=== PATIENT | female | born 1985 | race Caucasian/White ===

== ENCOUNTER → 2017-05-23 | Outpatient (CLI) | payer SELFPAY ==
[~2017-05-23] MED LIST: PREN1TAB39 PO
--- NOTE | 2017-05-23 09:52 | Diagnostic Imaging Report ---
INDICATION: Right upper quadrant pain. TECHNIQUE: Multiple real-time borjsa scale sonographic images of the abdomen. CORRELATION STUDY: None FINDINGS: LIVER: Normal echotexture within the visualized portions of the liver. Liver length at 19.6 cm, borderline enlarged. GALLBLADDER: No shadowing gallstones or pericholecystic fluid. COMMON BILE DUCT: Upper limits of normal at 5-6 mm. PANCREAS: Largely obscured by overlying bowel gas. SPLEEN: Unremarkable at 9.4 x 4.4 x 4.1 cm. ABDOMINAL AORTA: Obscured. INFERIOR VENA CAVA: Obscured. RIGHT KIDNEY: 10.9 cm. Unremarkable. LEFT KIDNEY: 11.2 cm. Unremarkable. OTHER: None. IMPRESSION: 1. Overall somewhat limited abdominal ultrasound evaluation. Visualized anatomical structures appearing unremarkable. There is noted borderline hepatomegaly as well as the common bile duct being upper limits of normal in size. Dictated by: Dictated on workstation # [id number]
== END ==
LOC: RAD 07:46
PROVIDERS: ATTEND Nurse Practitioner Family
DX: R10.13 Epigastric pain (principal)
CPT/HCPCS: 76700

== ENCOUNTER → 2017-05-30 | Outpatient (CLI) | payer SELFPAY ==
--- NOTE | 2017-05-30 13:57 | Diagnostic Imaging Report ---
INDICATION: Polycystic ovarian syndrome. TECHNIQUE: Multiple Realtime grayscale images of the pelvis were performed both transabdominally and endovaginally. FINDINGS: The uterus measures 7.5 x 5.3 x 4.8 cm. The endometrium is 9 mm in thickness. No uterine mass is identified. The right ovary measures 2.6 x 2.0 x 3.5 cm and the left ovary measures 1.8 x 2.5 x 2.2 cm. Both ovaries do contain multiple small follicles. There is blood flow to both ovaries. No adnexal mass or free fluid is seen. IMPRESSION: There are multiple ovarian follicles bilaterally, perhaps on the basis of polycystic ovarian syndrome. No other significant abnormality is seen. Dictated by: Dictated on workstation # [id number]
== END ==
LOC: RAD 12:57
PROVIDERS: ATTEND Family Medicine
DX: E28.2 Polycystic ovarian syndrome (principal)
CPT/HCPCS: 76830; 76856

== ENCOUNTER → 2017-11-23 | Outpatient (CLI) | payer OTHER ==
[~2017-11-23] MED LIST changes: +CATHETER FLUSH 10 ML SYR IV PRN
--- NOTE | 2017-11-23 14:18 | Diagnostic Imaging Report ---
CLINICAL INDICATION: Patient with right upper quadrant abdominal pain. COMPARISON: Ultrasound of the abdomen dated 05/23/2017. PROCEDURE: The patient was administered 5.02 millicuries of technetium-99m Choletec. After 60 minutes of the images, one can of Ensure was drunk followed by another 60 minutes of imaging. A nuclear medicine hepatobiliary scan with ejection fraction was performed. FINDINGS: There is prompt uptake and excretion of radiotracer by the liver. Activity is visible in the gallbladder by 10 minutes and the small bowel by 65 minutes. Ejection fraction of the gallbladder is calculated at 3% (normal >35%). The gallbladder does not visibly empty on subsequent imaging. IMPRESSION: Abnormal hepatobiliary scan with low gallbladder ejection fraction of 3%. This may be related to gallbladder dysmotility or chronic cholecystitis. Dictated by: Dictated on workstation # [id number]
== END ==
LOC: CARD 11:37
PROVIDERS: ATTEND Nurse Practitioner Primary Care
DX: R10.11 Right upper quadrant pain (principal); K82.8 Other specified diseases of gallbladder
CPT/HCPCS: 78227

== ENCOUNTER 2018-01-22 11:28 | Outpatient (CLI) | payer OTHER ==
[~2018-01-22] VITALS: Ht 152.4 cm; Wt 92.1 kg
[~2018-01-22 11:28] MED LIST changes: -CATHETER FLUSH 10 ML SYR IV PRN
[2018-01-22] MEDS ORDERED: OMEP20CA12 PO (11:40)
[2018-01-22] MEDS ORDERED: NAPR-1071 PO (11:40)
[2018-01-22] MEDS ORDERED: METF-397 PO (11:40)
[2018-01-22 12:18] LABS: BASOPHILS % (AUTO) 0 % (0-10); EOSINOPHILS # (AUTO) 0.4 10^3/uL (0.0-0.3); EOSINOPHILS % (AUTO) 4 % (0-10); HEMATOCRIT 38 % (35-52); HEMOGLOBIN 13.4 G/DL (11.5-16.0); LYMPHOCYTES % (AUTO) 30 % (12-44); MEAN CORPUSCULAR HEMOGLOBIN 31 PG (25-34); MEAN CORPUSCULAR HGB CONC 36 G/DL (32-36); MEAN CORPUSCULAR VOLUME 86 FL (80-99); MEAN PLATELET VOLUME 10.8 FL (7.4-10.4); MONOCYTES # (AUTO) 0.8 X 10^3 (0.0-1.0); MONOCYTES % (AUTO) 8 % (0-12); NEUTROPHILS # (AUTO) 5.9 X 10^3 (1.8-7.8); NEUTROPHILS % (AUTO) 58 % (42-75); PLATELET COUNT 313 10^3/uL (130-400); RED BLOOD COUNT 4.38 10^6/uL (4.35-5.85); RED CELL DISTRIBUTION WIDTH 13.4 % (10.0-14.5); WHITE BLOOD COUNT 10.2 10^3/uL (4.3-11.0)
[2018-01-22 12:52] LABS: BAND NEUTROPHILS 1 %; BASOPHILS % (MANUAL) 1 %; EOSINOPHILS % (MANUAL) 3 %; LYMPHOCYTES % (MANUAL) 29 %; MONOCYTES % (MANUAL) 8 %; NEUTROPHILS % (MANUAL) 58 %; RBC MORPH NORMAL
== END 2018-01-22 13:58 ==
LOC: PREOP 11:28
PROVIDERS: ATTEND Surgery
DX: Z01.812 Encounter for preprocedural laboratory examination (principal); Z11.2 Encounter for screening for other bacterial diseases; R10.11 Right upper quadrant pain; K82.8 Other specified diseases of gallbladder
CPT/HCPCS: 36415; 85007; 85027; 87081

== ENCOUNTER 2018-01-25 07:51 | Day surgery (SDC) | payer OTHER ==
[~2018-01-25] VITALS: Ht 152.4 cm; Wt 92.1 kg
[~2018-01-25 07:51] MED LIST changes: +METF-397 PO; +NAPR-1071 PO; +OMEP20CA12 PO
[2018-01-25] MEDS ORDERED: LIDOCAINE 1% INJ 20 ML 20 ML VIAL ONE (07:58)
[2018-01-25] MEDS ORDERED: BUPIVACAINE 0.5% 30 ML (SENSORCAINE) VIAL ONE (07:58)
[2018-01-25 08:00] VITALS: BP 123/80
--- OUTSIDE RECORDS SUMMARY | 2018-01-25 08:28 | XMS REPORT ---
Author Author ELISE NGUYEN [facility] Address [address] [place] [address] Care Team Providers Care Personal Care Aid Name Role Phone ELISE NGUYEN Unavailable PROBLEMS Type Condition ICD9-CM Code KVG95-GD Code Onset Dates Condition Status SNOMED Code Problem Other chronic pain G89.29 Active 92595149 Problem Irregular menstrual cycle N92.6 Active 06947116 Problem Atypical glandular cells of undetermined significance (TIMBO) on cervical Pap smear R87.619 Active 121566029 Problem Abnormal gall bladder diagnostic imaging R93.2 Active 040851490 Problem Polycystic ovarian syndrome E28.2 Active 24620517 Problem GERD without esophagitis K21.9 Active 967839617 ALLERGIES No Information ENCOUNTERS Encounter Location Date Diagnosis [place] [id number] [place] [address] 51702- 9649 Nov, Abnormal gall bladder diagnostic imaging R93.2 [place] [id number] [place] [address] 69365- 8650 Oct, [facility] [id number] [place] [address] 28189- 5193 Oct, GERD without esophagitis K21.9 ; Irregular menstrual cycle N92.6 ; Polycystic ovarian syndrome E28.2 ; Pain in thoracic spine M54.6 ; Other chronic pain G89.29 ; Right upper quadrant abdominal pain R10.11 and BMI 40.0-44.9, adult Z68.41 [facility] [id number] [place] [address] [id number] 16 Jun, 2017 Dental examination Z01.20 [facility] [id number] [place] [address] 83819- 5115 05 Jun, 2017 Dental examination Z01.20 [facility] [id number] [place] [address] 74068- 4748 May, Polycystic ovarian syndrome E28.2 [place] [address] 80735- 0829 May, Right upper quadrant pain R10.11 [place] [address] 48380- 5165 May, [place] [address] 89564- 9097 May, Irregular menstrual cycle N92.6 ; Dyspepsia R10.13 and Right upper quadrant pain R10.11 [place] [address] 32718- 7826 Nov, [place] [address] 45990- 8340 Nov, Muscle spasm of back M62.830 and GERD without esophagitis K21.9 [place] [address] 86761- 8312 Mar, Atypical glandular cells of undetermined significance (TIMBO ) on cervical Pap smear R87.619 [place] [address] 45547- 0467 Jan, Chronic idiopathic constipation K59.04 ; Cervical high risk HPV (human papillomavirus) test positive R87.810 ; Irregular periods N92.6 ; Nausea R11.0 ; Well woman exam Z01.419 ; Excessive thirst R63.1 and Hematochezia K92.1 [place] [id number] [place] [address] 83649- 2464 30 Sep, 2015 Routine follow-up Z39.2 ; Encounter for Depo- Provera contraception Z30.42 ; Cervical high risk HPV (human papillomavirus) test positive R87.810 and control counseling Z30.9 [place] [id number] [place] [address] 83438- 8973 20 Jul, 2015 Encounter for supervision of other normal , third trimester Z34.83 [place] [address] [address] 9345 Jul, Encounter for supervision of other normal , third trimester Z34.83 [facility] [address] [address] 2454 Jul, Encounter for supervision of other normal , third trimester Z34.83 [place] [id number] [place] [address] 84895- 6993 Jul, [place] [id number] [place] [address] 51323- 7615 Jun, Encounter for supervision of other normal , second trimester Z34.82 [place] [id number] [place] [address] 59082- 4027 Jun, 34 weeks gestation of Z3A.34 [place] [id number] [place] [address] 03796- 3228 Jun, Encounter for supervision of other normal , third trimester Z34.83 [place] [address] [place] [address] 65172- 4282 Jun, Z33.1 ; Urinary tract infection N39.0 and Encounter for immunization Z23 [place] [address] [address]- 4694 Jun, Encounter for supervision of other normal , second trimester Z34.82 [place] [address] [address]- 3584 May, Encounter for supervision of other normal , second trimester Z34.82 [place] [id number] [place] [address] 59549- 8644 Mar, 21 weeks gestation of Z3A.21 [place] [address], [place] [address]- 0006 Mar, [place] [id number] [place] [address] 32944- 5157 Mar, [place] [id number] [place] [address] 47386- 2400 Mar, Encounter for supervision of other normal , second trimester Z34.82 ; Hematemesis K92.0 ; Nausea and vomiting during O21.9 and 20 weeks gestation of Z3A.20 [place] [address] 86305- 1289 Mar, Encounter for supervision of other normal , second trimester Z34.82 and Encounter for supervision of normal intrauterine in multigravida, antepartum Z34.[address] 24934- 7203 Jan, Encounter for supervision of other normal , second trimester Z34.[address] 35604- 8695 Dec, History of insulin resistance V12.29 and Supervision of other normal V22.1 [place] [address] 59490- 5696 Dec, test performed, confirmed V72.42 [place] [address] 06027- 0065 Nov, Urinary frequency 788.41 ; Vaginal discharge 623.5 ; Pelvic pain in female 625.9 ; Cervical motion tenderness 625.8 and Cervicitis 616.0 [place] [id number] [place] [address] 33831- 9953 Jul, [place] [address] 71507- 1072 Jul, [place] [address] 94794- 7554 Jun, [place] [id number] [place] [address] 33392- 5459 Jun, [place] [address] [facility] [id number] [place] [address]- 0288 Jun, 2014 [facility] [place] [facility] [address] [id number] [place] [address]- 4890 Jun, 2014 [facility] [place] [facility] [address] [id number] [place] [address]- 9024 Jun, 2014 [facility] [place] [facility] [address] [id number] [place] [address]- 2623 Jun, 2014 [facility] [place] [facility] [address] [id number] [place] [address]- 4725 Jun, 2014 [facility] [place] [facility] [address] [id number] [place] [address]- 4811 Jun, 2014 [facility] [place] [facility] [address] [id number] [place] [address]- 8887 Jun, 2014 [facility] [place] [facility] [address] [id number] [place] [address]- 1465 Jun, 2014 [facility] [place] [facility] [address] [id number] [place] [address]- 2966 Jun, 2014 [facility] [place] [facility] [address] [facility] [id number] [place] [address]- 2392 Jun, 2014 [facility] [place] [facility] [address] [id number] [place] [address]- 9300 August, [facility] [place] [facility] [address] [id number] [place] [address]- 5331 August, [facility] [place] [facility] [address] [id number] [place] [address]- 3265 August, [facility] [place] [facility] [address] [id number] [place] [address]- 0831 August, [facility] [place] [facility] [address] [id number] [place] [address]- 2620 August, [facility] [place] [facility] [address] [id number] [address]- 1701 Nov, [facility] [address] [id number] [place] [address]- 7107 Nov, [facility] [place] [facility] [address] [id number] [place] [address]- 7894 Oct, [facility] [place] [facility] [address] [id number] [place] [address]- 0686 Oct, [facility] [place] [facility] [address] [id number] [place] [address]- 0226 Oct, [facility] [address] [id number] [place] [address]- 4597 Oct, [facility] [place] [facility] [address] [id number] [place] [address]- 9861 Oct, [facility] [address] [id number] [place] [address]- 2227 Sep, [facility] [place] [facility] [address] [id number] [place] [address]- 6067 Sep, [facility] [address] [id number] [place] [address]- 4447 August, [facility] [address] [id number] [place] [address]- 6283 Jul, [facility] [place] [facility] [address] [id number] [place] [address]- 1772 Jul, [facility] [place] [facility] [address] [id number] [place] [address]- 2345 Jul, [facility] [place] [facility] [address] [id number] [place] [address]- 0101 Jun, [facility] [place] [facility] [address] [id number] [place] [address]- 4957 Jun, [facility] [place] [facility] [address] [id number] [place] [address]- 0048 Jun, [facility] [place] [facility] [address] [facility] [id number] [address]80 May, [facility] [id number]- 9171 May, [facility] [address] [facility] [id number] 3106 May, [facility] [address] [facility] [id number] [address] 4555 Mar, [facility] [address] [facility] [id number] [address]- 1294 Mar, IMMUNIZATIONS No Known Immunizations SOCIAL HISTORY Never Assessed REASON FOR VISIT Requests return call PLAN OF CARE VITAL SIGNS MEDICATIONS Unknown Medications RESULTS No Results PROCEDURES No Known procedures INSTRUCTIONS MEDICATIONS ADMINISTERED No Known Medications MEDICAL (GENERAL) HISTORY Type Description Date Medical History Cervical high risk HPV (human papillomavirus) test positive Hospitalization History child
--- OUTSIDE RECORDS SUMMARY | 2018-01-25 08:28 | XMS REPORT ---
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 Role Phone ELISE NGUYEN Unavailable PROBLEMS Type Condition ICD9-CM Code SLT31-XT Code Onset Dates Condition Status SNOMED Code Problem Other chronic pain G89.29 Active 40774837 Problem Irregular menstrual cycle N92.6 Active 53145201 Problem Atypical glandular cells of undetermined significance (TIMBO) on cervical Pap smear R87.619 Active 575600165 Problem Abnormal gall bladder diagnostic imaging R93.2 Active 609400478 Problem Polycystic ovarian syndrome E28.2 Active 41619914 Problem GERD without esophagitis K21.9 Active 113730140 ALLERGIES No Known Allergies ENCOUNTERS Encounter Location Date Diagnosis [place] [id number] [place] [address] 64291- 9728 Nov, Abnormal gall bladder diagnostic imaging R93.2 [place] [id number] [place] [address] 86832- 6703 Oct, [facility] [id number] [place] [address] 87553- 6315 Oct, GERD without esophagitis K21.9 ; Irregular menstrual cycle N92.6 ; Polycystic ovarian syndrome E28.2 ; Pain in thoracic spine M54.6 ; Other chronic pain G89.29 ; Right upper quadrant abdominal pain R10.11 and BMI 40.0-44.9, adult Z68.41 [facility] [address] [place] [address] [id number] 16 Jun, 2017 Dental examination Z01.20 [facility] [id number] [place] [address] 78804- 8395 05 Jun, 2017 Dental examination Z01.20 [facility] [id number] [place] [address] 06115- 5087 May, Polycystic ovarian syndrome E28.2 [place] [address] 38212- 0453 May, Right upper quadrant pain R10.11 [place] [address] 96745- 2624 May, [place] [address] 93815- 2165 May, Irregular menstrual cycle N92.6 ; Dyspepsia R10.13 and Right upper quadrant pain R10.11 [place] [address] 98870- 7927 Nov, [place] [address] 42286- 4943 Nov, Muscle spasm of back M62.830 and GERD without esophagitis K21.9 [place] [address] 05601- 5243 Mar, Atypical glandular cells of undetermined significance (TIMBO ) on cervical Pap smear R87.619 [place] [address] 24590- 0252 Jan, Chronic idiopathic constipation K59.04 ; Cervical high risk HPV (human papillomavirus) test positive R87.810 ; Irregular periods N92.6 ; Nausea R11.0 ; Well woman exam Z01.419 ; Excessive thirst R63.1 and Hematochezia K92.1 [place] [id number] [place] [address] 04846- 9166 30 Sep, 2015 Routine follow-up Z39.2 ; Encounter for Depo- Provera contraception Z30.42 ; Cervical high risk HPV (human papillomavirus) test positive R87.810 and control counseling Z30.9 [place] [id number] [place] [address] 77699- 6556 Jul, Encounter for supervision of other normal , third trimester Z34.83 [place] [address], [place] [address]- 5132 Jul, Encounter for supervision of other normal , third trimester Z34.83 [facility] [address], [place] [address]- 6723 Jul, Encounter for supervision of other normal , third trimester Z34.83 [place] [id number] [place] [address] 60560- 9393 Jul, [place] [id number] [place] [address] 85784- 0541 Jun, Encounter for supervision of other normal , second trimester Z34.82 [place] [id number] [address]- 5013 Jun, 34 weeks gestation of Z3A.34 [place] [id number] [place] [address] 06941- 0932 Jun, Encounter for supervision of other normal , third trimester Z34.83 [place] [address] [place] [address] 01758- 0263 Jun, Z33.1 ; Urinary tract infection N39.0 and Encounter for immunization Z23 [place] [address], [place] [address]- 5994 Jun, Encounter for supervision of other normal , second trimester Z34.82 [place] [address], [place] [address]- 9083 May, Encounter for supervision of other normal , second trimester Z34.82 [place] [id number] [place] [address] 66851- 1742 Mar, 21 weeks gestation of Z3A.21 [place] [address], [place] [address]- 1314 Mar, [place] [id number] [place] [address] 31664- 8293 Mar, [place] [id number] [place] [address] 08492- 9931 Mar, Encounter for supervision of other normal , second trimester Z34.82 ; Hematemesis K92.0 ; Nausea and vomiting during O21.9 and 20 weeks gestation of Z3A.20 [place] [address] 71300- 6377 Mar, Encounter for supervision of other normal , second trimester Z34.82 and Encounter for supervision of normal intrauterine in multigravida, antepartum Z34.90 [place] [address] 04001- 7460 Jan, Encounter for supervision of other normal , second trimester Z34.82 [place] [address] 90130- 2626 Dec, History of insulin resistance V12.29 and Supervision of other normal V22.1 [place] [address] 13730- 9576 Dec, test performed, confirmed V72.42 [place] [address] 75578- 4659 Nov, Urinary frequency 788.41 ; Vaginal discharge 623.5 ; Pelvic pain in female 625.9 ; Cervical motion tenderness 625.8 and Cervicitis 616.0 [place] [id number] [place] [address] 99621- 2293 Jul, [place] [address] 09716- 4243 Jul, [place] [address] 32790- 0553 Jun, [place] [address] 59494- 6369 Jun, [place] [address] [id number] [place] [address]- 8623 Jun, 2014 [facility] [place] [facility] [address] [id number] [place] [address]- 9231 Jun, 2014 [facility] [place] [facility] [address] [id number] [place] [address]- 7750 Jun, 2014 [facility] [place] [facility] [address] [id number] [place] [address]- 1313 Jun, 2014 [facility] [place] [facility] [address] [id number] [place] [address]- 1190 Jun, 2014 [facility] [place] [facility] [address] [id number] [place] [address]- 9139 Jun, 2014 [facility] [place] [facility] [address] [id number] [place] [address]- 9145 Jun, 2014 [facility] [place] [facility] [address] [id number] [place] [address]- 6277 Jun, 2014 [facility] [place] [facility] [address] [id number] [place] [address]- 3451 Jun, 2014 [facility] [place] [facility] [address] [facility] [id number] [place] [address]- 8515 Jun, 2014 [facility] [place] [facility] [address] [id number] [place] [address]- 6983 August, [facility] [place] [facility] [address] [id number] [place] [address]- 8944 August, [facility] [place] [facility] [address] [id number] [place] [address]- 8631 August, [facility] [place] [facility] [address] [id number] [place] [address]- 7903 August, [facility] [place] [facility] [address] [id number] [place] [address]- 1176 August, [facility] [place] [facility] [address] [id number] [place] [address]- 4352 Nov, [facility] [address] [id number] [place] [address]- 5595 Nov, [facility] [place] [facility] [address] [id number] [place] [address]- 1939 Oct, [facility] [place] [facility] [address] [id number] [place] [address]- 5716 Oct, [facility] [place] [facility] [address] [id number] [place] [address]- 3849 Oct, [facility] [place] [facility] [address] [id number] [place] [address]- 2631 Oct, [facility] [place] [facility] [address] [id number] [place] [address]- 9728 Oct, [facility] [address] [id number] [place] [address]- 6760 Sep, [facility] [place] [facility] [address] [id number] [place] [address]- 7556 Sep, [facility] [place] [facility] [address] [id number] [place] [address]- 9238 August, [facility] [place] [facility] [address] [id number] [place] [address]- 3594 Jul, [facility] [place] [facility] [address] [id number] [place] [address]- 1695 Jul, [facility] [place] [facility] [address] [id number] [place] [address]- 1749 Jul, [facility] [place] [facility] [address] [id number] [place] [address]- 2877 Jun, [facility] [place] [facility] [address] [id number] [place] [address]- 5499 Jun, [facility] [place] [facility] [address] [id number] [place] [address]- 7376 Jun, [facility] [address] [facility] [id number], [place] [address]- 2566 May, [facility] [address] [facility] [id number], [place] [address]- 8778 May, [facility] [address] [facility] [id number], [place] [address]- 7156 May, [facility] [address] [facility] [id number], [place] [address]- 3732 Mar, [facility] [address] [facility] [id number], [place] [address]- 9635 Mar, IMMUNIZATIONS No Known Immunizations SOCIAL HISTORY Never Assessed REASON FOR VISIT Transition of Care / patient state she is having back pain and irregular periods last one was in august-- kyler [facility], patient is requesting urine test PLAN OF CARE Activity Details Follow Up 2 Weeks Reason:Well woman exam/ PAP VITAL SIGNS Height 59 in 2017-11-14 Weight 200.0 lbs 2017-11-14 Temperature 98.7 degrees Fahrenheit 2017-11-14 Heart Rate 78 bpm 2017-11-14 Respiratory Rate 18 2017-11-14 BMI 40.39 kg/m2 2017-11-14 Blood pressure systolic 126 mmHg 2017-11-14 Blood pressure diastolic 86 mmHg 2017-11-14 MEDICATIONS Medication Instructions Dosage Frequency Start Date End Date Duration Status Metformin HCl 500 mg Orally Twice a day 1 tablet with meals 12h May, 90 day(s) Active Esomeprazole Magnesium 20 mg Orally Once a day on an empty stomach 1 capsule Oct, 90 days Active Naproxen 500 mg Orally every 12 hrs prn back pain 1/2 tablet with food or milk as needed Oct, Jan, 90 days Active Tylenol Active RESULTS Name Result Date Reference Range TEST, URINE (IN HOUSE) 2017-11-14 RESULTS negative Lot # [id number] Control + Exp date 03/2019 HIDA Scan 2017-11-23 PROCEDURES Procedure Date Ordered Result Body Site URINE TEST November 14, 2017 INSTRUCTIONS MEDICATIONS ADMINISTERED No Known Medications MEDICAL (GENERAL) HISTORY Type Description Date Medical History Cervical high risk HPV (human papillomavirus) test positive Hospitalization History child
--- OUTSIDE RECORDS SUMMARY | 2018-01-25 08:28 | XMS REPORT ---
Author Author ELISE NGUYEN [facility] Address [address] [place] [address] Care Team Providers Care Precision Honing Machine Operator Name Role Phone ELISE NGUYEN Unavailable PROBLEMS Type Condition ICD9-CM Code AKL25-LX Code Onset Dates Condition Status SNOMED Code Problem Other chronic pain G89.29 Active 15219919 Problem Irregular menstrual cycle N92.6 Active 90232877 Problem Atypical glandular cells of undetermined significance (TIMBO) on cervical Pap smear R87.619 Active 097298200 Problem Abnormal gall bladder diagnostic imaging R93.2 Active 835410199 Problem Polycystic ovarian syndrome E28.2 Active 92005552 Problem GERD without esophagitis K21.9 Active 298741520 ALLERGIES No Information ENCOUNTERS Encounter Location Date Diagnosis [place] [id number] [place] [address] 13920- 0889 Nov, Abnormal gall bladder diagnostic imaging R93.2 [place] [id number] [place] [address] 37857- 7033 Oct, [facility] [id number] [place] [address] 94652- 3082 Oct, GERD without esophagitis K21.9 ; Irregular menstrual cycle N92.6 ; Polycystic ovarian syndrome E28.2 ; Pain in thoracic spine M54.6 ; Other chronic pain G89.29 ; Right upper quadrant abdominal pain R10.11 and BMI 40.0-44.9, adult Z68.41 [facility] [id number] [place] [address] [id number] 16 Jun, 2017 Dental examination Z01.20 [facility] [id number] [place] [address] 65417- 0378 05 Jun, 2017 Dental examination Z01.20 [facility] [id number] [place] [address] 27194- 6141 May, Polycystic ovarian syndrome E28.2 [place] [address] 11813- 4357 May, Right upper quadrant pain R10.11 [place] [address] 66396- 7451 May, Irregular menstrual cycle N92.6 ; Dyspepsia R10.13 and Right upper quadrant pain R10.11 [place] [id number] [place] [address] 91935- 8427 May, [place] [address] 97803- 8709 Nov, [place] [address] 62009- 9723 Nov, Muscle spasm of back M62.830 and GERD without esophagitis K21.9 [place] [id number] [place] [address] 19205- 2788 Mar, Atypical glandular cells of undetermined significance (TIMBO ) on cervical Pap smear R87.619 [place] [id number] [place] [address] 73334- 2390 Jan, Chronic idiopathic constipation K59.04 ; Cervical high risk HPV (human papillomavirus) test positive R87.810 ; Irregular periods N92.6 ; Nausea R11.0 ; Well woman exam Z01.419 ; Excessive thirst R63.1 and Hematochezia K92.1 [place] [id number] [place] [address] 97319- 3362 30 Sep, 2015 Routine follow-up Z39.2 ; Encounter for Depo- Provera contraception Z30.42 ; Cervical high risk HPV (human papillomavirus) test positive R87.810 and control counseling Z30.9 [place] [id number] [place] [address] 47987- 7161 20 Jul, 2015 Encounter for supervision of other normal , third trimester Z34.83 [place] [address], [place] [address]- 1771 Jul, Encounter for supervision of other normal , third trimester Z34.83 [facility] [address], [place] [address] 4619 Jul, Encounter for supervision of other normal , third trimester Z34.83 [place] [id number] [place] [address] 87831- 9605 Jul, [place] [id number] [place] [address] 51713- 9403 Jun, Encounter for supervision of other normal , second trimester Z34.82 [place] [id number] [place] [address] 31821- 9287 Jun, 34 weeks gestation of Z3A.34 [place] [id number] [place] [address] 07278- 1035 Jun, Encounter for supervision of other normal , third trimester Z34.83 [place] [address] [place] [address] 57960- 2438 Jun, Z33.1 ; Urinary tract infection N39.0 and Encounter for immunization Z23 [place] [address], [place] [address]- 9585 Jun, Encounter for supervision of other normal , second trimester Z34.82 [place] [address], [place] [address]- 2810 May, Encounter for supervision of other normal , second trimester Z34.82 [place] [id number] [place] [address] 20966- 6642 Mar, 21 weeks gestation of Z3A.21 [place] [address], [place] [address]- 4356 Mar, [place] [id number] [place] [address] 12350- 4683 Mar, [place] [id number] [place] [address] 07235- 9789 Mar, Encounter for supervision of other normal , second trimester Z34.82 ; Hematemesis K92.0 ; Nausea and vomiting during O21.9 and 20 weeks gestation of Z3A.20 [place] [address] 13960- 1192 Mar, Encounter for supervision of other normal , second trimester Z34.82 and Encounter for supervision of normal intrauterine in multigravida, antepartum Z34.[address] 21274- 4044 Jan, Encounter for supervision of other normal , second trimester Z34.[address] 99604- 5886 Dec, History of insulin resistance V12.29 and Supervision of other normal V22.1 [place] [address] 28545- 3221 Dec, test performed, confirmed V72.42 [place] [address] 53775- 6520 Nov, Urinary frequency 788.41 ; Vaginal discharge 623.5 ; Pelvic pain in female 625.9 ; Cervical motion tenderness 625.8 and Cervicitis 616.0 [place] [id number] [place] [address] 10531- 3945 Jul, [place] [address] 13088- 7297 Jul, [place] [address] 39777- 3885 Jun, [place] [id number] [place] [address] 30618- 2024 Jun, [place] [address] [facility] [id number] [place] [address]- 4261 Jun, 2014 [facility] [place] [facility] [address] [id number] [place] [address]- 7729 Jun, 2014 [facility] [place] [facility] [address] [id number] [place] [address]- 1305 Jun, 2014 [facility] [place] [facility] [address] [id number] [place] [address]- 2699 Jun, 2014 [facility] [place] [facility] [address] [id number] [place] [address]- 5328 Jun, 2014 [facility] [place] [facility] [address] [id number] [place] [address]- 9227 Jun, 2014 [facility] [place] [facility] [address] [id number] [place] [address]- 5340 Jun, 2014 [facility] [place] [facility] [address] [id number] [place] [address]- 3513 Jun, 2014 [facility] [place] [facility] [address] [id number] [place] [address]- 4338 Jun, 2014 [facility] [place] [facility] [address] [facility] [id number] [place] [address]- 6146 Jun, 2014 [facility] [place] [facility] [address] [id number] [place] [address]- 6372 August, [facility] [place] [facility] [address] [id number] [place] [address]- 2464 August, [facility] [place] [facility] [address] [id number] [place] [address]- 9107 August, [facility] [place] [facility] [address] [id number] [place] [address]- 3485 August, [facility] [place] [facility] [address] [id number] [place] [address]- 7388 August, [facility] [place] [facility] [address] [id number], [place] [address]- 1535 Nov, [facility] [address] [id number] [place] [address]- 9453 Nov, [facility] [place] [facility] [address] [id number] [place] [address]- 8255 Oct, [facility] [place] [facility] [address] [id number] [place] [address]- 0506 Oct, [facility] [place] [facility] [address] [id number] [place] [address]- 5194 Oct, [facility] [address] [id number] [place] [address]- 5833 Oct, [facility] [place] [facility] [address] [id number] [place] [address]- 2853 Oct, [facility] [id number] [place] [address]- 6276 Sep, [facility] [place] [facility] [address] [id number] [place] [address]- 7811 Sep, [facility] [id number] [place] [address]- 2268 August, [facility] [id number] [place] [address]- 7889 Jul, [facility] [place] [facility] [address] [id number] [place] [address]- 2184 Jul, [facility] [place] [facility] [address] [id number] [place] [address]- 6156 Jul, [facility] [place] [facility] [address] [id number] [place] [address]- 6578 Jun, [facility] [place] [facility] [address] [id number] [place] [address]- 6803 Jun, [facility] [place] [facility] [id number] [place] [address]- 8847 Jun, [facility] [place] [facility] [address] [facility] [id number], [place] [address]- 5916 May, [facility] [id number], [place] [address]- 3703 May, [facility] [id number], [place] [address]- 6918 May, [facility] [address] [facility] [id number], [place] [address]- 6062 Mar, [facility] [address] [facility] [id number] [address] 6266 Mar, IMMUNIZATIONS No Known Immunizations SOCIAL HISTORY Never Assessed REASON FOR VISIT PLAN OF CARE VITAL SIGNS MEDICATIONS Unknown Medications RESULTS No Results PROCEDURES No Known procedures INSTRUCTIONS MEDICATIONS ADMINISTERED No Known Medications MEDICAL (GENERAL) HISTORY Type Description Date Medical History Cervical high risk HPV (human papillomavirus) test positive Hospitalization History child
--- OUTSIDE RECORDS SUMMARY | 2018-01-25 08:28 | XMS REPORT ---
Author Author VADIM FONG [facility] Address [address] [place] [address] Care Team Providers Care Commercial Singer Name Role Phone VADIM FONG Unavailable PROBLEMS Type Condition ICD9-CM Code UAV94-UN Code Onset Dates Condition Status SNOMED Code Problem Irregular menstrual cycle N92.6 Active 31078390 Problem Polycystic ovarian syndrome E28.2 Active 08561986 Problem GERD without esophagitis K21.9 Active 851945777 Problem Atypical glandular cells of undetermined significance (TIMBO) on cervical Pap smear R87.619 Active 637602671 ALLERGIES No Known Allergies ENCOUNTERS Encounter Location Date Diagnosis [place] [address] 98321- 8567 Sep, [facility] [address] [id number] Jun, Dental examination Z01.20 [place] [address] 61418- 9752 05 Jun, 2017 Dental examination Z01.20 [place] [address] [place] [address] [id number] [place] [address] 74779- 3013 May, Polycystic ovarian syndrome E28.2 [facility] [place] [address] 62439- 5464 May, Right upper quadrant pain R10.11 [place] [address] 06360- 3271 May, [facility] [place] [address] 82961- 2230 May, Irregular menstrual cycle N92.6 ; Dyspepsia R10.13 and Right upper quadrant pain R10.11 [place] [id number] [place] [address] 26567- 6830 Nov, [place] [address] 53742- 8654 Nov, Muscle spasm of back M62.830 and GERD without esophagitis K21.9 [place] [address] 86326- 4461 Mar, Atypical glandular cells of undetermined significance (TIMBO ) on cervical Pap smear R87.619 [place] [address] 57159- 9987 Jan, Chronic idiopathic constipation K59.04 ; Cervical high risk HPV (human papillomavirus) test positive R87.810 ; Irregular periods N92.6 ; Nausea R11.0 ; Well woman exam Z01.419 ; Excessive thirst R63.1 and Hematochezia K92.1 [place] [address] 08154- 4597 Sep, Routine follow-up Z39.2 ; Encounter for Depo- Provera contraception Z30.42 ; Cervical high risk HPV (human papillomavirus) test positive R87.810 and control counseling Z30.9 [place] [id number] [place] [address] 71250- 6516 20 Jul, 2015 Encounter for supervision of other normal , third trimester Z34.83 [place] [id number] [place] [address] 26832- 7694 Jul, Encounter for supervision of other normal , third trimester Z34.83 [place] [id number] [place] [address] 15346- 5734 Jul, Encounter for supervision of other normal , third trimester Z34.83 [place] [id number] [place] [address] 36531- 8292 Jul, [place] [address] 13060- 8835 Jun, Encounter for supervision of other normal , second trimester Z34.82 [place] [address], [place] [address]- 4379 Jun, 34 weeks gestation of Z3A.34 [place] [address], [place] [address]- 3438 Jun, Encounter for supervision of other normal , third trimester Z34.83 [place] [id number] [place] [address] 27886- 3849 24 Jun, 2015 Z33.1 ; Urinary tract infection N39.0 and Encounter for immunization Z23 [place] [id number] [place] [address] 91906- 1573 10 Jun, 2015 Encounter for supervision of other normal , second trimester Z34.82 [place] [address] [place] [address] 63705- 9305 May, Encounter for supervision of other normal , second trimester Z34.82 [place] [id number] [place] [address] 55750- 9326 Mar, 21 weeks gestation of Z3A.21 [place] [address] [place] [address] 78482- 7569 Mar, [place] [address] [place] [address] 09192- 9194 Mar, [place] [address] [place] [address] 24158- 9257 Mar, Encounter for supervision of other normal , second trimester Z34.82 ; Hematemesis K92.0 ; Nausea and vomiting during O21.9 and 20 weeks gestation of Z3A.20 [place] [address], [place] [address]- 9285 Mar, Encounter for supervision of other normal , second trimester Z34.82 and Encounter for supervision of normal intrauterine in multigravida, antepartum Z34.90 [place] [id number] [place] [address] 22146- 6441 28 Jan, 2015 Encounter for supervision of other normal , second trimester Z34.82 [facility] [place] [id number] [place] [address] 82773- 0317 28 Dec, 2014 History of insulin resistance V12.29 and Supervision of other normal V22.1 [facility] [place] [id number] [place] [address] 37416- 0515 21 Dec, 2014 test performed, confirmed V72.42 [facility] [place] [id number] [place] [address] 99472- 6627 15 Nov, 2014 Urinary frequency 788.41 ; Vaginal discharge 623.5 ; Pelvic pain in female 625.9 ; Cervical motion tenderness 625.8 and Cervicitis 616.0 [facility] [place] [id number] [place] [address] 16349- 7390 14 Jul, 2014 [facility] [place] [address] 55050- 0885 Jul, [facility] [place] [id number] [place] [address] 67289- 5371 Jun, [facility] [place] [id number] [place] [address] 25905- 9019 Jun, [facility] [place] [id number] [place] [address] 50983- 4732 Jun, [facility] [place] [id number] [place] [address] 74729- 8937 Jun, [facility] [place] [id number] [place] [address] 24921- 7563 Jun, [facility] [place] [id number] [place] [address] 61127- 1096 Jun, [facility] [place] [id number] [place] [address] 50307- 2169 Jun, [facility] [place] [facility] [address] [id number] [place] [address]- 6278 11 Jun, 2014 [facility] [place] [facility] [address] [id number] [place] [address]- 1135 Jun, 2014 [facility] [place] [facility] [address] [id number] [place] [address]- 9216 10 Jun, 2014 [facility] [place] [facility] [address] [id number] [place] [address]- 2746 Jun, 2014 [facility] [place] [facility] [address] [id number] [place] [address]- 8441 Jun, 2014 [facility] [place] [facility] [address] [id number] [place] [address]- 9904 August, [facility] [place] [facility] [address] [id number] [place] [address]- 7159 August, [facility] [place] [facility] [address] [id number] [place] [address]- 1770 August, [facility] [place] [facility] [address] [id number] [place] [address]- 4415 August, [facility] [place] [facility] [address] [id number] [place] [address]- 0165 August, [facility] [place] [facility] [address] [id number] [place] [address]- 5037 Nov, [facility] [place] [facility] [address] [id number] [place] [address]- 6845 Nov, [facility] [place] [facility] [address] [id number] [place] [address]- 6580 Oct, [facility] [place] [facility] [address] [id number] [place] [address]- 4079 Oct, [facility] [place] [facility] [address] [id number] [place] [address]- 8546 Oct, [facility] [place] [facility] [address] [id number] [place] [address]- 7988 Oct, [facility] [place] [address] [facility] [id number] [place] [address]- 9785 Oct, [facility] [place] [address] [facility] [id number] [address]- 7046 Sep, [facility] [place] [address] [id number] [place] [address] 2546 Sep, [facility] [place] [address] [facility] [id number], [place] [address]- 0997 August, [facility] [place] [address] [facility] [id number] [place] [address]- 4890 Jul, [facility] [place] [address] [id number] [place] [address]- 6776 Jul, [facility] [place] [address] [place] [address]- 9256 Jul, [facility] [place] [address] [id number] [address]- 2566 Jun, [facility] [place] [address] [id number] [address]- 2133 Jun, [facility] [place] [address] [id number] [address]- 1176 Jun, [facility] [place] [address] [id number] [address]- 6966 May, [facility] [place] [address] [address]- 2746 May, [facility] [place] [address] [facility] [id number], [place] [address]- 6616 May, [facility] [place] [address] [id number] [address]- 6026 Mar, [facility] [place] [address] [id number] [address]- 3056 Mar, IMMUNIZATIONS No Known Immunizations SOCIAL HISTORY Never Assessed REASON FOR VISIT irregular periods , patient states her last period was december , she did a test 2 months ago and was negative -- kyler montes de [facility]ca, having pain on rt upper side of abdomen specially after eating x few months PLAN OF CARE Activity Details Follow Up as scheduled with Dr. Gomez Reason:menses/lab review VITAL SIGNS Height 59 in 2017-05-15 Weight 197.0 lbs 2017-05-15 Temperature 98.6 degrees Fahrenheit 2017-05-15 Heart Rate 78 bpm 2017-05-15 Respiratory Rate 20 2017-05-15 BMI 39.78 kg/m2 2017-05-15 Blood pressure systolic 124 mmHg 2017-05-15 Blood pressure diastolic 78 mmHg 2017-05-15 MEDICATIONS Unknown Medications RESULTS No Results PROCEDURES Procedure Date Ordered Result Body Site VENIPUNCT, ROUTINE* May 15, 2017 URINE TEST May 15, 2017 ASSAY THYROID STIM HORMONE May 15, 2017 COMPLETE CBC W/AUTO DIFF WBC May 15, 2017 GLYCATED HEMOGLOBIN TEST May 15, 2017 IMMUNOASSAY,INFECTIOUS AGENT May 15, 2017 ASSAY OF TOTAL TESTOSTERONE May 15, 2017 ASSAY OF PROLACTIN May 15, 2017 ASSAY OF ESTRADIOL May 15, 2017 GONADOTROPIN (FSH) May 15, 2017 INSTRUCTIONS MEDICATIONS ADMINISTERED No Known Medications MEDICAL (GENERAL) HISTORY Type Description Date Medical History Cervical high risk HPV (human papillomavirus) test positive Hospitalization History child
--- OUTSIDE RECORDS SUMMARY | 2018-01-25 08:29 | XMS REPORT ---
Author VADIM Lynch [facility] eClinicalWorks Address Unknown Phone Unavailable Care Team Providers Care Billet Heater Name Role Phone VADIM FONG CP Unavailable Allergies, Adverse Reactions, Alerts Substance Reaction Event Type N.K.D.A. Info Not Available Non Drug Allergy Problems Problem Type Condition ICD-9 Code Onset Dates Condition Status Assessment Urinary frequency 788.41 Active Problem Leukorrhea, not specified as infective 623.5 Active Problem General counseling for prescription of oral contraceptives V25.01 Active Problem Unspecified symptom associated with female genital organs 625.9 Active Problem Screening examination for venereal disease V74.5 Active Problem Uterine size date discrepancy, unspecified as to episode of care or not applicable 649.60 Active Problem Abdominal pain, unspecified site 789.00 Active Problem Lumbago 724.2 Active Problem Excessive or frequent menstruation 626.2 Active Problem Screening for malignant neoplasm of the cervix V76.2 Active Assessment Cervicitis 616.0 Active Assessment Cervical motion tenderness 625.8 Active Assessment Pelvic pain in female 625.9 Active Assessment Vaginal discharge 623.5 Active Medications Medication Code System Code Instructions Start Date End Date Status Dosage Flagyl [facility] [address]-68 500 MG Orally 2 times a day Dec 13, 2014 Dec 20, 2014 1 tablet Procedures Procedure Coding System Code Date CULTURE, BACTERIA, OTHER CPT-4 51085 Dec 13, 2014 TRICHOMONAS VAGIN, DIR PROBE CPT-4 88407 Dec 13, 2014 URINALYSIS, AUTO, W/O SCOPE CPT-4 79526 Dec 13, 2014 Office Visit, Est Pt., Level 4 CPT-4 15554 Dec 13, 2014 SPECIMEN HANDLING CPT-4 36085 Dec 13, 2014 URINE TEST CPT-4 45136 Dec 13, 2014 No Charge CPT-4 75347 Dec 13, 2014 THER/PROPH/DIAG INJ, SC/IM CPT-4 65076 Dec 13, 2014 ROCEPHIN 1 GM (IM) CPT-4 J0696 Dec 13, 2014 Vital Signs Date/Time: Dec 13, 2014 Temperature 98.0 F Weight 185.2 lbs Height 59 in BMI 37.40 Index Blood Pressure Diastolic 78 mmHg Blood Pressure Systolic 126 mmHg Cardiac Monitoring Heart Rate 78 bpm Results Name Result Date Reference Range Unit Abnormality Flag TEST, URINE (IN HOUSE) Summary Purpose eClinicalWorks Submission
--- OUTSIDE RECORDS SUMMARY | 2018-01-25 08:29 | XMS REPORT ---
Author Author LEONARD NEGRETE [facility] eClinicalWorks Address Unknown Phone Unavailable Care Team Providers Care Logistics Research Engineer Name Role Phone LEONARD NEGRETE CP Unavailable Allergies, Adverse Reactions, Alerts Substance Reaction Event Type N.K.D.A. Info Not Available Non Drug Allergy Problems Problem Type Condition Code Onset Dates Condition Status Assessment Hematochezia K92.1 Active Assessment Well woman exam Z01.419 Active Assessment Excessive thirst R63.1 Active Problem Excessive thirst R63.1 Active Problem Cervical high risk HPV (human papillomavirus) test positive R87.810 Active Problem Irregular periods N92.6 Active Assessment Irregular periods N92.6 Active Assessment Nausea R11.0 Active Assessment Chronic idiopathic constipation K59.04 Active Assessment Cervical high risk HPV (human papillomavirus) test positive R87.810 Active Medications No Known Medications Procedures Procedure Coding System Code Date Preventive Care Est Pt. Age 18-39 CPT-4 05794 Feb 09, 2016 TRICHOMONAS ASSAY W/OPTIC CPT-4 93906 Feb 09, 2016 SPECIMEN HANDLING CPT-4 03988 Feb 09, 2016 THOMSON VAG, DNA, DIR PROBE CPT-4 61523 Feb 09, 2016 No Charge CPT-4 75032 Feb 09, 2016 CULTURE, BACTERIA, OTHER CPT-4 87190 Feb 09, 2016 Vital Signs Date/Time: Feb 09, 2016 Cardiac Monitoring Heart Rate 78 bpm Weight 190.0 lbs Height 59 in BMI 38.37 Index Blood Pressure Diastolic 78 mmHg Blood Pressure Systolic 122 mmHg Results No Known Results Summary Purpose eClinicalWorks Submission
--- OUTSIDE RECORDS SUMMARY | 2018-01-25 08:29 | XMS REPORT ---
Author LUPE Francis [facility] eClinicalWorks Address Unknown Phone Unavailable Care Team Providers Care Pediatric Surgeon Name Role Phone LUPE MALHOTRA CP Unavailable Allergies No Known Allergies Problems Problem Type Condition ICD-9 Code Onset Dates Condition Status Assessment test performed, confirmed V72.42 Active Problem Leukorrhea, not specified as infective [...] malignant neoplasm of the cervix V76.2 Active Medications No Known Medications Procedures Procedure Coding System Code Date URINE TEST CPT-4 92783 Jan 19, 2015 Results No Known Results Summary Purpose eClinicalWorks Submission
--- OUTSIDE RECORDS SUMMARY | 2018-01-25 08:29 | XMS REPORT ---
Author Author CADEN LEONARD [facility] Address [address] [place] [address] Care Team Providers Care Internal Controls Analyst Name Role Phone TRACIE NEGRETEHANY Unavailable PROBLEMS Type Condition ICD9-CM Code [id number] Code Onset Dates Condition Status SNOMED Code Problem Irregular menstrual cycle N92.6 Active 08711464 Problem Polycystic ovarian syndrome E28.2 Active 15170870 Problem GERD without esophagitis K21.9 Active 195643072 Problem Atypical glandular cells of undetermined significance (TIMBO) on cervical Pap smear R87.619 Active 361179787 ALLERGIES No Information ENCOUNTERS Encounter Location Date Diagnosis [place] [id number] [place] [address]001- 1265 Sep, [facility] [id number] [place] [address] [id number] 16 Jun, 2017 Dental examination Z01.20 [place] [id number] [place] [address] 83727- 2131 05 Jun, 2017 Dental examination Z01.20 [place] [id number] [place] [address] 84484- 2516 May, Polycystic ovarian syndrome E28.2 [facility] [facility] [id number] [place] [address] 21796- 3884 May, Right upper quadrant pain R10.11 [place] [id number] [place] [address] 15463- 8739 May, [facility] [place] [facility] [id number] [place] [address] 04706- 9313 May, Irregular menstrual cycle N92.6 ; Dyspepsia R10.13 and Right upper quadrant pain R10.11 [place] [id number] [place] [address] 94538- 1905 Nov, [place] [address] [address]- 388[address] Nov, Muscle spasm of back M62.830 and GERD without esophagitis K21.9 [place] [address] 91684- 2595 Mar, Atypical glandular cells of undetermined significance (TIMBO ) on cervical Pap smear R87.619 [place] [address] 52483- 8793 Jan, Chronic idiopathic constipation K59.04 ; Cervical high risk HPV (human papillomavirus) test positive R87.810 ; Irregular periods N92.6 ; Nausea R11.0 ; Well woman exam Z01.419 ; Excessive thirst R63.1 and Hematochezia K92.1 [place] [address] 35863- 5758 Sep, Routine follow-up Z39.2 ; Encounter for Depo- Provera contraception Z30.42 ; Cervical high risk HPV (human papillomavirus) test positive R87.810 and control counseling Z30.9 [place] [id number] [place] [address] 63683- 2344 20 Jul, 2015 Encounter for supervision of other normal , third trimester Z34.83 [place] [id number] [place] [address] 44117- 6711 Jul, Encounter for supervision of other normal , third trimester Z34.83 [place] [id number] [place] [address] 39735- 1433 Jul, Encounter for supervision of other normal , third trimester Z34.83 [place] [id number] [place] [address] 99276- 9944 Jul, [place] [id number] [place] [address] 53291- 9892 Jun, Encounter for supervision of other normal , second trimester Z34.82 [place] [address] [address] Jun, 34 weeks gestation of Z3A.34 [place] [address] [address] Jun, Encounter for supervision of other normal , third trimester Z34.83 [place] [id number] [place] [address] 09893- 1425 24 Jun, 2015 Z33.1 ; Urinary tract infection N39.0 and Encounter for immunization Z23 [place] [id number] [place] [address] 12811- 7573 10 Jun, 2015 Encounter for supervision of other normal , second trimester Z34.82 [place] [id number] [place] [address] 25031- 4680 May, Encounter for supervision of other normal , second trimester Z34.82 [place] [address] [place] [address] 26173- 6782 Mar, 21 weeks gestation of Z3A.21 [place] [id number] [place] [address] 59996- 1759 Mar, [place] [id number] [place] [address] 91391- 3684 Mar, [place] [id number] [place] [address] 51945- 2722 Mar, Encounter for supervision of other normal , second trimester Z34.82 ; Hematemesis K92.0 ; Nausea and vomiting during O21.9 and 20 weeks gestation of Z3A.20 [place] [address] [place] [address] 86166- 0964 Mar, Encounter for supervision of other normal , second trimester Z34.82 and Encounter for supervision of normal intrauterine in multigravida, antepartum Z34.90 [place] [id number] [place] [address] 60059- 6017 28 Jan, 2015 Encounter for supervision of other normal , second trimester Z34.82 [facility] [facility] [address] 76189- 3755 28 Dec, 2014 History of insulin resistance V12.29 and Supervision of other normal V22.1 [facility] [facility] [id number] [place] [address] 77016- 6720 21 Dec, 2014 test performed, confirmed V72.42 [facility] [facility] [address] 29856- 9021 15 Nov, 2014 Urinary frequency 788.41 ; Vaginal discharge 623.5 ; Pelvic pain in female 625.9 ; Cervical motion tenderness 625.8 and Cervicitis 616.0 [facility] [facility] [id number] [place] [address] 15032- 6112 14 Jul, 2014 [facility] [facility] [address] 60437- 3009 Jul, [facility] [facility] [id number] [place] [address] 36445- 1709 Jun, [facility] [facility] [id number] [place] [address] 50265- 6842 Jun, [facility] [facility] [id number] [place] [address] 57693- 9164 Jun, [facility] [facility] [id number] [place] [address] 45337- 7687 Jun, [facility] [facility] [id number] [place] [address] 73798- 7722 Jun, [facility] [facility] [address] 72168- 9673 Jun, [facility] [facility] [id number] [place] [address] 16973- 3165 Jun, [facility] [facility] [address] [facility] [place] [address] 9297 11 Jun, 2014 [facility] [place] [facility] [address] [id number] [place] [address]- 2829 Jun, 2014 [facility] [place] [facility] [address] [id number] [place] [address]- 9407 10 Jun, 2014 [facility] [place] [facility] [address] [id number] [place] [address]- 6216 Jun, 2014 [facility] [place] [facility] [address] [id number] [place] [address]- 0449 Jun, 2014 [facility] [place] [facility] [address] [id number] [place] [address]- 8364 August, [facility] [place] [facility] [address] [id number] [place] [address]- 3556 August, [facility] [place] [facility] [address] [id number] [place] [address]- 2983 August, [facility] [address] [id number] [place] [address]- 4065 August, [facility] [place] [facility] [address] [id number] [place] [address]- 3730 August, [facility] [place] [facility] [address] [id number] [place] [address]- 8956 Nov, [facility] [place] [facility] [address] [id number] [place] [address]- 9716 Nov, [facility] [place] [facility] [address] [id number] [place] [address]- 1948 Oct, [facility] [place] [facility] [address] [id number] [place] [address]- 7906 Oct, [facility] [place] [facility] [address] [id number] [place] [address]- 2546 Oct, [facility] [place] [facility] [address] [id number] [place] [address]- 1752 Oct, [facility] [facility] [address] [facility] [id number] [address]- 0561 Oct, [facility] [facility] [address] [facility] [id number], [place] [address]- 1546 Sep, [facility] [place] [facility] [address] [facility] [id number] [place] [address]- 8916 Sep, [facility] [place] [facility] [address] [facility] [id number], [place] [address]- 6953 August, [facility] [place] [facility] [address] [facility] [id number] [place] [address]- 8386 Jul, [facility] [place] [facility] [address] [facility] [id number] 6665 Jul, [facility] [place] [facility] [address] [facility] [id number] [place] [address]- 7436 Jul, [facility] [place] [facility] [address] [facility] [id number], [place] [address]- 1148 Jun, [facility] [place] [facility] [address] [facility] [id number], [place] [address]- 3956 Jun, [facility] [facility] [address] [facility] [id number], [place] [address]- 5076 Jun, [facility] [place] [facility] [address] [id number] [address]- 0426 May, [facility] [place] [facility] [address] [facility] [id number], [place] [address]- 3689 May, [facility] [facility] [address] [facility] [id number], [place] [address]- 8943 May, [facility] [facility] [address] [facility] [id number], [place] [address]- 9556 Mar, [facility] [facility] [address] [facility] [id number], [place] [address]- 5624 Mar, IMMUNIZATIONS No Known Immunizations SOCIAL HISTORY Never Assessed REASON FOR VISIT PLAN OF CARE VITAL SIGNS MEDICATIONS Unknown Medications RESULTS No Results PROCEDURES No Known procedures INSTRUCTIONS MEDICATIONS ADMINISTERED No Known Medications MEDICAL (GENERAL) HISTORY Type Description Date Medical History Cervical high risk HPV (human papillomavirus) test positive Hospitalization History child
--- OUTSIDE RECORDS SUMMARY | 2018-01-25 08:29 | XMS REPORT ---
Author Author BLAKE NDIAYE [facility] Address [address] [place] [address] Care Team Providers Care Bartender Server Name Role Phone BLAKE NDIAYE Unavailable PROBLEMS Type Condition ICD9-CM Code THH14-GW Code Onset Dates Condition Status SNOMED Code Problem Irregular menstrual cycle N92.6 Active 13003054 Problem Polycystic ovarian syndrome E28.2 Active 94566769 Problem GERD without esophagitis K21.9 Active 510555937 Problem Atypical glandular cells of undetermined significance (TIMBO) on cervical Pap smear R87.619 Active 736302300 ALLERGIES No Known Allergies ENCOUNTERS Encounter Location Date Diagnosis [place] [address] [address] Nov, [facility] [address] [place] [id number] [place] [id number] Jun, 2017 Dental examination Z01.20 [place] [address] [address] Jun, Dental examination Z01.20 [place] [address] [place] [id number] [place] [address] May, Polycystic ovarian syndrome E28.2 [facility] [address] [place] [id number] [place] [address]- [address]272 May, Right upper quadrant pain R10.11 [place] [address] [place] [id number] [place] [address]- [address] May, [place] [address] [address] May, Irregular menstrual cycle N92.6 ; Dyspepsia R10.13 and Right upper quadrant pain R10.11 [place] [address] [place] [address] Nov, [place] [address] [address] Nov, Muscle spasm of back M62.830 and GERD without esophagitis K21.9 [place] [address] [address] Mar, Atypical glandular cells of undetermined significance (TIMBO ) on cervical Pap smear R87.619 [place] [address] [address] Jan, Chronic idiopathic constipation K59.04 ; Cervical high risk HPV (human papillomavirus) test positive R87.810 ; Irregular periods N92.6 ; Nausea R11.0 ; Well woman exam Z01.419 ; Excessive thirst R63.1 and Hematochezia K92.1 [place] [address] [address] Sep, Encounter for Depo-Provera contraception Z30.42 ; Routine follow-up Z39.2 ; Cervical high risk HPV (human papillomavirus) test positive R87.810 and control counseling Z30.9 [place] [address] [address] 20 Jul, 2015 Encounter for supervision of other normal , third trimester Z34.83 [place] [address] [address]- [address] Jul, Encounter for supervision of other normal , third trimester Z34.83 [place] [address] [place] [id number] [place] [address] 90[address]- [address] Jul, Encounter for supervision of other normal , third trimester Z34.83 [place] [address] [address] Jul, [place] [address] [address]- [address] Jun, Encounter for supervision of other normal , second trimester Z34.82 [place] [address] [place] [address]32- 4[address] Jun, 34 weeks gestation of Z3A.34 [place] [address] [place] [id number] [place] [address] 65[address]- 1419 Jun, Encounter for supervision of other normal , third trimester Z34.83 [place] [address] [place] [id number] [place] [address] 5[address]- 5[address] 24 Jun, 2015 Z33.1 ; Urinary tract infection N39.0 and Encounter for immunization Z23 [place] [address] [place] [id number] [place] [address]31- 9438 10 Jun, 2015 Encounter for supervision of other normal , second trimester Z34.82 [place] [address] [place] [id number] [place] [address] 77999- 6851 May, Encounter for supervision of other normal , second trimester Z34.82 [place] [address] [place] [id number] [place] [address] 58986- 1022 Mar, 21 weeks gestation of Z3A.21 [place] [address] [place] [id number] [place] [address]- 1558 Mar, [place] [address] [place] [id number] [place] [address] 86915- 4119 Mar, [place] [address] [place] [id number] [place] [address] 98986- 5780 Mar, Encounter for supervision of other normal , second trimester Z34.82 ; Hematemesis K92.0 ; Nausea and vomiting during O21.9 and 20 weeks gestation of Z3A.20 [place] [address] [place] [id number] [place] [address] 8[address]95- 9[address] Mar, Encounter for supervision of other normal , second trimester Z34.82 and Encounter for supervision of normal intrauterine in multigravida, antepartum Z34.90 [place] [address] [place] [id number] [place] [address] 26936- 7[address] 28 Jan, 2015 Encounter for supervision of other normal , second trimester Z34.82 [facility] [address] [address]- [address] 28 Dec, 2014 History of insulin resistance V12.29 and Supervision of other normal V22.1 [facility] [address] [address]- [address] 21 Dec, 2014 test performed, confirmed V72.42 [facility] [address] [address]- [address] 15 Nov, 2014 Urinary frequency 788.41 ; Vaginal discharge 623.5 ; Pelvic pain in female 625.9 ; Cervical motion tenderness 625.8 and Cervicitis 616.0 [facility] [address] [address]- [address] 14 Jul, 2014 [facility] [address] [address]- [address] Jul, [facility] [address] [address]- [address] Jun, [facility] [address] [address]- 39[address] Jun, [facility] [address] [place] [id number] [place] [address] 83808- [address] Jun, [facility] [address] [address]- [address] Jun, [facility] [address] [place] [id number] [place] [address] 74478- 9645 Jun, [facility] [address] [address]- [address]6 Jun, [facility] [address] [place] [id number] [place] [address] 11042- 4155 Jun, [facility] [address] [place] [address]- [address] 11 Jun, 2014 [facility] [address] [id number] [place] [address] Jun, 2014 [facility] [place] [facility] [address] [id number] [place] [address] 49[address] 10 Jun, 2014 [facility] [place] [facility] [address] [id number] [place] [address]- 7136 Jun, 2014 [facility] [place] [facility] [address] [id number] [place] [address]- 2499 Jun, 2014 [facility] [place] [facility] [address] [id number] [place] [address]- [address] August, [facility] [address] [id number] [place] [address]- 7180 August, [facility] [address] [id number] [place] [address]- 0313 August, [facility] [address] [id number] [place] [address]- 5795 August, [facility] [place] [facility] [address] [id number] [place] [address]- 2997 August, [facility] [address] [id number] [place] [address]- 5[address] Nov, [facility] [place] [facility] [address] [id number] [place] [address]- 4043 Nov, [facility] [place] [facility] [address] [id number] [place] [address]- 4477 Oct, [facility] [place] [facility] [address] [id number] [place] [address]- 8143 Oct, [facility] [place] [facility] [address] [id number] [place] [address]- 6736 Oct, [facility] [place] [facility] [address] [id number] [place] [address]- 3755 Oct, [facility] [address] [facility] [id number], [place] [address]- [address] Oct, [facility] [address] [facility] [id number][place] [address]- [address] Sep, [facility] [address] [facility] [id number], [place] [address]- 8096 Sep, [facility] [address] [facility] [id number], [place] [address]- [address] August, [facility] [address] [id number] [place] [address]- 2866 Jul, [facility] [address] [id number], [place] [address]- [address] Jul, [facility] [address] [facility] [id number], [place] [address]- 0746 Jul, [facility] [address] [facility] [id number], [place] [address]- 1836 Jun, [facility] [address] [facility] [id number], [place] [address]- 9766 Jun, [facility] [address] [facility] [id number], [place] [address]- 9796 Jun, [facility] [address] [facility] [id number], [place] [address]- [address]16 May, [facility] [address] [facility] [id number], [place] [address]- 5516 May, [facility] [address] [facility] [id number], [place] [address]- 8286 May, [facility] [address] [facility] [id number], [place] [address]- 8806 Mar, [facility] [address] [facility] [id number], [place] [address]- [address] Mar, IMMUNIZATIONS No Known Immunizations SOCIAL HISTORY Never Assessed REASON FOR VISIT Dental Establish Care PLAN OF CARE Activity Details Follow Up UBALDO Reason:SRP/ROLA VITAL SIGNS Heart Rate 62 bpm 2017-06-16 Blood pressure systolic 119 mmHg 2017-06-16 Blood pressure diastolic 60 mmHg 2017-06-16 MEDICATIONS Medication Instructions Dosage Frequency Start Date End Date Duration Status Metformin HCl 500 mg Orally Twice a day 1 tablet with meals 12h 25 May, 2017 30 day(s) Active Tylenol Active RESULTS No Results PROCEDURES Procedure Date Ordered Result Body Site LTD ORAL EVALUATION - PROBLEM FOCUS Jun 16, 2017 INTRAORL-PERIAPICAL 1 FILM [id number] Jun 16, 2017 Periodontal scaling and root Jun 16, 2017 Periodontal scaling and root Jun 16, 2017 BITEWINGS - THREE FILMS Jun 16, 2017 INTRAORL-PERIAPICAL EA ADD FILM Jun 16, 2017 INTRAORL-PERIAPICAL EA ADD FILM Jun 16, 2017 PANORAMIC FILM SEE ALSO CODE [id number] Jun 16, 2017 INTRAORL-PERIAPICAL EA ADD FILM Jun 16, 2017 INSTRUCTIONS MEDICATIONS ADMINISTERED No Known Medications MEDICAL (GENERAL) HISTORY Type Description Date Medical History Cervical high risk HPV (human papillomavirus) test positive Hospitalization History child
--- OUTSIDE RECORDS SUMMARY | 2018-01-25 08:29 | XMS REPORT ---
Author MCKENNA [facility] eClinicalWorks Address Unknown Phone Unavailable Care Team Providers Care Dredge Runner Name Role Phone MCKENNA MENARD CP Unavailable Allergies No Known Allergies Problems Problem Type Condition Code Onset Dates Condition Status Problem Supervision of other normal V22.1 Active Assessment Encounter for supervision of other normal , second trimester Z34.82 Active Problem History of insulin resistance V12.29 Active Assessment Encounter for supervision of normal intrauterine in multigravida, antepartum Z34.90 Active Medications Medication Code System Code Instructions Start Date End Date Status Dosage Promethazine HCl [facility] [address]-17 25 MG Orally 3 times a day Mar 25, 2015 Apr 14, 2015 1 tablet as needed Procedures Procedure Coding System Code Date Office Visit, Est Pt., Level 3 CPT-4 37911 Mar 25, 2015 URINE-NO MICRO CPT-4 90969 Mar 25, 2015 Vital Signs Date/Time: Mar 25, 2015 Temperature 97.0 F Weight 184.0 lbs Height 59 in BMI 37.163 Index Blood Pressure Diastolic 70 mmHg Blood Pressure Systolic 118 mmHg Results No Known Results Summary Purpose eClinicalWorks Submission
--- OUTSIDE RECORDS SUMMARY | 2018-01-25 08:29 | XMS REPORT ---
Author Author LEONARD NEGRETE Organization eClinicalWorks Address Unknown Phone Unavailable Care Team Providers Care Cement Finisher Name Role Phone LEONARD NEGRETE CP Unavailable Allergies, Adverse Reactions, Alerts Substance Reaction Event Type N.K.D.A. Info Not Available Non Drug Allergy Problems Problem Type Condition Code Onset Dates Condition Status Problem Irregular periods N92.6 Active Problem Excessive thirst R63.1 Active Problem Atypical glandular cells of undetermined significance (TIMBO) on cervical Pap smear R87.619 Active Problem Cervical high risk HPV (human papillomavirus) test positive R87.810 Active Assessment Atypical glandular cells of undetermined significance (TIMBO) on cervical Pap smear R87.619 Active Medications No Known Medications Procedures Procedure Coding System Code Date ENDOCERV CURETTAGE W/SCOPE CPT-4 95845 Mar 03, 2016 BIOPSY OF UTERUS LINING CPT-4 60916 Mar 03, 2016 URINE TEST CPT-4 84933 Mar 03, 2016 Vital Signs Date/Time: Mar 03, 2016 Cardiac Monitoring Heart Rate 80 bpm Weight 188.0 lbs Height 59 in BMI 37.97 Index Blood Pressure Diastolic 70 mmHg Blood Pressure Systolic 118 mmHg Results Name Result Date Reference Range Unit Abnormality Flag ENDOMETRIAL BIOPSY PDF Report ----PDF Report1 [facility] [id number] TEST, URINE (IN HOUSE) ----RESULTS Negative [id number] ----Lot # [id number] ----Control + [id number] ----Exp date [id number] COLP W/ ECC Summary Purpose eClinicalWorks Submission
[2018-01-25] MEDS: LACTATED RINGERS 1,000 ML IV PRN ×2 (08:30→10:14)
--- OUTSIDE RECORDS SUMMARY | 2018-01-25 08:30 | XMS REPORT ---
Author Author LEONARD NEGRETE [facility] eClinicalWorks Address Unknown Phone Unavailable Care Team Providers Care Window Draper Name Role Phone LEONARD NEGRETE CP Unavailable Allergies, Adverse Reactions, Alerts Substance Reaction Event Type N.K.D.A. Info Not Available Non Drug Allergy Problems Problem Type Condition Code Onset Dates Condition Status Assessment Hematemesis K92.0 Active Assessment Nausea and vomiting during O21.9 Active Assessment Encounter for supervision of other normal , second trimester Z34.82 Active Assessment 20 weeks gestation of Z3A.20 Active Medications Medication Code System Code Instructions Start Date End Date Status Dosage Diclegis [facility] [address]-18 10-10 MG Orally Once a day Apr 14, 2015 2 tablets at bedtime on an empty stomach Procedures Procedure Coding System Code Date URINALYSIS, AUTO, W/O SCOPE CPT-4 31536 Apr 14, 2015 Office Visit, Est Pt., Level 3 CPT-4 41864 Apr 14, 2015 URINE-NO MICRO CPT-4 56235 Apr 14, 2015 Vital Signs Date/Time: Apr 14, 2015 Temperature 98.0 F Weight 185.8 lbs Height 59 in BMI 37.52 Index Blood Pressure Diastolic 68 mmHg Blood Pressure Systolic 100 mmHg Cardiac Monitoring Heart Rate 80 bpm Results Name Result Date Reference Range Unit Abnormality Flag UA OB DIP (IN HOUSE) ----Glucose negative [id number] ----Protein 1+ [id number] Summary Purpose eClinicalWorks Submission
--- OUTSIDE RECORDS SUMMARY | 2018-01-25 08:30 | XMS REPORT ---
Author Author CADEN LEONARD [facility] Address [address] [place] [address] Care Team Providers Care Compliance Vice President Name Role Phone TRACIE NEGRETEHANY Unavailable PROBLEMS Type Condition ICD9-CM Code DGQ92-KS Code Onset Dates Condition Status SNOMED Code Problem Irregular menstrual cycle N92.6 Active 57683735 Problem Polycystic ovarian syndrome E28.2 Active 66978572 Problem GERD without esophagitis K21.9 Active 033352377 Problem Atypical glandular cells of undetermined significance (TIMBO) on cervical Pap smear R87.619 Active 127849673 ALLERGIES No Known Allergies ENCOUNTERS Encounter Location Date Diagnosis [place] [id number] [place] [address] 93648- 2501 Sep, [facility] [id number] [place] [address] [id number] Jun, Dental examination Z01.20 [place] [id number] [place] [address] 77716- 4107 Jun, Dental examination Z01.20 [place] [id number] [place] [address] 73217- 8384 May, Polycystic ovarian syndrome E28.2 [facility] [id number] [place] [address] 28262- 9844 May, Right upper quadrant pain R10.11 [place] [id number] [place] [address] 59711- 4813 May, [facility] [id number] [place] [address] 97418- 0815 May, Irregular menstrual cycle N92.6 ; Dyspepsia R10.13 and Right upper quadrant pain R10.11 [place] [id number] [place] [address] 73406- 1066 Nov, [place] [address] 27395- 7977 Nov, Muscle spasm of back M62.830 and GERD without esophagitis K21.9 [place] [id number] [place] [address] 02809- 4779 Mar, Atypical glandular cells of undetermined significance (TIMBO ) on cervical Pap smear R87.619 [place] [address] 25361- 2106 Jan, Chronic idiopathic constipation K59.04 ; Cervical high risk HPV (human papillomavirus) test positive R87.810 ; Irregular periods N92.6 ; Nausea R11.0 ; Well woman exam Z01.419 ; Excessive thirst R63.1 and Hematochezia K92.1 [place] [address] 10391- 2875 Sep, Routine follow-up Z39.2 ; Encounter for Depo- Provera contraception Z30.42 ; Cervical high risk HPV (human papillomavirus) test positive R87.810 and control counseling Z30.9 [place] [id number] [place] [address] 41605- 6049 20 Jul, 2015 Encounter for supervision of other normal , third trimester Z34.83 [place] [id number] [place] [address] 89284- 7624 Jul, Encounter for supervision of other normal , third trimester Z34.83 [place] [id number] [place] [address] 19817- 6001 Jul, Encounter for supervision of other normal , third trimester Z34.83 [place] [id number] [place] [address] 19695- 0469 Jul, [place] [id number] [place] [address] 45304- 9413 Jun, Encounter for supervision of other normal , second trimester Z34.82 [place] [address] [address] 6681 Jun, 34 weeks gestation of Z3A.34 [place] [address] [address]- 4543 Jun, Encounter for supervision of other normal , third trimester Z34.83 [place] [id number] [place] [address] 14667- 6150 24 Jun, 2015 Z33.1 ; Urinary tract infection N39.0 and Encounter for immunization Z23 [place] [id number] [place] [address] 12036- 0979 10 Jun, 2015 Encounter for supervision of other normal , second trimester Z34.82 [place] [id number] [place] [address] 62587- 7744 May, Encounter for supervision of other normal , second trimester Z34.82 [place] [address] [place] [address] 86671- 9112 Mar, 21 weeks gestation of Z3A.21 [place] [id number] [place] [address] 60527- 4732 Mar, [place] [id number] [place] [address] 12100- 2618 Mar, [place] [address] [place] [address] 50529- 1336 Mar, Encounter for supervision of other normal , second trimester Z34.82 ; Hematemesis K92.0 ; Nausea and vomiting during O21.9 and 20 weeks gestation of Z3A.20 [place] [address] [place] [address] 40283- 5621 Mar, Encounter for supervision of other normal , second trimester Z34.82 and Encounter for supervision of normal intrauterine in multigravida, antepartum Z34.90 [place] [id number] [place] [address] 80537- 4933 28 Jan, 2015 Encounter for supervision of other normal , second trimester Z34.82 [facility] [id number] [place] [address] 14840- 7167 28 Dec, 2014 History of insulin resistance V12.29 and Supervision of other normal V22.1 [facility] [id number] [place] [address] 13395- 0791 21 Dec, 2014 test performed, confirmed V72.42 [facility] [id number] [place] [address] 03714- 9403 15 Nov, 2014 Urinary frequency 788.41 ; Vaginal discharge 623.5 ; Pelvic pain in female 625.9 ; Cervical motion tenderness 625.8 and Cervicitis 616.0 [facility] [id number] [place] [address] 57840- 6438 14 Jul, 2014 [facility] [address] 13972- 8965 Jul, [facility] [id number] [place] [address] 21179- 0112 Jun, [facility] [id number] [place] [address] 67130- 2099 Jun, [facility] [id number] [place] [address] 97253- 3223 Jun, [facility] [id number] [place] [address] 61329- 4977 Jun, [facility] [id number] [place] [address] 63295- 5705 Jun, [facility] [id number] [place] [address] 67879- 7743 Jun, [facility] [id number] [place] [address] 99003- 5209 Jun, [facility] [place] [facility] [address] [id number] [place] [address]- 3605 11 Jun, 2014 [facility] [address] [id number] [place] [address]- 7819 Jun, 2014 [facility] [place] [facility] [address] [id number] [place] [address]- 7146 10 Jun, 2014 [facility] [place] [facility] [address] [id number] [place] [address]- 1306 Jun, 2014 [facility] [place] [facility] [address] [id number] [place] [address]- 9702 Jun, 2014 [facility] [place] [facility] [address] [id number] [place] [address]- 4870 August, [facility] [place] [facility] [address] [id number] [place] [address]- 6424 August, [facility] [place] [facility] [address] [id number] [place] [address]- 1732 August, [facility] [place] [facility] [address] [id number] [place] [address]- 7731 August, [facility] [place] [facility] [address] [id number] [place] [address]- 0689 August, [facility] [place] [facility] [address] [id number] [place] [address]- 9211 Nov, [facility] [place] [facility] [address] [id number] [place] [address]- 0378 Nov, [facility] [place] [facility] [address] [id number] [place] [address]- 4574 Oct, [facility] [place] [facility] [address] [id number] [place] [address]- 6296 Oct, [facility] [place] [facility] [address] [id number] [place] [address]- 2546 Oct, [facility] [place] [facility] [address] [id number] [place] [address]- 9697 Oct, [facility] [address] [facility] [id number] [place] [address]- 7240 Oct, [facility] [address] [facility] [id number] [place] [address]- 8876 Sep, [facility] [address] [facility] [id number] [place] [address]- 1886 Sep, [facility] [address] [facility] [id number] [place] [address]- 3596 August, [facility] [address] [facility] [id number] [place] [address]- 1222 Jul, [facility] [address] [facility] [id number] [place] [address]- 4695 Jul, [facility] [address] [place] [address]- 0610 Jul, [facility] [address] [address]- 5131 Jun, [facility] [id number] [place] [address]- 9299 Jun, [facility] [address] [address]- 5746 Jun, [facility] [id number] [address]- 1066 May, [facility] [address] [facility] [id number] [address]- 8445 May, [facility] [address] [facility] [id number] [address]- 7121 May, [facility] [id number] [address]- 4026 Mar, [facility] [id number] [address]- 6332 Mar, IMMUNIZATIONS No Known Immunizations SOCIAL HISTORY Never Assessed REASON FOR VISIT irregular periods, -- kyler montes de oca, patient states she is here to follow up on her labs done in 05/05 2017 and to be check about her irregular periods PLAN OF CARE Activity Details Follow Up 3 Months Reason:PCOS VITAL SIGNS Height 59 in 2017-05-25 Weight 197.0 lbs 2017-05-25 Temperature 98.7 degrees Fahrenheit 2017-05-25 Heart Rate 80 bpm 2017-05-25 Respiratory Rate 20 2017-05-25 BMI 39.78 kg/m2 2017-05-25 Blood pressure systolic 130 mmHg 2017-05-25 Blood pressure diastolic 78 mmHg 2017-05-25 MEDICATIONS Medication Instructions Dosage Frequency Start Date End Date Duration Status Metformin HCl 500 mg Orally Twice a day 1 tablet with meals 12h May, 30 day(s) Active RESULTS Name Result Date Reference Range Ultrasound : Pelvic, COMPLETE (REFLEX CPT-20615) 2017-05-30 PROCEDURES No Known procedures INSTRUCTIONS MEDICATIONS ADMINISTERED No Known Medications MEDICAL (GENERAL) HISTORY Type Description Date Medical History Cervical high risk HPV (human papillomavirus) test positive Hospitalization History child
--- OUTSIDE RECORDS SUMMARY | 2018-01-25 08:30 | XMS REPORT ---
Author Author ALLYSON KIDD Organization [facility] Address [address] [place] [address] Care Team Providers Care [employer] Professional Name Role Phone ALLYSON KIDD Unavailable PROBLEMS Type Condition ICD9-CM Code XRH82-NH Code Onset Dates Condition Status SNOMED Code Problem Irregular menstrual cycle N92.6 Active 39512312 Problem Polycystic ovarian syndrome E28.2 Active 51728426 Problem GERD without esophagitis K21.9 Active 859182623 Problem Atypical glandular cells of undetermined significance (TIMBO) on cervical Pap smear R87.619 Active 678327611 ALLERGIES No Information ENCOUNTERS Encounter Location Date Diagnosis [facility] [address] [place] [address] [id number] 16 Jun, 2017 Dental examination Z01.20 [facility] [id number] [place] [address] 00701- 2578 Jun, Dental examination Z01.20 [facility] [id number] [place] [address] 16159- 4511 May, Polycystic ovarian syndrome E28.2 [facility] [address] [place] [address] 26309- 1426 May, Right upper quadrant pain R10.11 [facility] [id number] [place] [address] 17850- 6060 May, [facility] [id number] [place] [address] 58175- 5759 May, Irregular menstrual cycle N92.6 ; Dyspepsia R10.13 and Right upper quadrant pain R10.11 [facility] [id number] [place] [address] 16643- 4614 Nov, [facility] [address] [place] [address]- 4691 Nov, Muscle spasm of back M62.830 and GERD without esophagitis K21.9 [place] [address] 82063- 9539 Mar, Atypical glandular cells of undetermined significance (TIMBO ) on cervical Pap smear R87.619 [place] [address] 35341- 8126 Jan, Chronic idiopathic constipation K59.04 ; Cervical high risk HPV (human papillomavirus) test positive R87.810 ; Irregular periods N92.6 ; Nausea R11.0 ; Well woman exam Z01.419 ; Excessive thirst R63.1 and Hematochezia K92.1 [place] [address] 15523- 4364 Sep, Routine follow-up Z39.2 ; Encounter for Depo- Provera contraception Z30.42 ; Cervical high risk HPV (human papillomavirus) test positive R87.810 and control counseling Z30.9 [place] [address] 75671- 7333 20 Jul, 2015 Encounter for supervision of other normal , third trimester Z34.83 [place] [id number] [place] [address] 19440- 5703 Jul, Encounter for supervision of other normal , third trimester Z34.83 [place] [id number] [place] [address] 63130- 2876 Jul, Encounter for supervision of other normal , third trimester Z34.83 [place] [address] 12969- 8578 Jul, [place] [address] 47446- 2845 Jun, Encounter for supervision of other normal , second trimester Z34.82 [place] [address] 28058- 7876 Jun, 34 weeks gestation of Z3A.34 [place] [address] [place] [address] 27864- 0410 Jun, Encounter for supervision of other normal , third trimester Z34.83 [place] [id number] [place] [address] 04936- 0807 24 Jun, 2015 Z33.1 ; Urinary tract infection N39.0 and Encounter for immunization Z23 [place] [id number] [place] [address] 74027- 3025 10 Jun, 2015 Encounter for supervision of other normal , second trimester Z34.82 [place] [id number] [place] [address] 42877- 8328 May, Encounter for supervision of other normal , second trimester Z34.82 [place] [id number] [place] [address] 90080- 0963 Mar, 21 weeks gestation of Z3A.21 [place] [id number] [place] [address] 91655- 3206 Mar, [place] [id number] [place] [address] 60985- 2185 Mar, [place] [id number] [place] [address] 77532- 4141 Mar, Encounter for supervision of other normal , second trimester Z34.82 ; Hematemesis K92.0 ; Nausea and vomiting during O21.9 and 20 weeks gestation of Z3A.20 [place] [address] [place] [address] 78285- 3788 Mar, Encounter for supervision of other normal , second trimester Z34.82 and Encounter for supervision of normal intrauterine in multigravida, antepartum Z34.90 [place] [address] [place] [address] 81616- 1846 Jan, Encounter for supervision of other normal , second trimester Z34.82 [facility] [id number] [place] [address] 30644- 9396 28 Dec, 2014 History of insulin resistance V12.29 and Supervision of other normal V22.1 [facility] [id number] [place] [address] 86410- 9899 21 Dec, 2014 test performed, confirmed V72.42 [facility] [id number] [place] [address] 61089- 3057 15 Nov, 2014 Urinary frequency 788.41 ; Vaginal discharge 623.5 ; Pelvic pain in female 625.9 ; Cervical motion tenderness 625.8 and Cervicitis 616.0 [facility] [address] 93620- 0392 14 Jul, 2014 [facility] [address] 03812- 2252 Jul, [facility] [id number] [place] [address] 01899- 1241 Jun, [facility] [id number] [place] [address] 87214- 9205 Jun, [facility] [id number] [place] [address] 37146- 6940 Jun, [facility] [id number] [place] [address] 08340- 5446 Jun, [facility] [id number] [place] [address] 99261- 8381 Jun, [facility] [id number] [place] [address] 22044- 2964 Jun, [facility] [id number] [place] [address] 68094- 4951 Jun, [facility] [id number] [place] [address] 83183- 2771 Jun, [facility] [address] [place] [address]- 6097 10 Jun, 2014 [facility] [address] [id number] [place] [address]- 3385 Jun, 2014 [facility] [place] [facility] [address] [id number] [place] [address]- 6900 Jun, 2014 [facility] [place] [facility] [address] [id number] [place] [address]- 4479 Jun, 2014 [facility] [place] [facility] [address] [id number] [place] [address]- 2394 August, [facility] [address] [id number] [place] [address]- 4049 August, [facility] [address] [id number] [place] [address]- 4641 August, [facility] [address] [id number] [place] [address]- 2340 August, [facility] [address] [id number] [place] [address]- 3337 August, [facility] [place] [facility] [address] [id number] [place] [address]- 5877 Nov, [facility] [address] [id number] [place] [address]- 9300 Nov, [facility] [place] [facility] [address] [id number] [place] [address]- 4883 Oct, [facility] [place] [facility] [address] [id number] [place] [address]- 7191 Oct, [facility] [place] [facility] [address] [id number] [place] [address]- 4032 Oct, [facility] [place] [facility] [address] [id number] [place] [address]- 2546 Oct, [facility] [place] [facility] [address] [id number] [place] [address]- 2655 Oct, [facility] [id number] [address]- 5526 Sep, [facility] [address] [address]- 6936 Sep, [facility] [id number] [address]- 8276 August, [facility] [address] [address]- 4386 Jul, [facility] [address] [address]- 0536 Jul, [facility] [address] [address]- 8476 Jul, [facility] [address] [address]- 9796 Jun, [facility] [address] [address]- 5736 Jun, [facility] [address] [address]- 4616 Jun, [facility] [address] [address]- 8886 May, [facility] [address] [address]- 1186 May, [facility] [id number] [address]- 6456 May, [facility] [id number] [address]- 0796 Mar, [facility] [address] [address]- 9276 Mar, IMMUNIZATIONS No Known Immunizations SOCIAL HISTORY Never Assessed REASON FOR VISIT PLAN OF CARE VITAL SIGNS MEDICATIONS No Known Medications RESULTS No Results PROCEDURES No Known procedures INSTRUCTIONS MEDICATIONS ADMINISTERED No Known Medications MEDICAL (GENERAL) HISTORY Type Description Date Medical History Cervical high risk HPV (human papillomavirus) test positive Hospitalization History child
--- OUTSIDE RECORDS SUMMARY | 2018-01-25 08:30 | XMS REPORT ---
Author Author MCKENNA MENARD Organization [employer] Address Unknown Phone Unavailable Care Team Providers Care Loom Fixer Apprentice Name Role Phone MCKENNA MENARD CP Unavailable Allergies No Known Allergies Problems Problem Type Condition Code Onset Dates Condition Status Assessment Encounter for supervision of other normal , third trimester Z34.83 Active Medications No Known Medications Procedures Procedure Coding System Code Date Office Visit, Est Pt., Level 3 CPT-4 29426 August 19, 2015 URINE-NO MICRO CPT-4 61388 August 19, 2015 Vital Signs Date/Time: August 19, 2015 Temperature 98.0 F Weight 210.0 lbs Height 59 in BMI 42.415 Index Blood Pressure Diastolic 78 mmHg Blood Pressure Systolic 120 mmHg Cardiac Monitoring Heart Rate 72 bpm Results No Known Results Summary Purpose [employer] Submission
--- OUTSIDE RECORDS SUMMARY | 2018-01-25 08:30 | XMS REPORT ---
Author Author LEONARD NEGRETE [facility] [employer] Address Unknown Phone Unavailable Care Team Providers Care Business Support Professional Name Role Phone LEONARD NEGRETE CP Unavailable Allergies No Known Allergies Problems No Known Problems Medications No Known Medications Results No Known Results Summary Purpose [employer] Submission
--- OUTSIDE RECORDS SUMMARY | 2018-01-25 08:30 | XMS REPORT ---
Author Author ALLYSON KIDD [facility] Address [address] [place] [address] Care Team Providers Care Media Intern Name Role Phone ALLYSON KIDD Unavailable PROBLEMS Type Condition ICD9-CM Code [id number] Code Onset Dates Condition Status SNOMED Code Problem Irregular menstrual cycle N92.6 Active 80017625 Problem Polycystic ovarian syndrome E28.2 Active 92549940 Problem GERD without esophagitis K21.9 Active 845714800 Problem Atypical glandular cells of undetermined significance (TIMBO) on cervical Pap smear R87.619 Active 640975006 ALLERGIES No Known Allergies ENCOUNTERS Encounter Location Date Diagnosis [facility] [id number] [place] [address] [id number] 16 Jun, 2017 Dental examination Z01.20 [place] [id number] [place] [address] 43765- 1250 Jun, Dental examination Z01.20 [facility] [id number] [place] [address] 45256- 2620 May, Polycystic ovarian syndrome E28.2 [facility] [id number] [place] [address] 27896- 6672 May, Right upper quadrant pain R10.11 [facility] [id number] [place] [address] 26617- 5574 May, Irregular menstrual cycle N92.6 ; Dyspepsia R10.13 and Right upper quadrant pain R10.11 [facility] [id number] [place] [address] 64084- 5572 May, [place] [id number] [place] [address] 61998- 8062 Nov, [facility] [address] [address]- 5118 Nov, Muscle spasm of back M62.830 and GERD without esophagitis K21.9 [place] [address] 72697- 5059 Mar, Atypical glandular cells of undetermined significance (TIMBO ) on cervical Pap smear R87.619 [place] [address] 71058- 5928 Jan, Chronic idiopathic constipation K59.04 ; Cervical high risk HPV (human papillomavirus) test positive R87.810 ; Irregular periods N92.6 ; Nausea R11.0 ; Well woman exam Z01.419 ; Excessive thirst R63.1 and Hematochezia K92.1 [place] [address] 93921- 8846 30 Sep, 2015 Routine follow-up Z39.2 ; Encounter for Depo- Provera contraception Z30.42 ; Cervical high risk HPV (human papillomavirus) test positive R87.810 and control counseling Z30.9 [place] [address] 42871- 5577 20 Jul, 2015 Encounter for supervision of other normal , third trimester Z34.83 [place] [address] 57782- 6211 Jul, Encounter for supervision of other normal , third trimester Z34.83 [place] [address] 88252- 7867 Jul, Encounter for supervision of other normal , third trimester Z34.83 [place] [address] 03150- 0913 Jul, [place] [address] 39273- 5243 Jun, Encounter for supervision of other normal , second trimester Z34.82 [place] [address] 39371- 2394 Jun, 34 weeks gestation of Z3A.34 [place] [id number] [place] [address] 64578- 5506 Jun, Encounter for supervision of other normal , third trimester Z34.83 [place] [id number] [place] [address] 49345- 9792 24 Jun, 2015 Z33.1 ; Urinary tract infection N39.0 and Encounter for immunization Z23 [place] [id number] [place] [address] 16181- 8052 10 Jun, 2015 Encounter for supervision of other normal , second trimester Z34.82 [place] [address] 59064- 0012 May, Encounter for supervision of other normal , second trimester Z34.82 [place] [id number] [place] [address] 27350- 5090 Mar, 21 weeks gestation of Z3A.21 [place] [id number] [place] [address] 38449- 3648 Mar, [place] [id number] [place] [address] 44148- 2480 Mar, [place] [id number] [place] [address] 33130- 0799 Mar, Encounter for supervision of other normal , second trimester Z34.82 ; Hematemesis K92.0 ; Nausea and vomiting during O21.9 and 20 weeks gestation of Z3A.20 [place] [id number] [place] [address] 40857- 3040 Mar, Encounter for supervision of other normal , second trimester Z34.82 and Encounter for supervision of normal intrauterine in multigravida, antepartum Z34.90 [place] [id number] [place] [address] 92323- 8654 Jan, Encounter for supervision of other normal , second trimester Z34.82 [facility] [id number] [place] [address] 92649- 8483 28 Dec, 2014 History of insulin resistance V12.29 and Supervision of other normal V22.1 [facility] [id number] [place] [address] 19547- 0181 21 Dec, 2014 test performed, confirmed V72.42 [facility] [id number] [place] [address] 10320- 9375 15 Nov, 2014 Urinary frequency 788.41 ; Vaginal discharge 623.5 ; Pelvic pain in female 625.9 ; Cervical motion tenderness 625.8 and Cervicitis 616.0 [facility] [id number] [place] [address] 53792- 2382 14 Jul, 2014 [facility] [id number] [place] [address] 63669- 0377 Jul, [facility] [id number] [place] [address] 83169- 1827 Jun, [facility] [id number] [place] [address] 59983- 3120 Jun, [facility] [id number] [place] [address] 73887- 0366 Jun, [facility] [id number] [place] [address] 59685- 2262 Jun, [facility] [id number] [place] [address] 14825- 2912 Jun, [facility] [id number] [place] [address] 96636- 5174 Jun, [facility] [id number] [place] [address] 28819- 0970 Jun, [facility] [id number] [place] [address] 78299- 4206 Jun, [facility] [address] [place] [address]- 1316 10 Jun, 2014 [facility] [address] [id number] [place] [address]- 3753 Jun, 2014 [facility] [place] [facility] [address] [id number] [place] [address]- 3066 Jun, 2014 [facility] [address] [id number] [place] [address]- 6536 Jun, 2014 [facility] [place] [facility] [address] [id number] [place] [address]- 6950 August, [facility] [address] [id number] [place] [address]- 3415 August, [facility] [address] [id number] [place] [address]- 5112 August, [facility] [address] [id number] [place] [address]- 5258 August, [facility] [address] [id number] [place] [address]- 7396 August, [facility] [place] [facility] [address] [id number] [place] [address]- 5555 Nov, [facility] [address] [id number] [place] [address]- 4819 Nov, [facility] [place] [facility] [address] [id number] [place] [address]- 4877 Oct, [facility] [place] [facility] [address] [id number] [place] [address]- 7207 Oct, [facility] [place] [facility] [address] [id number] [place] [address]- 1689 Oct, [facility] [place] [facility] [address] [id number] [place] [address]- 2546 Oct, [facility] [place] [facility] [address] [id number] [place] [address]- 2786 Oct, [facility] [id number] [address]- 6622 Sep, [facility] [address] [address]- 1246 Sep, [facility] [address] [address]- 2106 August, [facility] [address] [address]- 6906 Jul, [facility] [address] [facility] [id number] 4545 Jul, [facility] [address], [place] [address]- 3216 Jul, [facility] [address], [place] [address]- 4196 Jun, [facility] [address], [place] [address]- 0892 Jun, [facility] [address], [place] [address]- 2266 Jun, [facility] [id number], [place] [address]- 6965 May, [facility] [address], [place] [address]- 0776 May, [facility] [id number], [place] [address]- 6246 May, [facility] [id number], [place] [address]- 6295 Mar, [facility] [address], [place] [address]- 2226 Mar, IMMUNIZATIONS No Known Immunizations SOCIAL HISTORY Never Assessed REASON FOR VISIT left arm pain with numbness , back pain , neck pain x 2 weeks -- kyler montes de oca PLAN OF CARE Activity Details Follow Up prn Reason: VITAL SIGNS Height 59 in 2016-12-29 Weight 190 lbs 2016-12-29 Temperature 98.0 degrees Fahrenheit 2016-12-29 Heart Rate 78 bpm 2016-12-29 Respiratory Rate 18 2016-12-29 BMI 38.37 kg/m2 2016-12-29 Blood pressure systolic 120 mmHg 2016-12-29 Blood pressure diastolic 78 mmHg 2016-12-29 MEDICATIONS Medication Instructions Dosage Frequency Start Date End Date Duration Status Cyclobenzaprine HCl 5 mg Orally at bedtime 1 tablet as needed Nov, Active Omeprazole 20 mg Orally Once a day 1 capsule 24h Nov, 30 day(s ) Active RESULTS No Results PROCEDURES No Known procedures INSTRUCTIONS MEDICATIONS ADMINISTERED No Known Medications MEDICAL (GENERAL) HISTORY Type Description Date Medical History Cervical high risk HPV (human papillomavirus) test positive Hospitalization History child
--- OUTSIDE RECORDS SUMMARY | 2018-01-25 08:30 | XMS REPORT ---
Author Author LEONARD NEGRETE [facility] eClinicalWorks Address Unknown Phone Unavailable Care Team Providers Care Aging Box Hand Name Role Phone LEONARD NEGRETE Unavailable Allergies No Known Allergies Problems No Known Problems Medications Medication Code System Code Instructions Start Date End Date Status Dosage Prevacid [facility] [address]-08 15 MG Orally Once a day Apr 15, 2015 1 capsule Results No Known Results Summary Purpose eClinicalWorks Submission
--- OUTSIDE RECORDS SUMMARY | 2018-01-25 08:30 | XMS REPORT ---
Author Author VADIM FONG [facility] Address [address] [place] [address] Care Team Providers Care Solderer Production Line Name Role Phone VADIM FONG Unavailable PROBLEMS Type Condition ICD9-CM Code [id number] Code Onset Dates Condition Status SNOMED Code Problem Irregular menstrual cycle N92.6 Active 88321353 Problem Polycystic ovarian syndrome E28.2 Active 52986030 Problem GERD without esophagitis K21.9 Active 130265369 Problem Atypical glandular cells of undetermined significance (TIMBO) on cervical Pap smear R87.619 Active 866194160 ALLERGIES No Information ENCOUNTERS Encounter Location Date Diagnosis [address] [id number] [place] [address] 45055- 8443 Sep, [facility] [id number] [place] [address] [id number] Jun, Dental examination Z01.20 [place] [id number] [place] [address] 79763- 1762 Jun, Dental examination Z01.20 [place] [id number] [place] [address] 45285- 2621 May, Polycystic ovarian syndrome E28.2 [place] [id number] [place] [address] 56843- 0260 May, Right upper quadrant pain R10.11 [place] [address] 43686- 3081 May, [place] [id number] [place] [address] 51332- 3937 May, Irregular menstrual cycle N92.6 ; Dyspepsia R10.13 and Right upper quadrant pain R10.11 [place] [id number] [place] [address] 87396- 8615 Nov, [place] [address] 99917- 2286 Nov, Muscle spasm of back M62.830 and GERD without esophagitis K21.9 [place] [address] 27889- 8829 Mar, Atypical glandular cells of undetermined significance (TIMBO ) on cervical Pap smear R87.619 [place] [address] 02872- 0238 Jan, Chronic idiopathic constipation K59.04 ; Cervical high risk HPV (human papillomavirus) test positive R87.810 ; Irregular periods N92.6 ; Nausea R11.0 ; Well woman exam Z01.419 ; Excessive thirst R63.1 and Hematochezia K92.1 [place] [address] 71496- 8898 Sep, Routine follow-up Z39.2 ; Encounter for Depo- Provera contraception Z30.42 ; Cervical high risk HPV (human papillomavirus) test positive R87.810 and control counseling Z30.9 [place] [id number] [place] [address] 04392- 3926 20 Jul, 2015 Encounter for supervision of other normal , third trimester Z34.83 [place] [id number] [place] [address] 19439- 5286 Jul, Encounter for supervision of other normal , third trimester Z34.83 [place] [id number] [place] [address] 60614- 7302 Jul, Encounter for supervision of other normal , third trimester Z34.83 [place] [id number] [place] [address] 30018- 4047 Jul, [place] [id number] [place] [address] 97762- 8589 Jun, Encounter for supervision of other normal , second trimester Z34.82 [place] [address] [address]- 5056 Jun, 34 weeks gestation of Z3A.34 [place] [address] [address]- 1840 02 Jun, 2015 Encounter for supervision of other normal , third trimester Z34.83 [place] [id number] [place] [address] 14352- 3650 24 Jun, 2015 Z33.1 ; Urinary tract infection N39.0 and Encounter for immunization Z23 [place] [id number] [place] [address] 13289- 4838 10 Jun, 2015 Encounter for supervision of other normal , second trimester Z34.82 [place] [id number] [address]- 1842 May, Encounter for supervision of other normal , second trimester Z34.82 [place] [address] [place] [address] 32649- 7700 Mar, 21 weeks gestation of Z3A.21 [place] [address] [place] [address] 35627- 9764 Mar, [place] [id number] [place] [address] 99473- 2488 Mar, [place] [address] [place] [address] 64383- 9138 Mar, Encounter for supervision of other normal , second trimester Z34.82 ; Hematemesis K92.0 ; Nausea and vomiting during O21.9 and 20 weeks gestation of Z3A.20 [address] [address] [place] [address] 06540- 9862 Mar, Encounter for supervision of other normal , second trimester Z34.82 and Encounter for supervision of normal intrauterine in multigravida, antepartum Z34.90 [place] [id number] [place] [address] 57893- 1834 28 Jan, 2015 Encounter for supervision of other normal , second trimester Z34.82 [facility] [id number] [place] [address] 13007- 6209 28 Dec, 2014 History of insulin resistance V12.29 and Supervision of other normal V22.1 [facility] [id number] [place] [address] 03988- 6767 21 Dec, 2014 test performed, confirmed V72.42 [facility] [id number] [place] [address] 37812- 6022 15 Nov, 2014 Urinary frequency 788.41 ; Vaginal discharge 623.5 ; Pelvic pain in female 625.9 ; Cervical motion tenderness 625.8 and Cervicitis 616.0 [facility] [id number] [place] [address] 02724- 4036 14 Jul, 2014 [facility] [id number] [place] [address] 69576- 3887 Jul, [facility] [id number] [place] [address] 37281- 2434 Jun, [facility] [id number] [place] [address] 11560- 2144 Jun, [facility] [address] [place] [address] 38428- 5626 Jun, [facility] [id number] [place] [address] 01517- 3061 Jun, [facility] [id number] [place] [address] 90388- 8131 Jun, [facility] [id number] [place] [address] 27019- 5290 Jun, [facility] [id number] [place] [address] 33561- 3768 Jun, [facility] [place] [facility] [address] [id number] [place] [address]- 4849 11 Jun, 2014 [facility] [place] [facility] [address] [id number] [place] [address]- 1427 Jun, 2014 [facility] [place] [facility] [address] [id number] [place] [address]- 7521 10 Jun, 2014 [facility] [place] [facility] [address] [id number] [place] [address]- 7613 Jun, 2014 [facility] [place] [facility] [address] [id number] [place] [address]- 0853 Jun, 2014 [facility] [place] [facility] [address] [id number] [place] [address]- 3840 August, [facility] [place] [facility] [address] [id number] [place] [address]- 5734 August, [facility] [place] [facility] [address] [id number] [place] [address]- 5251 August, [facility] [place] [facility] [address] [id number] [place] [address]- 5148 August, [facility] [place] [facility] [address] [id number] [place] [address]- 4563 August, [facility] [place] [facility] [address] [id number] [place] [address]- 4757 Nov, [facility] [place] [facility] [address] [id number] [place] [address]- 6321 Nov, [facility] [place] [facility] [address] [id number] [place] [address]- 3908 Oct, [facility] [place] [facility] [address] [id number] [place] [address]- 3416 Oct, [facility] [place] [facility] [address] [id number] [place] [address]- 2546 Oct, [facility] [place] [facility] [address] [id number] [place] [address]- 0037 Oct, [facility] [address] [facility] [id number] [place] [address]- 9664 Oct, [facility] [address] [facility] [id number] [address]- 9946 Sep, [facility] [address] [id number] [place] [address]- 3376 Sep, [facility] [address] [facility] [id number] [address]- 2269 August, [facility] [address] [facility] [id number] [place] [address]- 5071 Jul, [facility] [address] [id number] [place] [address]- 7610 Jul, [facility] [address] [place] [address]- 5232 Jul, [facility] [address] [id number] [address]- 5087 Jun, [facility] [address] [id number] [address]- 0438 Jun, [facility] [address] [id number] [address]- 3616 Jun, [facility] [address] [id number] [address]- 2637 May, [facility] [address] [id number] [address]- 7225 May, [facility] [address] [facility] [id number] [place] [address]- 7431 May, [facility] [address] [id number] [address]- 2767 Mar, [facility] [address] [id number] [address]- 9731 Mar, IMMUNIZATIONS No Known Immunizations SOCIAL HISTORY Never Assessed REASON FOR VISIT HIDA scan PLAN OF CARE VITAL SIGNS MEDICATIONS Unknown Medications RESULTS Name Result Date Reference Range HIDA Scan 2017-06-02 PROCEDURES No Known procedures INSTRUCTIONS MEDICATIONS ADMINISTERED No Known Medications MEDICAL (GENERAL) HISTORY Type Description Date Medical History Cervical high risk HPV (human papillomavirus) test positive Hospitalization History child
--- OUTSIDE RECORDS SUMMARY | 2018-01-25 08:31 | XMS REPORT ---
Author MCKENNA Archer [facility] eClinicalWorks Address Unknown Phone Unavailable Care Team Providers Care Biometric Screener Name Role Phone MCKENNA MENARD CP Unavailable Allergies No Known Allergies Problems Problem Type Condition Code Onset Dates Condition Status Assessment Encounter for supervision of other normal , third trimester Z34.83 Active Medications No Known Medications Procedures Procedure Coding System Code Date Office Visit, Est Pt., Level 3 CPT-4 18180 August 12, 2015 URINE-NO MICRO CPT-4 01544 August 12, 2015 Vital Signs Date/Time: August 12, 2015 Temperature 98.0 F Weight 207.4 lbs Height 59 in BMI 41.89 Index Blood Pressure Diastolic 80 mmHg Blood Pressure Systolic 138 mmHg Cardiac Monitoring Heart Rate 80 bpm Results Name Result Date Reference Range Unit Abnormality Flag UA OB DIP (IN HOUSE) ----Glucose neg [id number] ----Protein 1+ [id number] Summary Purpose eClinicalWorks Submission
--- OUTSIDE RECORDS SUMMARY | 2018-01-25 08:31 | XMS REPORT ---
Author MCKENNA Archer [facility] eClinicalWorks Address Unknown Phone Unavailable Care Team Providers Care Rope Laying Machine Operator Name Role Phone MCKENNA MENARD CP Unavailable Allergies, Adverse Reactions, Alerts Substance Reaction Event Type N.K.D.A. Info Not Available Non Drug Allergy Problems Problem Type Condition Code Onset Dates Condition Status Assessment Encounter for supervision of other normal , third trimester Z34.83 Active Medications No Known Medications Procedures Procedure Coding System Code Date Office Visit, Est Pt., Level 3 CPT-4 78596 August 05, 2015 URINE-NO MICRO CPT-4 15184 August 05, 2015 Vital Signs Date/Time: August 05, 2015 Temperature 98.6 F Weight 204.1 lbs Height 59 in BMI 41.223 Index Blood Pressure Diastolic 70 mmHg Blood Pressure Systolic 122 mmHg Cardiac Monitoring Heart Rate 84 bpm Results Name Result Date Reference Range Unit Abnormality Flag UA OB DIP (IN HOUSE) ----Glucose negative [id number] ----Protein 1+ [id number] Summary Purpose eClinicalWorks Submission
--- OUTSIDE RECORDS SUMMARY | 2018-01-25 08:31 | XMS REPORT ---
Author Author MCKENNA MENARD Organization [employer] Address Unknown Phone Unavailable Care Team Providers Care Drum Tender Name Role Phone MCKENNA MENARD CP Unavailable Allergies No Known Allergies Problems Problem Type Condition Code Onset Dates Condition Status Assessment 21 weeks gestation of Z3A.21 Active Medications No Known Medications Procedures Procedure Coding System Code Date Office Visit, Est Pt., Level 3 CPT-4 93920 Apr 22, 2015 URINE-NO MICRO CPT-4 03098 Apr 22, 2015 Vital Signs Date/Time: Apr 22, 2015 Temperature 97.0 F Weight 186.6 lbs Height 59 in BMI 37.689 Index Blood Pressure Diastolic 68 mmHg Blood Pressure Systolic 106 mmHg Cardiac Monitoring Heart Rate 82 bpm Results Name Result Date Reference Range Unit Abnormality Flag UA OB DIP (IN HOUSE) ----Glucose negative 20150422 ----Protein trace [id number] Summary Purpose [employer] Submission
--- OUTSIDE RECORDS SUMMARY | 2018-01-25 08:31 | XMS REPORT ---
Author MCKENNA Archer [facility] [place] [employer] Address Unknown Phone Unavailable Care Team Providers Care Window Glazier Name Role Phone MCKENNA MENARD CP Unavailable Allergies No Known Allergies Problems Problem Type Condition Code Onset Dates Condition Status Problem Supervision of other normal V22.1 Active Assessment Encounter for supervision of other normal , second trimester Z34.82 Active Problem History of insulin resistance V12.29 Active Medications Medication Code System Code Instructions Start Date End Date Status Dosage Clotrimazole [facility] [address]-28 1 % Externally Twice a day Feb 25, 2015 1 application to affected area Procedures Procedure Coding System Code Date Office Visit, Est Pt., Level 3 CPT-4 05544 Feb 25, 2015 URINE-NO MICRO CPT-4 77855 Feb 25, 2015 Vital Signs Date/Time: Feb 25, 2015 Temperature 98.0 F Weight 184.1 lbs Height 59 in BMI 37.184 Index Blood Pressure Diastolic 76 mmHg Blood Pressure Systolic 120 mmHg Cardiac Monitoring Heart Rate 78 bpm Results Name Result Date Reference Range Unit Abnormality Flag UA OB DIP (IN HOUSE) Summary Purpose [employer]Clinical[employer] Submission
--- OUTSIDE RECORDS SUMMARY | 2018-01-25 08:31 | XMS REPORT | Continuity of Care Document ---
Author Author [facility] Address Unknown Phone Unavailable Allergies Active Description Code Type Severity Reaction Onset Reported/Identified Relationship to Patient Clinical Status Yes No Known Drug Allergies [id number] Drug Allergy Unknown N/A 01/22/2018 Medications There is no data. Problems Date Dx Coded Attending Type Code Diagnosis Diagnosed By 04/25/2011 LOS VICTOR APRN V72.42 Test Positive Result 04/25/2011 LOS VICTOR APRN V72.42 Test Positive Result 04/27/2011 LOS VICTOR APRN 787.02 Nausea Alone 04/27/2011 LOS VICTOR APRN V22.1 , NORMAL OTHER 04/27/2011 LOS VICTOR APRN 787.02 Nausea Alone 04/27/2011 LOS VICTOR APRN V22.1 , NORMAL OTHER 05/18/2011 LOS VICTOR APRN V74.5 Std Screen 05/18/2011 LOS VICTOR APRN V76.2 Cervical Cancer Screening (pap Smear) 05/18/2011 LOS VICTOR APRN V74.5 Std Screen 05/18/2011 LOS VICTOR APRN V76.2 Cervical Cancer Screening (pap Smear) 10/03/2011 LOS VICTOR APRN 649.60 UTERINE SIZE DATE DISCREPANCY - LGA 10/03/2011 LOS VICTOR APRN 649.60 UTERINE SIZE DATE DISCREPANCY - LGA 12/06/2011 Ot 659.71 ABN DEL FET HT RT/RHYTHM,W OR W/O MENTIO 12/06/2011 Ot 660.41 SHOULDER DYSTOCIA-DELIV 12/06/2011 Ot V06.1 DIPHTHERIA- TETANUS-PERTUSSIS, COMBINED [ 12/06/2011 Ot V27.0 DELIVER- SINGLE LIVEBORN 09/07/2013 VALENTE DIRECTOR OF DIGITAL MARKETING, LOS A 623.5 LEUKORRHEA NOT SPECIFIED INFECTIVE 09/07/2013 LOS VICTOR APRN A 724.2 LUMBAGO/ LOW BACK PAIN 09/07/2013 LOS VICTOR APRN A 789.00 ABDOMINAL PAIN UNSPECIFIED SITE 09/07/2013 LOS VICTOR APRN 623.5 LEUKORRHEA NOT SPECIFIED INFECTIVE 09/07/2013 LOS VICTOR APRN A 724.2 LUMBAGO/ LOW BACK PAIN 09/07/2013 LOS VICTOR APRN A 789.00 ABDOMINAL PAIN UNSPECIFIED SITE 09/09/2013 LOS VICTOR APRN A V25.01 CONTRACEPTION - ORAL CONTRACEPTION 09/09/2013 LOS VICTOR APRN A V25.01 CONTRACEPTION - ORAL CONTRACEPTION 06/09/2014 LOS VICTOR APRN 625.9 PELVIC PAIN 06/09/2014 LOS VICTOR APRN 626.2 EXCESSIVE OR FREQUENT MENSTRUATION 06/09/2014 LOS VICTOR APRN V74.5 STD SCREEN 06/09/2014 LOS VICTOR APRN V76.2 CERVICAL CANCER SCREENING (PAP SMEAR) 01/28/2015 Ot V22.1 01/28/2015 Ot V22.1 01/28/2015 Ot V22.1 02/02/2015 Ot V22.1 02/02/2015 Ot V22.1 02/02/2015 Ot V22.1 04/15/2015 Ot V22.1 04/15/2015 Ot V22.1 04/15/2015 Ot V22.1 04/15/2015 LUPE MALHOTRA DO Ot Z34.91 04/15/2015 LUPE MALHOTRA DO Ot Z34.91 05/27/2015 MCKENNA MENARD MD Ot Z34.82 05/27/2015 MCKENNA MENARD MD Ot Z34.82 05/27/2015 LUPE MALHOTRA DO Ot Z34.91 06/17/2015 LUPE MALHOTRA DO Ot Z34.91 06/17/2015 MCKENNA MENARD MD Ot Z34.82 08/27/2015 Ot V22.1 SUPERVIS OTH NORMAL PREG 08/27/2015 Ot V22.1 SUPERVIS OTH NORMAL PREG 08/27/2015 Ot V22.1 SUPERVIS OTH NORMAL PREG 08/27/2015 MALHOTRA DOSANDEEPShamika De Santiago Ot Z34.91 ENCNTR FOR SUPRVSN OF NORMAL PREG, UNSP, 08/27/2015 MCKENNA MENARD MD, Ot Z34.82 ENCOUNTER FOR SUPRVSN OF NORMAL PREGNANC 08/27/2015 MCKENNA MENARD MD Ot O14.13 SEVERE PRE-ECLAMPSIA, THIRD TRIMESTER 08/27/2015 MCKENNA MENARD MD, Ot Z37.0 SINGLE LIVE 08/27/2015 MCKENNA MENARD MD, Ot Z3A.39 39 WEEKS GESTATION OF 05/23/2017 MALHOTRA DOLUPE Anyi Ot Z34.91 ENCNTR FOR SUPRVSN OF NORMAL PREG, UNSP, 05/23/2017 MCKENNA MENARD MD, Ot Z34.82 ENCOUNTER FOR SUPRVSN OF NORMAL PREGNANC 05/24/2017 VADIM FONG PLANT RELIABILITY ENGINEER Ot R10.13 EPIGASTRIC PAIN 05/24/2017 VADIM FONG PLANT RELIABILITY ENGINEER Ot R10.13 EPIGASTRIC PAIN 05/31/2017 CADEN DUFF, LEONARD Tavera Ot E28.2 POLYCYSTIC OVARIAN SYNDROME 11/27/2017 ELISE NGUYEN APRN Ot K82.8 OTHER SPECIFIED DISEASES OF GALLBLADDER 11/27/2017 ELISE NGUYEN APRN Ot R10.11 RIGHT UPPER QUADRANT PAIN 11/27/2017 ELISE NGUYEN APRN Ot K82.8 OTHER SPECIFIED DISEASES OF GALLBLADDER 11/27/2017 ELISE NGUYEN APRN Ot R10.11 RIGHT UPPER QUADRANT PAIN 11/28/2017 ELISE NGUYEN APRN Ot K82.8 OTHER SPECIFIED DISEASES OF GALLBLADDER 11/28/2017 ELISE NGUYEN APRN Ot R10.11 RIGHT UPPER QUADRANT PAIN Procedures Code Description Performed By Performed On 73.59 MANUAL ASSIST DELIV NEC 12/05/2011 07435 UA W/ CULTURE IF INDICATED 09/07/2013 42537 TEST, URINE (IN- HOUSE) 09/07/2013 51512 CULTURE URINE 09/10/2013 54356 TEST, URINE (IN- HOUSE) 06/09/2014 86721 TRICHOMONAS (IN-HOUSE) 06/09/2014 69566 ROUTINE VENIPUNCTURE 06/10/2014 81147 GC/CHLAM PROBE (STATE) 06/10/2014 88796 PAP SMEAR 06/10/2014 Q0091 PAP SMEAR OBTAIN SMEAR 06/10/2014 58224 CULTURE UROGENITAL 06/10/2014 9754478 GFR CALC (RESULT ONLY) 06/10/2014 29905 CMP 06/10/2014 75558 LIPID PANEL 06/10/2014 35810 CBC 06/10/2014 14275 TSH 06/10/2014 59215 INSULIN LEVEL 06/11/2014 55C5GBC DELIVERY OF PRODUCTS OF CONCEPTION, EXTE 08/26/2015 Results Test Result Range Pap Lb, rfx HPV ASCU - 02/09/16 17:44 DIAGNOSIS: Comment Specimen adequacy: Comment Clinician provided ICD10: Comment Performed by: Comment Electronically signed by: Comment . . Pathologist provided ICD10: Comment Note: Comment . Comment Genital Culture, Routine - 02/09/16 17:44 Genital Culture, Routine Note Pathology Report - 03/03/16 16:38 . Comment . Comment . Comment . Comment . Comment . Comment . Comment . Comment TESTOSTERONE, TOTAL (WOMEN, CHILDREN, HYPOGONADAL MALES) - 05/15/17 10:56 TESTOSTERONE, TOTAL, LC/MS/MS 53 ng/dL 2-45 FREE TESTOSTERONE 5.0 pg/mL 0.1-6.4 Blood CBC with ordered manual differential panel - 01/22/18 12:00 Blood leukocytes automated count (number/volume) 10.2 10*3/uL 4.3-11.0 Blood erythrocytes automated count (number/volume) 4.38 10*6/uL 4.35-5.85 Venous blood hemoglobin measurement (mass/volume) 13.4 g/dL 11.5-16.0 Blood hematocrit (volume fraction) 38 % 35-52 Automated erythrocyte mean corpuscular volume 86 [foz_us] 80-99 Automated erythrocyte mean corpuscular hemoglobin (mass per erythrocyte) 31 pg 25-34 Automated erythrocyte mean corpuscular hemoglobin concentration measurement ( mass/volume) 36 g/dL 32-36 Automated erythrocyte distribution width ratio 13.4 % 10.0-14.5 Automated blood platelet count (count/volume) 313 10*3/uL 130-400 Automated blood platelet mean volume measurement 10.8 [foz_us] 7.4-10.4 Automated blood neutrophils/100 leukocytes 58 % 42-75 Automated blood lymphocytes/100 leukocytes 30 % 12-44 Blood monocytes/100 leukocytes 8 % NRG Automated blood eosinophils/100 leukocytes 4 % 0-10 Automated blood basophils/100 leukocytes 0 % 0-10 Blood neutrophils automated count (number/volume) 5.9 10*3 1.8-7.8 Blood lymphocytes automated count (number/volume) 3.0 10*3 1.0-4.0 Blood monocytes automated count (number/volume) 0.8 10*3 0.0-1.0 Automated eosinophil count 0.4 10*3/uL 0.0-0.3 Automated blood basophil count (count/volume) 0.0 10*3/uL 0.0-0.1 Manual blood segmented neutrophils/100 leukocytes 58 % NRG Blood band neutrophils/100 leukocytes 1 % NRG Manual blood lymphocytes/100 leukocytes 29 % NRG Manual eosinophils/100 leukocytes in nose 3 % NRG Manual blood basophils/100 leukocytes 1 % NRG Blood erythrocyte morphology finding identification NORMAL NRG Methicillin resistant Staphylococcus aureus (MRSA) screening culture - 12:00 Methicillin resistant Staphylococcus aureus (MRSA) screening culture NEG NRG Encounters ACCT No. Visit Date/Time Discharge Status Pt. Type Provider Facility Loc./Unit Complaint [id number] 06/10/2014 09:39:00 06/10/2014 23:59:59 CLS Outpatient LOS VICTOR APRN [id number] 09/09/2013 15:31:00 09/09/2013 23:59:59 CLS Outpatient LOS VICTOR APRN [id number] 02/16/2016 05:06:00 Document Registration [id number] 02/12/2016 10:05:00 Document Registration [id number] 11/14/2017 10:40:00 11/14/2017 23:59:59 CLS Outpatient ELA GONZALEZ [facility] [id number] 05/15/2017 09:40:00 Document Registration [id number] 03/08/2016 18:05:00 Document Registration [id number] 01/22/2018 11:28:00 01/22/2018 13:58:00 DIS Outpatient ERIK GAYTAN DO [facility] PREOP BILIARY DYSKINESIA [id number] 11/23/2017 11:37:00 11/23/2017 23:59:59 CLS Outpatient ELISE NGUYEN DIRECTOR OF DIGITAL MARKETING [facility] CARD RUQ ABD PAIN [id number] 06/02/2017 12:00:00 06/02/2017 23:59:59 CLS Preadmit VADIM FONG PLANT RELIABILITY ENGINEER [facility] CARD R10.11 RIGHT UPPER QUADRANT PAIN [id number] 05/30/2017 12:57:00 05/30/2017 23:59:59 CLS Outpatient LEONARD NEGRETE MD [facility] RAD E28.2 POLYCYSTIC OVARIAN SYNDROME [id number] 05/23/2017 07:46:00 05/23/2017 23:59:59 CLS Outpatient VADIM FONG PLANT RELIABILITY ENGINEER [facility] RAD R10.13 DYSPEPSIA [id number] 08/26/2015 09:47:00 08/27/2015 17:20:00 DIS Inpatient MCKENNA MENARD MD [facility] LDRP LABOR [id number] 04/15/2015 10:30:00 04/15/2015 23:59:59 CLS Outpatient MCKENNA MENARD MD [facility] RAD SURVEY [id number] 02/02/2015 10:20:00 02/02/2015 23:59:59 CLS Outpatient LUPE MALHOTRA DO [facility] RAD DATING, VIABILITY [id number] 01/25/2018 08:00:00 PEN Preadmit ERIK GAYTAN DO [facility] SDC BILIARY DYSKINESIA [id number] 12/05/2011 06:12:00 Document Registration [id number] 10/11/2011 13:13:00 Document Registration [id number] 08/03/2011 10:45:00 Document Registration [id number] 05/09/2011 09:48:00 Document Registration
[2018-01-25] MEDS ORDERED: FAMOTIDINE 20MG/2ML IV (PEPCID) IV ONE (08:45)
[2018-01-25] MEDS ORDERED: ceFAZolin 2 GM IV Premixed 50 ML IV ONE (08:45)
[2018-01-25] MEDS ORDERED: LIDOCAINE PF 2% 2 ML (XYLOCAINE) VIAL ONE (08:47)
[2018-01-25] MEDS ORDERED: DEXAMETHASONE 10 MG/ML (DECADRON) 1 ML VIAL ONE (08:47)
[2018-01-25] MEDS ORDERED: MIDAZOLAM 2 MG/2 ML (VERSED) VIAL ONE (08:47)
[2018-01-25] MEDS ORDERED: proPOfol 200 MG/20 ML (DIPRIVAN) VIAL IV ONE (08:47)
[2018-01-25] MEDS ORDERED: ONDANSETRON 4 MG/2 ML (SDV) Z0FRAN ONE (08:47)
[2018-01-25] MEDS ORDERED: fentaNYL INJECTION 100 MCG/2 ML AMP ONE ×2 (08:48→09:42)
[2018-01-25] MEDS ORDERED: ROCURONIUM 10 MG/ML 5 ML SYRINGE IV ONE (08:54)
[2018-01-25] MEDS ORDERED: SEVOFLURANE (ULTANE) 15 ML INHAL SOLN ONE (08:55)
--- NOTE | 2018-01-25 09:10 | Progress Note-Pre Operative ---
Pre-Operative Progress Note H&P Reviewed The H&P was reviewed, patient examined and no changes noted. Date Seen by Provider: Jan 25, 2018 Time Seen by Provider: 09:00 Date H&P Reviewed: Jan 25, 2018 Time H&P Reviewed: 09:00 Pre-Operative Diagnosis: ruq abdominal pain, biliary dyskinesia ERIK GAYTAN DO Jan 25, 2018 09:10
[2018-01-25] MEDS ORDERED: DESFLURANE (SUPRANE) 15 ML INHAL SOLN ONE ×4 (09:30→10:46)
[2018-01-25] MEDS ORDERED: GLYCOPYRROLATE 0.2 MG/ML (ROBINUL) 2 ML VIAL ONE (10:29)
--- NOTE | 2018-01-25 10:29 | Progress Note-Post Operative ---
Post-Operative Progess Note Surgeon (s)/Optical Model Maker And Tester (s) Surgeon ERIK GAYTAN DO Optical Model Maker And Tester: Dr. Wynne Pre-Operative Diagnosis ruq abdominal pain, biliary dyskinesia Post-Operative Diagnosis same Procedure & Operative Findings Date of Procedure 01/25/18 Procedure Performed/Findings lap justice c ioc Anesthesia Type general Estimated Blood Loss Estimated blood loss (mL): min Specimens/Packing Specimens Removed gallbladder ERIK GAYTAN DO Jan 25, 2018 10:29
[2018-01-25] MEDS ORDERED: NEOSTIGMINE 1 MG/ML 5 ML SYRINGE ONE (10:30)
[2018-01-25] MEDS ORDERED: ACHD5005 PO (10:31)
--- NOTE | 2018-01-25 10:32 | Discharge Inst-Simple/Standard ---
Discharge Inst-Standard Discharge Medications New, Converted or Re-Newed RX: RX on Chart Patient Instructions/Follow Up Plan of Care/Instructions/FU: 2 weeks Haris Activity as Tolerated: No Discharge Diet: Regular Diet Other Inst to Patient Follow up Appt: Make appointment for 2 weeks. Instructions: No lifting greater than 10 pounds. No strenuous activity. May shower in 24 hours, no tub bath or soaking. Use incentive spirometer at home as directed. No Smoking Skin/Wound Care: You have special glue over incisions it will fall off on its own. Symptoms to Report: Appetite Changes, Extremity Discoloration, Numbness/Tingling, Swelling Increased , Bleeding Excessive, Eyesight Changes, Pain Increased, Urine Color Change, Constipation(Persistent), Fever over 101 degree F, Pain/Pressure in chest, Urinating Difficulty, Cough Up/Vomit Blood, Heart Beat Irreg/Pounding, Pain/ Pressure in jaw, Vaginal Bleeding Increase, Cramps in feet or legs, Lightheadedness, Pain/Pressure in shoulder, Diarrhea(Persistent), Memory Changes Suddenly, Questions/Concerns, Weight gain consecutive days, Dizziness/ Fainting, Nausea/Vomiting, Shortness of Breath, Weight gain over 2 pounds. If eyes or skin turn yellow notify physician. If questions or concerns contact your physician Or seek help at emergency department. ERIK GAYTAN DO Jan 25, 2018 10:32
[2018-01-25] MEDS ORDERED: HYDROcodone/APAP 5 MG/325 MG (LORTAB) TAB PO PRN (10:45)
[2018-01-25] MEDS ORDERED: ONDANSETRON 4 MG/2 ML (SDV) Z0FRAN IVP PRN (11:00)
[2018-01-25] MEDS ORDERED: HYDROmorphone 2 MG/ML VIAL (DILAUDID) IV ONE (11:00)
[2018-01-25] MEDS ORDERED: fentaNYL INJECTION 100 MCG/2 ML AMP IVP ONE (11:00)
[2018-01-25] MEDS ORDERED: MEPERIDINE (DEMEROL) INJ 50 MG/ML IVP ONE (11:00)
[2018-01-25 11:45] VITALS: BP 119/67
[2018-01-25 12:15] VITALS: BP 110/70
--- NOTE | 2018-01-25 12:31 | OPERATIVE REPORT ---
DATE OF SERVICE: 01/25/2018 PREOPERATIVE DIAGNOSIS: Right upper quadrant abdominal pain, biliary dyskinesia. POSTOPERATIVE DIAGNOSIS: Right upper quadrant abdominal pain, biliary dyskinesia. PROCEDURE: Laparoscopic cholecystectomy with intraoperative cholangiogram. SURGEON: Erik Carballo DO. CHIEF FUNDRAISING OFFICER: Dr. Wynne, assisted in retraction, dissection and closure. ANESTHESIA: General. ESTIMATED BLOOD LOSS: Minimal. COMPLICATIONS: None. INDICATIONS: The patient is a 32-year-old female who found to have biliary dyskinesia. She understands risks and benefits of procedure and wished to proceed with procedure. Consent was signed on the chart. DESCRIPTION OF PROCEDURE: The patient was taken into the operating suite. She was prepped and draped in sterile fashion. Surgical pause was performed. Kyle technique was used to enter the abdomen at the umbilicus. A balloon trocar was inserted and pneumoperitoneum was achieved. Under direct visualization of the laparoscope, a 5 mm trocar was placed in subxiphoid region and two 5 mm trocars were placed in the right upper quadrant. Gallbladder was grasped, elevated. The cystic duct and cystic artery were then dissected around. Clips were placed on the proximal and distal portion of the cystic artery and this was then transected to take it to the duct better. A clip was placed on the distal portion of the cystic duct, which was then partially transected. Arrow catheter was inserted. The duct and cholangiogram was performed. There were no filling defects. Contrast made its way into the duodenum without difficulty. The arrow catheter was removed. Clips were placed on the proximal portion of the cystic duct and this was then transected. Cautery dissection was used to begin to remove the gallbladder from the gallbladder fossa. A posterior branch of the cystic artery was partially transected causing some slight bleeding, which clips were placed to control. Cautery was used to continue to take the gallbladder, gallbladder fossa achieving hemostasis. Once gallbladder was removed, it was placed in an Endobag and removed through the 12 mm trocar site. A small amount of bleeding was still present, which cautery was used to achieve hemostasis. This was irrigated with copious amounts of irrigation . Again, the hemostasis was achieved. A piece of Surgicel was placed into the gallbladder fossa. The abdomen was then desufflated, the trocars were removed. The fascia was then closed using 0 Vicryl in a [id number] fashion. The skin was then closed with 4-0 Monocryl in a subcuticular fashion. The abdomen was then washed and dried and Skin Affix was placed over the incisions. The patient tolerated the procedure well without any complications. She was taken to the recovery room in stable condition. Job ID: [id number] DocumentID: [id number] Dictated Date: 01/25/2018 10:37:30 Custom Tailor Apprentice Date: 01/25/2018 12:31:14 Dictated By: ERIK CARBALLO DO
[2018-01-25 12:45] VITALS: BP 101/69
--- NOTE | 2018-01-25 13:05 | Diagnostic Imaging Report ---
Fluoroscopy at 9:55. Indication: Operative cholangiogram. Fluoroscopic assistance was provided for Dr. Carballo during his laparoscopic cholecystectomy procedure. 13 seconds of fluoroscopy time was utilized. 75 images were obtained. There is opacification of the common bile via a cystic duct catheter. The common bile duct does not seem to be significantly dilated and there is no defect within the visualized portion of the duct to suggest a retained calculus. Contrast is seen extending into the small bowel. Impression: Fluoroscopic assistance was provided for Dr. Carballo. Dictated by: Dictated on workstation # [id number]
--- NOTE | 2018-01-25 13:09 | Anesthesia-General Post-Op ---
General Patient Condition Mental Status/LOC: Same as Preop Cardiovascular: Satisfactory Nausea/Vomiting: Absent Respiratory: Satisfactory Pain: Controlled Complications: Absent Post Op Complications Complications None Follow Up Care/Instructions Patient Instructions None needed. Anesthesia/Patient Condition Patient Condition Patient is doing well, no complaints, stable vital signs, no apparent adverse anesthesia problems. No complications reported per nursing. STU ALVAREZ CRNA Jan 25, 2018 13:09
== END 2018-01-25 12:50 | disposition home or self-care (01) ==
LOC: SDC 07:51
PROVIDERS: ATTEND Surgery
DX: K81.1 Chronic cholecystitis (principal); K82.8 Other specified diseases of gallbladder; Z79.84 Long term (current) use of oral hypoglycemic drugs; K21.9 Gastro-esophageal reflux disease without esophagitis; E66.9 Obesity, unspecified; Z68.39 Body mass index [BMI] 39.0-39.9, adult
CPT/HCPCS: 84703; 94664

== ENCOUNTER 2018-02-24 10:31 | Inpatient (IN) | payer OTHER ==
[~2018-02-24] VITALS: Ht 160 cm; Wt 93.0 kg
[~2018-02-24 10:31] MED LIST changes: +ACHD5005 PO
[2018-02-24] MEDS ORDERED: ONDANSETRON 4 MG/2 ML (SDV) Z0FRAN ONE (10:43)
[2018-02-24] MEDS ORDERED: fentaNYL INJECTION 100 MCG/2 ML AMP ONE (10:43)
[2018-02-24] MEDS ORDERED: NS IV 1000 ML 1,000 ML ONE (10:44)
[2018-02-24 10:53] LABS: BASOPHILS % (AUTO) 0 % (0-10); EOSINOPHILS # (AUTO) 0.2 10^3/uL (0.0-0.3); EOSINOPHILS % (AUTO) 2 % (0-10); HEMATOCRIT 39 % (35-52); LYMPHOCYTES # (AUTO) 3.9 X 10^3 (1.0-4.0); LYMPHOCYTES % (AUTO) 34 % (12-44); MEAN CORPUSCULAR HEMOGLOBIN 29 PG (25-34); MEAN CORPUSCULAR HGB CONC 33 G/DL (32-36); MEAN CORPUSCULAR VOLUME 87 FL (80-99); MEAN PLATELET VOLUME 10.7 FL (7.4-10.4); MONOCYTES # (AUTO) 0.9 X 10^3 (0.0-1.0); MONOCYTES % (AUTO) 8 % (0-12); NEUTROPHILS # (AUTO) 6.4 X 10^3 (1.8-7.8); NEUTROPHILS % (AUTO) 56 % (42-75); PLATELET COUNT 342 10^3/uL (130-400); RED BLOOD COUNT 4.47 10^6/uL (4.35-5.85); WHITE BLOOD COUNT 11.5 10^3/uL (4.3-11.0)
[2018-02-24] MEDS ORDERED: ONDANSETRON 4 MG/2 ML (SDV) Z0FRAN IVP ONE (11:00)
[2018-02-24] MEDS ORDERED: fentaNYL INJECTION 100 MCG/2 ML AMP IVP ONE (11:00)
[2018-02-24] MEDS ORDERED: KETOROLAC 30 MG/ML VIAL IVP ONE (11:00)
[2018-02-24] MEDS ORDERED: NS IV 1000 ML 1,000 ML IV ONE (11:00)
--- NOTE | 2018-02-24 11:02 | ED Abdominal Pain ---
General Chief Complaint: Abdominal/GI Problems Stated Complaint: ABD PAIN, RECENT GALLBLADER SURGERY Nursing Triage Note: pt presents to er with complaint of severe abd pain that started roughly 20 minutes station captain. pt had gallbladder surgery a month ago. last bm was this morning. Sepsis Screen: No Definite Risk Source of Information: Patient, Family Exam Limitations: Language Barrier History of Present Illness Date Seen by Provider: Feb 24, 2018 Time Seen by Provider: 10:57 Initial Comments This 32-year-old female presents with a complaint of paroxysmal poorly localized sharp abdominal pain that began approximately 20 minutes prior to presentation to the emergency department. The patient denies similar pain in the past. Recent past medical history of significance includes cholecystectomy laparoscopically a month ago. The patient denies associated fever, chills, nausea, vomiting, diarrhea, dysuria , associated headache or stiff neck. Patient's a female. The patient is unclear concerning her status. The patient has had no untoward effects following her laparoscopic cholecystectomy. She had a normal bowel movement this morning. Allergies and Home Medications Allergies Coded Allergies: No Known Drug Allergies (Unverified , 01/22/18) Home Medications Hydrocodone Bit/Acetaminophen 1 Tab Tab, 1-2 TAB PO Q6H PRN for PAIN-MODERATE Prescribed by: ERIK GAYTAN on 01/25/18 1031 Metformin HCl 500 Mg Tablet, 500 MG PO BID, (Reported) Omeprazole 20 Mg Capsule.dr, 20 MG PO DAILY, (Reported) Patient Home Medication List Home Medication List Reviewed: Yes Review of Systems Review of Systems Constitutional: No chills, No fever EENTM: No Symptoms Reported; No Throat Swelling Respiratory: Denies Cough, Denies Shortness of Air Cardiovascular: Denies Chest Pain Gastrointestinal: See HPI, Abdomen Distended; Denies Diarrhea, Denies Nausea, Denies Vomiting Genitourinary: Denies Burning, Denies Frequency Musculoskeletal: No back pain Skin: No rash Psychiatric/Neurological: Denies Emotional Problems Endocrine: Denies Excessive Sweating Hematologic/Lymphatic: Denies Anemia Past Ztmxcdd-Lmhwwi-Ntqewl Hx Past Med/Social Hx: Reviewed Nursing Past Med/Soc Hx Patient Social History Alcohol Use: Denies Use Recreational Drug Use: No Smoking Status: Never a Smoker Recent Foreign Travel: No Contact w/Someone Who Travel: No Recent Infectious Disease Expo: No Recent Hopitalizations: No Immunizations Up To Date Tetanus Booster (TDap): Unknown PED Vaccines UTD: Yes Seasonal Allergies Seasonal Allergies: Yes Past Medical History Surgeries: Yes Gallbladder Respiratory: No Cardiac: No Neurological: No Reproductive Disorders: Yes (TAKES METFORMIN FOR OVARIES) Sexually Transmitted Disease: No HIV/AIDS: No Gastrointestinal: Yes Gastroesophageal Reflux, Gall Bladder Disease Musculoskeletal: No Endocrine: No Loss of Vision: Denies Hearing Impairment: Denies Cancer: No Psychosocial: No Integumentary: No Blood Disorders: No Adverse Reaction/Blood Tranf: No Family Medical History Patient reports no known family medical history. Physical Exam Vital Signs Vital Signs - First Documented 02/24/18 10:34 Temp 99.2 Pulse 78 Resp 20 B/P (MAP) 147/101 (116) Pulse Ox 98 O2 Delivery Room Air Capillary Refill : Less Than 3 Seconds Height/Weight/BMI Height: 5'0.00" Weight: 203lbs. 2.0oz. 92.423500sz; 39.7 BMI Method:Stated General Appearance: WD/WN, mild distress HEENT: normal ENT inspection Neck: full range of motion, normal inspection Respiratory: lungs clear Cardiovascular: regular rate, rhythm Gastrointestinal: abnormal bowel sounds (decreased bowel sounds were noted.), tenderness (there is diffuse tenderness greatest in the right upper quadrant.) Extremities: normal range of motion, normal inspection Back: normal inspection Neurologic/Psychiatric: no motor/sensory deficits, alert, normal mood/affect Skin: normal color, warm/dry; No rash Progress/Results/Core Measures Results/Orders Lab Results Laboratory Tests Test 02/24/18 10:38 02/24/18 11:34 Range/Units White Blood Count 11.5 H 4.3-11.0 10^3/uL Red Blood Count 4.47 4.35-5.85 10^6/uL Hemoglobin 13.0 11.5-16.0 G/DL Hematocrit 39 35-52 % Mean Corpuscular Volume 87 80-99 FL Mean Corpuscular Hemoglobin 29 25-34 PG Mean Corpuscular Hemoglobin Concent 33 32-36 G/DL Red Cell Distribution Width 13.0 10.0-14.5 % Platelet Count 342 130-400 10^3/uL Mean Platelet Volume 10.7 H 7.4-10.4 FL Neutrophils (%) (Auto) 56 42-75 % Lymphocytes (%) (Auto) 34 12-44 % Monocytes (%) (Auto) 8 0-12 % Eosinophils (%) (Auto) 2 0-10 % Basophils (%) (Auto) 0 0-10 % Neutrophils # (Auto) 6.4 1.8-7.8 X 10^3 Lymphocytes # (Auto) 3.9 1.0-4.0 X 10^3 Monocytes # (Auto) 0.9 0.0-1.0 X 10^3 Eosinophils # (Auto) 0.2 0.0-0.3 10^3/uL Basophils # (Auto) 0.0 0.0-0.1 10^3/uL Sodium Level 140 135-145 MMOL/L Potassium Level 3.5 L 3.6-5.0 MMOL/L Chloride Level 108 H 98-107 MMOL/L Carbon Dioxide Level 20 L 21-32 MMOL/L Anion Gap 12 5-14 MMOL/L Blood Urea Nitrogen 12 7-18 MG/DL Creatinine 0.62 0.60-1.30 MG/DL Estimat Glomerular Filtration Rate > 60 BUN/Creatinine Ratio 19 Glucose Level 122 H 70-105 MG/DL Calcium Level 9.4 8.5-10.1 MG/DL Corrected Calcium 9.2 8.5-10.1 MG/DL Total Bilirubin 0.7 0.1-1.0 MG/DL Aspartate Amino Transf (AST/SGOT) 80 H 5-34 U/L Alanine Aminotransferase (ALT/SGPT) 86 H 0-55 U/L Alkaline Phosphatase 97 40-136 U/L Total Protein 7.5 6.4-8.2 GM/DL Albumin 4.3 3.2-4.5 GM/DL Lipase 07143 H 8-78 U/L Serum Test, Qualitative NEGATIVE NEGATIVE Urine Color YELLOW Urine Clarity CLEAR Urine pH 6 5-9 Urine Specific [place] 1.010 L 1.016-1.022 Urine Protein NEGATIVE NEGATIVE Urine Glucose (UA) NEGATIVE NEGATIVE Urine Ketones NEGATIVE NEGATIVE Urine Nitrite NEGATIVE NEGATIVE Urine Bilirubin NEGATIVE NEGATIVE Urine Urobilinogen NORMAL NORMAL MG/DL Urine Leukocyte Esterase 1+ H NEGATIVE Urine RBC (Auto) 1+ H NEGATIVE Urine RBC NONE /HPF Urine WBC 0-2 /HPF Urine Squamous Epithelial Cells 2-5 /HPF Urine Crystals NONE /LPF Urine Bacteria TRACE /HPF Urine Casts NONE /LPF Urine Mucus NEGATIVE /LPF Urine Culture Indicated NO My Orders Orders - ANNIE DIAZ MD Fentanyl Injection (Sublimaze Injection (02/24/18 10:43) Ondansetron Injection (Zofran Injectio (02/24/18 10:43) Ns Iv 1000 Ml (Sodium Chloride 0.9%) (02/24/18 10:44) Ondansetron Injection (Zofran Injectio (02/24/18 11:00) Cbc With Automated Diff (02/24/18 10:54) Ct Abdomen/Pelvis Wo (02/24/18 10:54) Hydromorphone Injection (Dilaudid Inject (02/24/18 12:30) Medications Given in ED Current Medications Medications Dose Ordered Sig/Kareem Route Start Time Stop Time Status Last Admin Dose Admin Fentanyl Citrate 75 mcg ONCE ONCE IVP 02/24/18 11:00 02/24/18 11:01 DC 02/24/18 10:52 75 MCG Ondansetron HCl 4 mg ONCE ONCE IVP 02/24/18 11:00 02/24/18 11:01 DC 02/24/18 10:45 4 MG Sodium Chloride 1,000 ml @ 0 mls/hr Q0M ONCE IV 02/24/18 11:00 02/24/18 11:01 DC 02/24/18 10:52 1,000 MLS/HR Vital Signs/I&O 02/24/18 10:34 Temp 99.2 Pulse 78 Resp 20 B/P (MAP) 147/101 (116) Pulse Ox 98 O2 Delivery Room Air Blood Pressure Mean: 116 Progress Progress Note : Time: 12:18 Progress Note The patient's pain was poorly controlled with 50 g of fentanyl IV. I've ordered an additional 1 mg of Dilaudid IV. Patient's workup demonstrated evidence of acute pancreatitis on CT of the abdomen and pelvis with an associated lipase of 15,000. Patient's white count and urinalysis were essentially unremarkable. After telephone consultation with Yu and Marko the patient was admitted. Departure Communication (Admissions) Time/Spoke to Admitting Phy: 12:20 Dr. Sheikh Time/Spoke to Consulting Phy: 12:20 Dr. Zhu Impression Primary Impression: Pancreatitis Qualified Codes: K85.90 - Acute pancreatitis without necrosis or infection, unspecified Disposition: ADMITTED INPATIENT Condition: Improved Admissions Decision to Admit Reason: Admit from ER (General) Decision to Admit/Date: Feb 24, 2018 Time/Decision to Admit Time: 12:21 Departure-Patient Inst. Referrals: LUPE MALHOTRA DO (PCP) Primary Care Physician ELISE NGUYEN APRN (Family) Primary Care Physician ANNIE DIAZ MD Feb 24, 2018 11:02
[2018-02-24 11:12] LABS: ALANINE AMINOTRANSFERASE 86 U/L (0-55); ALBUMIN 4.3 GM/DL (3.2-4.5); ALKALINE PHOSPHATASE 97 U/L (40-136); BILIRUBIN,TOTAL 0.7 MG/DL (0.1-1.0); BUN/CREATININE RATIO 19; CALCIUM 9.4 MG/DL (8.5-10.1); CARBON DIOXIDE 20 MMOL/L (21-32); CHLORIDE 108 MMOL/L (98-107); CREATININE SERUM 0.62 MG/DL (0.60-1.30); GFR ESTIMATED > 60; GLUCOSE 122 MG/DL (70-105); POTASSIUM 3.5 MMOL/L (3.6-5.0); SODIUM 140 MMOL/L (135-145); TOTAL PROTEIN 7.5 GM/DL (6.4-8.2)
[2018-02-24 11:44] LABS: BILIRUBIN,URINE NEGATIVE (NEGATIVE); CLARITY,URINE CLEAR; COLOR,URINE YELLOW; GLUCOSE, URINE (UA) NEGATIVE (NEGATIVE); KETONES,URINE NEGATIVE (NEGATIVE); LEUKOCYTE ESTERASE ,URINE 1+ (NEGATIVE); NITRITE,URINE NEGATIVE (NEGATIVE); PH,URINE 6 (5-9); PROTEIN,URINE NEGATIVE (NEGATIVE); UROBILINOGEN,URINE NORMAL (NORMAL)
[2018-02-24 11:54] LABS: BACTERIA,URINE TRACE /HPF; WBC,URINE 0-2 /HPF
[2018-02-24 11:56] LABS: LIPASE 15104 U/L (8-78)
--- NOTE | 2018-02-24 12:03 | Diagnostic Imaging Report ---
PROCEDURE: CT abdomen and pelvis without contrast. TECHNIQUE: Multiple contiguous axial images were obtained through the abdomen and pelvis without the use of intravenous contrast. INDICATION: Severe abdominal pain. Patient reports history of cholecystectomy approximately one month ago. COMPARISON: Abdominal ultrasound performed on 05/23/2017. FINDINGS: Absence of intravenous contrast decreases sensitivity for detection of focal lesions and vascular pathology. LOWER THORAX: Mild basilar subsegmental atelectasis. Visualized heart is normal in size. DIAPHRAGM: Unremarkable. LIVER: Normal. GALLBLADDER: Surgically absent. BILE DUCTS: No biliary ductal dilatation. No calcified stone is demonstrated in the common bile duct. SPLEEN: Normal. PANCREAS: There is marked peripancreatic inflammatory change and stranding fluid. No focal peripancreatic collection is demonstrated. There is no pancreatic ductal dilatation. ADRENAL GLANDS: No nodules. KIDNEYS AND URETERS: No hydronephrosis. There is a punctate 2 mm calculus in the lower pole of the right kidney. The visualized ureters are normal. STOMACH AND BOWEL: Stomach is physiologically-distended. No bowel obstruction. No inflammatory changes. APPENDIX: Normal. PELVIC ORGANS/BLADDER: Bladder is normal. Uterus demonstrates a normal CT appearance. The left ovary is mildly enlarged relative to the right, measuring up to 5.3 x 3.0 cm, with suggestion of a cyst medially. PERITONEUM AND RETROPERITONEUM: As above, there is moderate peripancreatic stranding and fluid. No focal collection. No pneumoperitoneum. LYMPH NODES: No lymphadenopathy. VESSELS: Abdominal aorta is nonaneurysmal. ABDOMINAL WALL: Mild stranding in the subcutaneous fat at the level of the umbilicus, likely related to recent surgery. BONES: No acute abnormality. IMPRESSION: Acute pancreatitis, with associated moderate peripancreatic inflammatory change and stranding fluid. No focal peripancreatic collection is seen. No calcified gallstone in the biliary tree. The left ovary is asymmetrically enlarged relative to the right, with suggestion of a cystic lesion. Further evaluation can be obtained with dedicated pelvic ultrasound. Nonobstructing right lower pole renal calculus. Report was faxed/called to [facility] by garima at 12:02 am. Dictated by: Dictated on workstation # [id number]
[2018-02-24] MEDS ORDERED: HYDROmorphone 2 MG/ML VIAL (DILAUDID) IV ONE (12:30)
[2018-02-24] MEDS ORDERED: NS IV 1000 ML 1,000 ML IV SCH (12:30)
--- OUTSIDE RECORDS SUMMARY | 2018-02-24 12:36 | XMS REPORT | Continuity of Care Document ---
Author Author [facility] Address Unknown Phone Unavailable Allergies Active Description Code Type Severity Reaction Onset Reported/Identified Relationship to Patient Clinical Status Yes No Known Drug Allergies [id number] Drug Allergy Unknown N/A 01/22/2018 Medications There [...] Ot V27.0 DELIVER- SINGLE LIVEBORN 09/07/2013 VALENTE ACID CORRECTION HAND, LOS A 623.5 LEUKORRHEA NOT SPECIFIED INFECTIVE [...] V22.1 SUPERVIS OTH NORMAL PREG 08/27/2015 MALHOTRA LUPE WETZEL Anyi Ot Z34.91 ENCNTR FOR SUPRVSN OF NORMAL PREG, UNSP, 08/27/2015 MCKENNA MENARD MD, Ot Z34.82 ENCOUNTER FOR SUPRVSN OF NORMAL PREGNANC 08/27/2015 MCKENNA MENARD MD Ot O14.13 SEVERE PRE-ECLAMPSIA, THIRD TRIMESTER 08/27/2015 MCKENNA MENARD MD Ot Z37.0 SINGLE LIVE 08/27/2015 MCKENNA MENARD MD, Ot Z3A.39 39 WEEKS GESTATION OF 05/23/2017 MALHOTRA LUPE WETZEL Anyi Ot Z34.91 ENCNTR FOR SUPRVSN OF NORMAL PREG, UNSP, 05/23/2017 MCKENNA MENARD MD, Ot Z34.82 ENCOUNTER FOR SUPRVSN OF NORMAL PREGNANC 05/24/2017 KENDYLVADIM RESEARCH NEUROPSYCHOLOGIST Ot R10.13 EPIGASTRIC PAIN 05/24/2017 VADIM FONG RESEARCH NEUROPSYCHOLOGIST Ot R10.13 EPIGASTRIC PAIN 05/31/2017 CADEN DUFF, [...] APRN Ot R10.11 RIGHT UPPER QUADRANT PAIN 01/22/2018 ERIK GAYTAN DO Ot K82.8 OTHER SPECIFIED DISEASES OF GALLBLADDER 01/22/2018 ERIK GAYTAN DO Ot R10.11 RIGHT UPPER QUADRANT PAIN 01/22/2018 ERIK GAYTAN DO Ot Z01.812 ENCOUNTER FOR PREPROCEDURAL LABORATORY E 01/22/2018 ERIK GAYTAN DO Ot Z11.2 ENCOUNTER FOR SCREENING FOR OTHER BACTER 01/24/2018 ERIK GAYTAN DO Ot K82.8 OTHER SPECIFIED DISEASES OF GALLBLADDER 01/24/2018 ERIK GAYTAN DO Ot R10.11 RIGHT UPPER QUADRANT PAIN 01/24/2018 ERIK GAYTAN DO Ot Z01.812 ENCOUNTER FOR PREPROCEDURAL LABORATORY E 01/24/2018 ERIK GAYTAN DO Ot Z11.2 ENCOUNTER FOR SCREENING FOR OTHER BACTER 01/25/2018 ERIK GAYTAN DO Ot E66.9 OBESITY, UNSPECIFIED 01/25/2018 ERIK GAYTAN DO Ot K21.9 GASTRO-ESOPHAGEAL REFLUX DISEASE WITHOUT 01/25/2018 ERIK GAYTAN DO Ot K81.1 CHRONIC CHOLECYSTITIS 01/25/2018 ERIK GAYTAN DO Ot K82.8 OTHER SPECIFIED DISEASES OF GALLBLADDER 01/25/2018 ERIK GAYTAN DO Ot Z68.39 BODY MASS INDEX (BMI) 39.0-39.9, ADULT 01/25/2018 ERIK GAYTAN DO Ot Z79.84 LONG-TERM (CURRENT) USE OF ORAL HYPOGLYC 01/28/2018 ERIK GAYTAN DO Ot K82.8 OTHER SPECIFIED DISEASES OF GALLBLADDER 01/28/2018 ERIK GAYTAN DO Ot R10.11 RIGHT UPPER QUADRANT PAIN 01/28/2018 ERIK GAYTAN DO Ot Z01.812 ENCOUNTER FOR PREPROCEDURAL LABORATORY E 01/28/2018 ERIK GAYTAN DO Ot Z11.2 ENCOUNTER FOR SCREENING FOR OTHER BACTER 01/29/2018 ERIK GAYTAN DO Ot E66.9 OBESITY, UNSPECIFIED 01/29/2018 ERIK GAYTAN DO Ot K21.9 GASTRO-ESOPHAGEAL REFLUX DISEASE WITHOUT 01/29/2018 ERIK GAYTAN DO Ot K81.1 CHRONIC CHOLECYSTITIS 01/29/2018 ERIK GAYTAN DO Ot K82.8 OTHER SPECIFIED DISEASES OF GALLBLADDER 01/29/2018 ERIK GAYTAN DO Ot Z68.39 BODY MASS INDEX (BMI) 39.0-39.9, ADULT 01/29/2018 ERIK GAYTAN DO Ot Z79.84 LONG-TERM (CURRENT) USE OF ORAL HYPOGLYC 02/07/2018 LUPE MALHOTRA DO Ot Z34.91 ENCNTR FOR SUPRVSN OF NORMAL PREG, UNSP, 02/07/2018 DERIAN DUFF, MCKENNA Bartholomew Ot Z34.82 ENCOUNTER FOR SUPRVSN OF NORMAL PREGNANC 02/07/2018 VADIM FONG RESEARCH NEUROPSYCHOLOGIST Ot R10.13 EPIGASTRIC PAIN 02/07/2018 CADEN DUFF, LEONARD Tavera Ot E28.2 POLYCYSTIC OVARIAN SYNDROME 02/07/2018 ELISE NGUYEN APRN Ot K82.8 OTHER SPECIFIED DISEASES OF GALLBLADDER 02/07/2018 ELISE NGUYEN APRN Ot R10.11 RIGHT UPPER QUADRANT PAIN 02/07/2018 ELISE NGUYEN APRN Ot K82.8 OTHER SPECIFIED DISEASES OF GALLBLADDER 02/07/2018 ELISE NGUYEN APRN Ot R10.11 RIGHT UPPER QUADRANT PAIN 02/08/2018 ERIK GAYTAN DO Ot K82.8 OTHER SPECIFIED DISEASES OF GALLBLADDER 02/08/2018 ERIK GAYTAN DO Ot R10.11 RIGHT UPPER QUADRANT PAIN 02/08/2018 ERIK GAYTAN DO Ot Z01.812 ENCOUNTER FOR PREPROCEDURAL LABORATORY E 02/08/2018 ERIK GAYTAN DO Ot Z11.2 ENCOUNTER FOR SCREENING FOR OTHER BACTER Procedures Code Description Performed By Performed On 73.59 MANUAL ASSIST DELIV NEC 12/05/2011 13446 UA W/ CULTURE IF INDICATED 09/07/2013 05793 TEST, URINE (IN- HOUSE) 09/07/2013 34646 CULTURE URINE 09/10/2013 30596 TEST, URINE (IN- HOUSE) 06/09/2014 17687 TRICHOMONAS (IN-HOUSE) 06/09/2014 45205 ROUTINE VENIPUNCTURE 06/10/2014 27913 GC/CHLAM PROBE (STATE) 06/10/2014 42660 PAP SMEAR 06/10/2014 Q0091 PAP SMEAR OBTAIN SMEAR 06/10/2014 42347 CULTURE UROGENITAL 06/10/2014 8550118 GFR CALC (RESULT ONLY) 06/10/2014 71025 CMP 06/10/2014 03731 LIPID PANEL 06/10/2014 61326 CBC 06/10/2014 84475 TSH 06/10/2014 26668 INSULIN LEVEL 06/11/2014 [id number] DELIVERY OF PRODUCTS OF CONCEPTION, EXTE 08/26/2015 [...] Staphylococcus aureus (MRSA) screening culture NEG NRG Urine beta human chorionic gonadotropin (hCG) measurement - 01/25/18 08:10 Urine beta human chorionic gonadotropin (hCG) measurement NEGATIVE NEGATIVE Complete blood count (CBC) with automated white blood cell (WBC) differential - 02/24/18 10:38 Blood leukocytes automated count (number/volume) 11.5 10*3/uL 4.3-11.0 Blood erythrocytes automated count (number/volume) 4.47 10*6/uL 4.35-5.85 Venous blood hemoglobin measurement (mass/volume) 13.0 g/dL 11.5-16.0 Blood hematocrit (volume fraction) 39 % 35-52 Automated erythrocyte mean corpuscular volume 87 [foz_us] 80-99 Automated erythrocyte mean corpuscular hemoglobin (mass per erythrocyte) 29 pg 25-34 Automated erythrocyte mean corpuscular hemoglobin concentration measurement ( mass/volume) 33 g/dL 32-36 Automated erythrocyte distribution width ratio 13.0 % 10.0-14.5 Automated blood platelet count (count/volume) 342 10*3/uL 130-400 Automated blood platelet mean volume measurement 10.7 [foz_us] 7.4-10.4 Automated blood neutrophils/100 leukocytes 56 % 42-75 Automated blood lymphocytes/100 leukocytes 34 % 12-44 Blood monocytes/100 leukocytes 8 % 0-12 Automated blood eosinophils/100 leukocytes 2 % 0-10 Automated blood basophils/100 leukocytes 0 % 0-10 Blood neutrophils automated count (number/volume) 6.4 10*3 1.8-7.8 Blood lymphocytes automated count (number/volume) 3.9 10*3 1.0-4.0 Blood monocytes automated count (number/volume) 0.9 10*3 0.0-1.0 Automated eosinophil count 0.2 10*3/uL 0.0-0.3 Automated blood basophil count (count/volume) 0.0 10*3/uL 0.0-0.1 Serum or plasma choriogonadotropin ( test) detection - 02/24/18 10:38 Serum or plasma choriogonadotropin ( test) detection NEGATIVE NEGATIVE Comprehensive metabolic panel - 02/24/18 10:38 Serum or plasma sodium measurement (moles/volume) 140 mmol/L 135-145 Serum or plasma potassium measurement (moles/volume) 3.5 mmol/L 3.6-5.0 Serum or plasma chloride measurement (moles/volume) 108 mmol/L 98-107 Carbon dioxide 20 mmol/L 21-32 Serum or plasma anion gap determination (moles/volume) 12 mmol/L 5-14 Serum or plasma urea nitrogen measurement (mass/volume) 12 mg/dL 7-18 Serum or plasma creatinine measurement (mass/volume) 0.62 mg/dL 0.60-1.30 Serum or plasma urea nitrogen/creatinine mass ratio 19 NRG Serum or plasma creatinine measurement with calculation of estimated glomerular filtration rate > NRG Serum or plasma glucose measurement (mass/volume) 122 mg/dL 70-105 Serum or plasma calcium measurement (mass/volume) 9.4 mg/dL 8.5-10.1 Serum or plasma total bilirubin measurement (mass/volume) 0.7 mg/dL 0.1-1.0 Serum or plasma alkaline phosphatase measurement (enzymatic activity/volume) 97 U/L 40-136 Serum or plasma aspartate aminotransferase measurement (enzymatic activity/ volume) 80 U/L 5-34 Serum or plasma alanine aminotransferase measurement (enzymatic activity/volume ) 86 U/L 0-55 Serum or plasma protein measurement (mass/volume) 7.5 g/dL 6.4-8.2 Serum or plasma albumin measurement (mass/volume) 4.3 g/dL 3.2-4.5 CALCIUM CORRECTED 9.2 mg/dL 8.5-10.1 Lipase - 02/24/18 10:38 Lipase 54662 U/L 8-78 Complete urinalysis with reflex to culture - 02/24/18 11:34 Urine color determination YELLOW NRG Urine clarity determination CLEAR NRG Urine pH measurement by test strip 6 5-9 Specific gravity of urine by test strip 1.010 1.016- 1.022 Urine protein assay by test strip, semi-quantitative NEGATIVE NEGATIVE Urine glucose detection by automated test strip NEGATIVE NEGATIVE Erythrocytes detection in urine sediment by light microscopy 1+ NEGATIVE Urine ketones detection by automated test strip NEGATIVE NEGATIVE Urine nitrite detection by test strip NEGATIVE NEGATIVE Urine total bilirubin detection by test strip NEGATIVE NEGATIVE Urine urobilinogen measurement by automated test strip (mass/volume) NORMAL NORMAL Urine leukocyte esterase detection by dipstick 1+ NEGATIVE Automated urine sediment erythrocyte count by microscopy (number/high power field) NONE NRG Automated urine sediment leukocyte count by microscopy (number/high power field ) [HPF] NRG Bacteria detection in urine sediment by light microscopy TRACE NRG Squamous epithelial cells detection in urine sediment by light microscopy 2-5 NRG Crystals detection in urine sediment by light microscopy NONE NRG Casts detection in urine sediment by light microscopy NONE NRG Mucus detection in urine sediment by light microscopy NEGATIVE NRG Complete urinalysis with reflex to culture NO NRG Encounters ACCT No. Visit Date/Time Discharge Status Pt. Type Provider Facility Loc./Unit Complaint [id number] 06/10/2014 09:39:00 06/10/2014 23:59:59 CLS Outpatient LOS VICTOR APRN [id number] 09/09/2013 15:31:00 09/09/2013 23:59:59 CLS Outpatient LOS VICTOR APRN [id number] 02/16/2016 05:06:00 Document Registration [id number] 02/12/2016 10:05:00 Document Registration [id number] 11/14/2017 10:40:00 11/14/2017 23:59:59 CLS Outpatient ELA GONZALEZ [facility] [id number] 05/15/2017 09:40:00 Document Registration [id number] 03/08/2016 18:05:00 Document Registration [id number] 02/20/2018 07:39:00 02/20/2018 23:59:59 CLS Preadmit EMILEE CHOWDARY DO S [facility] RAD ABN UTERINE BLEEDING [id number] 01/25/2018 07:51:00 01/25/2018 12:50:00 DIS Outpatient ERIK GAYTAN DO [facility] SDC BILIARY DYSKINESIA [id number] 01/22/2018 11:28:00 01/22/2018 13:58:00 DIS Outpatient ERIK GAYTAN DO [facility] PREOP BILIARY DYSKINESIA [id number] 11/23/2017 11:37:00 11/23/2017 23:59:59 CLS Outpatient PATRICK ELISE Puma DAS [facility] CARD RUQ ABD PAIN [id number] 06/02/2017 12:00:00 06/02/2017 23:59:59 CLS Preadmit MADJUANCARLOS VillarrealA L RESEARCH NEUROPSYCHOLOGIST [facility] CARD R10.11 RIGHT UPPER QUADRANT PAIN [id number] 05/30/2017 12:57:00 05/30/2017 23:59:59 CLS Outpatient LEONARD NEGRETE MD [facility] RAD E28.2 POLYCYSTIC OVARIAN SYNDROME [id number] 05/23/2017 07:46:00 05/23/2017 23:59:59 CLS Outpatient JUANCARLOS FONGA L RESEARCH NEUROPSYCHOLOGIST [facility] RAD R10.13 DYSPEPSIA [id number] 08/26/2015 09:47:00 08/27/2015 17:20:00 DIS Inpatient MCKENNA MENARD MD [facility] LDRP LABOR [id number] 04/15/2015 10:30:00 04/15/2015 23:59:59 CLS Outpatient MCKENNA MENARD MD [facility] RAD SURVEY [id number] 02/02/2015 10:20:00 02/02/2015 23:59:59 CLS Outpatient LUPE MALHOTRA DO [facility] RAD DATING, VIABILITY [id number] 02/24/2018 10:53:00 Document Registration [id number] 12/05/2011 06:12:00 Document Registration [id number] 10/11/2011 13:13:00 Document Registration [id number] 08/03/2011 10:45:00 Document Registration [id number] 05/09/2011 09:48:00 Document Registration
[2018-02-24 13:20] VITALS: BP 121/62
[2018-02-24] MEDS ORDERED: FLU QUADRIvalent (5+ YOA) 2018-2019 (AFLURIA) 0.5 ML IM ONE (14:45)
[2018-02-24] MEDS: NS IV 1000 ML 1,000 ML IV SCH (14:57)
[2018-02-24 15:18] VITALS: BP 106/69
[2018-02-24] MEDS: ONDANSETRON 4 MG/2 ML (SDV) Z0FRAN IV PRN ×2 (16:48→20:30)
--- NOTE | 2018-02-24 18:01 | History & Physicial (CHS) ---
HPI History of Present Illness: 32-year-old female presents to [facility] emergency department in the morning of February 24, 2018 with sharp abdominal pain primarily in the epigastric region. Apparently the pain began 20 minutes prior to presentation to [facility] ED. She denies any fever, nausea, vomiting, diarrhea, constipation, or chills. Of interest she did have a laparoscopic cholecystectomy about 1 month ago. Apparently she had no complications following the procedure. Source: patient Exam Limitations: clinical condition Date seen by provider: Feb 24, 2018 Time Seen by Provider: 18:30 Attending Physician Eric Menard MD PCP Latrice Camara DO Consult Date of Admission Feb 24, 2018 at 12:15 Home Medications Home Medications Reviewed patient Home Medication Reconciliation performed by pharmacy medication reconciliations pharmacy technician per diem and/or nursing. Patients Allergies have been reviewed. Allergies Coded Allergies: No Known Drug Allergies (Unverified , 01/22/18) LTL-Zebmsa-Khcrpp Hx Patient Social History Alcohol Use: Denies Use Recreational Drug Use: No Smoking Status: Never a Smoker Recent Foreign Travel: No Contact w/other who traveled: No Recent Hopitalizations: No Recent Infectious Disease Expo: No Physical Abuse Screen: No Sexual Abuse: No Immunizations Up To Date Tetanus Booster (TDap): Unknown Past Medical History No chronic medical problems Family Medical History Family History: Patient reports no known family medical history. Review of Systems (CHC) Constitutional: see HPI Reviewed Test Results Reviewed Test Results Lab Laboratory Tests Test 02/24/18 10:38 02/24/18 11:34 Range/Units White Blood Count 11.5 H 4.3-11.0 10^3/uL Red Blood Count 4.47 4.35-5.85 10^6/uL Hemoglobin 13.0 11.5-16.0 G/DL Hematocrit 39 35-52 % Mean Corpuscular Volume 87 80-99 FL Mean Corpuscular Hemoglobin 29 25-34 PG Mean Corpuscular Hemoglobin Concent 33 32-36 G/DL Red Cell Distribution Width 13.0 10.0-14.5 % Platelet Count 342 130-400 10^3/uL Mean Platelet Volume 10.7 H 7.4-10.4 FL Neutrophils (%) (Auto) 56 42-75 % Lymphocytes (%) (Auto) 34 12-44 % Monocytes (%) (Auto) 8 0-12 % Eosinophils (%) (Auto) 2 0-10 % Basophils (%) (Auto) 0 0-10 % Neutrophils # (Auto) 6.4 1.8-7.8 X 10^3 Lymphocytes # (Auto) 3.9 1.0-4.0 X 10^3 Monocytes # (Auto) 0.9 0.0-1.0 X 10^3 Eosinophils # (Auto) 0.2 0.0-0.3 10^3/uL Basophils # (Auto) 0.0 0.0-0.1 10^3/uL Sodium Level 140 135-145 MMOL/L Potassium Level 3.5 L 3.6-5.0 MMOL/L Chloride Level 108 H 98-107 MMOL/L Carbon Dioxide Level 20 L 21-32 MMOL/L Anion Gap 12 5-14 MMOL/L Blood Urea Nitrogen 12 7-18 MG/DL Creatinine 0.62 0.60-1.30 MG/DL Estimat Glomerular Filtration Rate > 60 BUN/Creatinine Ratio 19 Glucose Level 122 H 70-105 MG/DL Calcium Level 9.4 8.5-10.1 MG/DL Corrected Calcium 9.2 8.5-10.1 MG/DL Total Bilirubin 0.7 0.1-1.0 MG/DL Aspartate Amino Transf (AST/SGOT) 80 H 5-34 U/L Alanine Aminotransferase (ALT/SGPT) 86 H 0-55 U/L Alkaline Phosphatase 97 40-136 U/L Total Protein 7.5 6.4-8.2 GM/DL Albumin 4.3 3.2-4.5 GM/DL Lipase 36650 H 8-78 U/L Serum Test, Qualitative NEGATIVE NEGATIVE Urine Color YELLOW Urine Clarity CLEAR Urine pH 6 5-9 Urine Specific [place] 1.010 L 1.016-1.022 Urine Protein NEGATIVE NEGATIVE Urine Glucose (UA) NEGATIVE NEGATIVE Urine Ketones NEGATIVE NEGATIVE Urine Nitrite NEGATIVE NEGATIVE Urine Bilirubin NEGATIVE NEGATIVE Urine Urobilinogen NORMAL NORMAL MG/DL Urine Leukocyte Esterase 1+ H NEGATIVE Urine RBC (Auto) 1+ H NEGATIVE Urine RBC NONE /HPF Urine WBC 0-2 /HPF Urine Squamous Epithelial Cells 2-5 /HPF Urine Crystals NONE /LPF Urine Bacteria TRACE /HPF Urine Casts NONE /LPF Urine Mucus NEGATIVE /LPF Urine Culture Indicated NO Radiology NAME: MEL LUNA [facility] REC#: [id number] PT STATUS: ADM IN : 1985 PHYSICIAN: ANNIE DIAZ MD ADMIT DATE: 02/24/18/ Signed Date of Exam: 02/24/18 CT ABDOMEN/PELVIS WO PROCEDURE: CT abdomen and pelvis without contrast. TECHNIQUE: Multiple contiguous axial images were obtained through the abdomen and pelvis without the use of intravenous contrast. INDICATION: Severe abdominal pain. Patient reports history of cholecystectomy approximately one month ago. COMPARISON: Abdominal ultrasound performed on 05/23/2017. FINDINGS: Absence of intravenous contrast decreases sensitivity for detection of focal lesions and vascular pathology. LOWER THORAX: Mild basilar subsegmental atelectasis. Visualized heart is normal in size. DIAPHRAGM: Unremarkable. LIVER: Normal. GALLBLADDER: Surgically absent. BILE DUCTS: No biliary ductal dilatation. No calcified stone is demonstrated in the common bile duct. SPLEEN: Normal. PANCREAS: There is marked peripancreatic inflammatory change and stranding fluid. No focal peripancreatic collection is demonstrated. There is no pancreatic ductal dilatation. ADRENAL GLANDS: No nodules. KIDNEYS AND URETERS: No hydronephrosis. There is a punctate 2 mm calculus in the lower pole of the right kidney. The visualized ureters are normal. STOMACH AND BOWEL: Stomach is physiologically-distended. No bowel obstruction. No inflammatory changes. APPENDIX: Normal. PELVIC ORGANS/BLADDER: Bladder is normal. Uterus demonstrates a normal CT appearance. The left ovary is mildly enlarged relative to the right, measuring up to 5.3 x 3.0 cm, with suggestion of a cyst medially. PERITONEUM AND RETROPERITONEUM: As above, there is moderate peripancreatic stranding and fluid. No focal collection. No pneumoperitoneum. LYMPH NODES: No lymphadenopathy. VESSELS: Abdominal aorta is nonaneurysmal. ABDOMINAL WALL: Mild stranding in the subcutaneous fat at the level of the umbilicus, likely related to recent surgery. BONES: No acute abnormality. IMPRESSION: Acute pancreatitis, with associated moderate peripancreatic inflammatory change and stranding fluid. No focal peripancreatic collection is seen. No calcified gallstone in the biliary tree. The left ovary is asymmetrically enlarged relative to the right, with suggestion of a cystic lesion. Further evaluation can be obtained with dedicated pelvic ultrasound. Nonobstructing right lower pole renal calculus. Report was faxed/called to [facility] ER by garima at 12:02 am. Dictated by: Dictated on workstation # [id number] Dict: 02/24/18 1131 Trans: 02/24/18 1544 Interpreted by: EMILEE KAPADIA DO Electronically signed by: EMILEE KAPADIA DO 02/24/18 1544 Physical Exam-(CHC) Physical Exam Vital Signs VS - Last 72 Hours, by Label 02/24/18 02/24/18 02/24/18 02/24/18 10:34 13:05 13:20 13:32 Temp 99.2 97.5 Pulse 78 61 63 Resp 20 18 20 B/P (MAP) 147/101 (116) 123/82 (96) 121/62 (81) Pulse Ox 98 99 98 99 O2 Delivery Room Air Room Air Room Air Room Air 02/24/18 02/24/18 02/24/18 02/25/18 15:18 19:29 20:30 00:00 Temp 96.7 97.7 99.2 Pulse 63 62 69 Resp 16 16 20 B/P (MAP) 106/69 (81) 103/61 (75) 119/59 (79) Pulse Ox 99 99 97 O2 Delivery Room Air Room Air Room Air Room Air 02/25/18 02/25/18 04:00 07:53 Temp 98.0 98.6 Pulse 71 68 Resp 20 12 B/P (MAP) 105/59 (74) 111/65 (80) Pulse Ox 96 98 O2 Delivery Room Air Room Air Capillary Refill : Less Than 3 Seconds General Appearance: mild distress Eyes: Bilateral Eye Normal Inspection HEENT: pharynx normal Neck: non-tender Respiratory: lungs clear Cardiovascular: regular rate, rhythm Gastrointestinal: tenderness (Epigastrium to the right upper quadrant) Rectal: deferred Back: normal inspection Skin: normal color Assessment/Plan Assessment/Plan Admission Dx 1. Acute pancreatitis Admission Status: Inpatient Order (span 2 midnights) Reason for Inpatient Admission: Intravenous fluid hydration. Monitoring of pancreatic status. Assessment & Plan 1. Acute pancreatitis -Patient to be admitted to [facility] and receive IV fluids. -Recheck pancreatic enzymes, CBC and chemistries in the morning. -Surgical consultation Clinical Quality Measures DVT/VTE Risk/Contraindication: Risk Factor Score Per Nursin RFS Level Per Nursing on Admit: 3=High ERIC MENARD MD Feb 24, 2018 18:01
[2018-02-24 19:29] VITALS: BP 103/61
[2018-02-24] MEDS: fentaNYL INJECTION 100 MCG/2 ML AMP IV PRN (20:30)
[2018-02-25] VITALS: BP 119/59
[2018-02-25] MEDS: NS IV 1000 ML 1,000 ML IV SCH (01:11)
[2018-02-25 04:00] VITALS: BP 105/59
[2018-02-25] MEDS: ONDANSETRON 4 MG/2 ML (SDV) Z0FRAN IV PRN ×2 (05:55→15:48)
[2018-02-25 06:49] LABS: BASOPHILS % (AUTO) 0 % (0-10); EOSINOPHILS # (AUTO) 0.1 10^3/uL (0.0-0.3); EOSINOPHILS % (AUTO) 1 % (0-10); HEMATOCRIT 34 % (35-52); LYMPHOCYTES % (AUTO) 20 % (12-44); MEAN CORPUSCULAR HEMOGLOBIN 29 PG (25-34); MEAN CORPUSCULAR HGB CONC 33 G/DL (32-36); MEAN CORPUSCULAR VOLUME 89 FL (80-99); MEAN PLATELET VOLUME 10.7 FL (7.4-10.4); MONOCYTES # (AUTO) 0.7 X 10^3 (0.0-1.0); MONOCYTES % (AUTO) 7 % (0-12); NEUTROPHILS # (AUTO) 6.9 X 10^3 (1.8-7.8); NEUTROPHILS % (AUTO) 71 % (42-75); PLATELET COUNT 273 10^3/uL (130-400); RED BLOOD COUNT 3.79 10^6/uL (4.35-5.85); WHITE BLOOD COUNT 9.6 10^3/uL (4.3-11.0)
[2018-02-25 07:12] LABS: ALANINE AMINOTRANSFERASE 113 U/L (0-55); ALBUMIN 3.5 GM/DL (3.2-4.5); ALKALINE PHOSPHATASE 97 U/L (40-136); BILIRUBIN,TOTAL 0.7 MG/DL (0.1-1.0); BUN/CREATININE RATIO 16; CALCIUM 8.4 MG/DL (8.5-10.1); CARBON DIOXIDE 21 MMOL/L (21-32); CHLORIDE 110 MMOL/L (98-107); CREATININE SERUM 0.51 MG/DL (0.60-1.30); GFR ESTIMATED > 60; GLUCOSE 100 MG/DL (70-105); LIPASE 723 U/L (8-78); POTASSIUM 3.2 MMOL/L (3.6-5.0); SODIUM 140 MMOL/L (135-145)
[2018-02-25 07:53] VITALS: BP 111/65
--- NOTE | 2018-02-25 08:08 | Progress Note (SOAP) ---
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 She still has some discomfort in the epigastric and right upper quadrant. 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 Review of Systems Date Seen by Provider: Feb 25, 2018 Time Seen by Provider: 07:10 Objective Exam Last Set of Vital Signs Vital Signs Date Time Temp Pulse Resp B/P (MAP) Pulse Ox O2 Delivery O2 Flow Rate FiO2 02/25/18 07:53 98.6 68 12 111/65 (80) 98 Room Air Capillary Refill : Less Than 3 Seconds I&O Intake and Output 02/25/18 00:00 Intake Total 1500 ml Balance 1500 ml Intake Oral 500 ml IV Total 1000 ml # Voids 5 # Emeses 4 Daily Weight Change No General: No Acute Distress Lungs: Clear to Auscultation Heart: Regular Rate Abdomen: Normal Bowel Sounds, Soft (With slight tenderness with deeper palpation to the epigastrium) Skin: No Rashes Psych/Mental Status: Mental Status NL Results/Procedures Lab Laboratory Tests 02/24/18 10:38: White Blood Count 11.5H, Red Blood Count 4.47, Hemoglobin 13.0, Hematocrit 39, Mean Corpuscular Volume 87, Mean Corpuscular Hemoglobin 29, Mean Corpuscular Hemoglobin Concent 33, Red Cell Distribution Width 13.0, Platelet Count 342, Mean Platelet Volume 10.7H, Neutrophils (%) (Auto) 56, Lymphocytes (%) (Auto) 34 , Monocytes (%) (Auto) 8, Eosinophils (%) (Auto) 2, Basophils (%) (Auto) 0, Neutrophils # (Auto) 6.4, Lymphocytes # (Auto) 3.9, Monocytes # (Auto) 0.9, Eosinophils # (Auto) 0.2, Basophils # (Auto) 0.0, Sodium Level 140, Potassium Level 3.5L, Chloride Level 108H, Carbon Dioxide Level 20L, Anion Gap 12, Blood Urea Nitrogen 12, Creatinine 0.62, Estimat Glomerular Filtration Rate > 60, BUN/ Creatinine Ratio 19, Glucose Level 122H, Calcium Level 9.4, Corrected Calcium 9.2, Total Bilirubin 0.7, Aspartate Amino Transf (AST/SGOT) 80H, Alanine Aminotransferase (ALT/SGPT) 86H, Alkaline Phosphatase 97, Total Protein 7.5, Albumin 4.3, Lipase 05389Z, Serum Test, Qualitative NEGATIVE 02/24/18 11:34: Urine Color YELLOW, Urine Clarity CLEAR, Urine pH 6, Urine Specific [place] 1.010L, Urine Protein NEGATIVE, Urine Glucose (UA) NEGATIVE, Urine Ketones NEGATIVE, Urine Nitrite NEGATIVE, Urine Bilirubin NEGATIVE, Urine Urobilinogen NORMAL, Urine Leukocyte Esterase 1+H, Urine RBC (Auto) 1+H, Urine RBC NONE, Urine WBC 0-2, Urine Squamous Epithelial Cells 2-5, Urine Crystals NONE, Urine Bacteria TRACE, Urine Casts NONE, Urine Mucus NEGATIVE, Urine Culture Indicated NO 02/25/18 05:42: White Blood Count 9.6, Red Blood Count 3.79L, Hemoglobin 11.0L, Hematocrit 34L, Mean Corpuscular Volume 89, Mean Corpuscular Hemoglobin 29, Mean Corpuscular Hemoglobin Concent 33, Red Cell Distribution Width 13.0, Platelet Count 273, Mean Platelet Volume 10.7H, Neutrophils (%) (Auto) 71, Lymphocytes (%) (Auto) 20 , Monocytes (%) (Auto) 7, Eosinophils (%) (Auto) 1, Basophils (%) (Auto) 0, Neutrophils # (Auto) 6.9, Lymphocytes # (Auto) 2.0, Monocytes # (Auto) 0.7, Eosinophils # (Auto) 0.1, Basophils # (Auto) 0.0, Sodium Level 140, Potassium Level 3.2L, Chloride Level 110H, Carbon Dioxide Level 21, Anion Gap 9, Blood Urea Nitrogen 8, Creatinine 0.51L, Estimat Glomerular Filtration Rate > 60, BUN/ Creatinine Ratio 16, Glucose Level 100, Calcium Level 8.4L, Corrected Calcium 8.8, Total Bilirubin 0.7, Aspartate Amino Transf (AST/SGOT) 62H, Alanine Aminotransferase (ALT/SGPT) 113H, Alkaline Phosphatase 97, Total Protein 6.0L, Albumin 3.5, Lipase 723H Radiology NAME: MEL LUNA [facility] REC#: [id number] PT STATUS: ADM IN : 1985 PHYSICIAN: ANNIE DIAZ MD ADMIT DATE: 02/24/18/ Signed Date of Exam: 02/24/18 CT ABDOMEN/PELVIS WO PROCEDURE: CT abdomen and pelvis without contrast. TECHNIQUE: Multiple contiguous axial images were obtained through the abdomen and pelvis without the use of intravenous contrast. INDICATION: Severe abdominal pain. Patient reports history of cholecystectomy approximately one month ago. COMPARISON: Abdominal ultrasound performed on 05/23/2017. FINDINGS: Absence of intravenous contrast decreases sensitivity for detection of focal lesions and vascular pathology. LOWER THORAX: Mild basilar subsegmental atelectasis. Visualized heart is normal in size. DIAPHRAGM: Unremarkable. LIVER: Normal. GALLBLADDER: Surgically absent. BILE DUCTS: No biliary ductal dilatation. No calcified stone is demonstrated in the common bile duct. SPLEEN: Normal. PANCREAS: There is marked peripancreatic inflammatory change and stranding fluid. No focal peripancreatic collection is demonstrated. There is no pancreatic ductal dilatation. ADRENAL GLANDS: No nodules. KIDNEYS AND URETERS: No hydronephrosis. There is a punctate 2 mm calculus in the lower pole of the right kidney. The visualized ureters are normal. STOMACH AND BOWEL: Stomach is physiologically-distended. No bowel obstruction. No inflammatory changes. APPENDIX: Normal. PELVIC ORGANS/BLADDER: Bladder is normal. Uterus demonstrates a normal CT appearance. The left ovary is mildly enlarged relative to the right, measuring up to 5.3 x 3.0 cm, with suggestion of a cyst medially. PERITONEUM AND RETROPERITONEUM: As above, there is moderate peripancreatic stranding and fluid. No focal collection. No pneumoperitoneum. LYMPH NODES: No lymphadenopathy. VESSELS: Abdominal aorta is nonaneurysmal. ABDOMINAL WALL: Mild stranding in the subcutaneous fat at the level of the umbilicus, likely related to recent surgery. BONES: No acute abnormality. IMPRESSION: Acute pancreatitis, with associated moderate peripancreatic inflammatory change and stranding fluid. No focal peripancreatic collection is seen. No calcified gallstone in the biliary tree. The left ovary is asymmetrically enlarged relative to the right, with suggestion of a cystic lesion. Further evaluation can be obtained with dedicated pelvic ultrasound. Nonobstructing right lower pole renal calculus. Report was faxed/called to [facility] ER by garima at 12:02 am. Dictated by: Dictated on workstation # [id number] Dict: 02/24/18 1131 Trans: 02/24/18 1544 Interpreted by: EMILEE KAPADIA DO Electronically signed by: EMILEE KAPADIA DO 02/24/18 1544 Assessment/Plan Assessment/Plan Assessment & Plan 1. Acute pancreatitis -Patient to be admitted to [facility] and receive IV fluids. -Recheck pancreatic enzymes, CBC and chemistries in the morning. -Surgical consultation 02/25 -The lipase level has decreased. -I encouraged her to try Jell-O today. -Plan on rechecking the CBC, CMP and lipase in the morning. Clinical Quality Measures DVT/VTE Risk/Contraindication: Risk Factor Score Per Nursin RFS Level Per Nursing on Admit: 3=High MCKENNA MENARD MD Feb 25, 2018 08:08
[2018-02-25] MEDS: NS W/KCL 20 MEQ/L 1,000 ML IV SCH ×2 (09:31→19:57)
[2018-02-25 12:00] VITALS: BP 120/62
--- NOTE | 2018-02-25 12:40 | CONSULTATION REPORT ---
DATE OF SERVICE: 02/25/2018 ATTENDING PRIMARY CARE PHYSICIAN: Latrice Camara DO. ADMITTING PHYSICIAN: Eric Sheikh MD. HISTORY OF PRESENT ILLNESS: The patient is a 32-year-old female who presented to the Emergency Department with pain in the epigastric region. She stated that the pain was sharp in nature and significant. She did not report any associated symptoms with nausea, no vomiting as well as no diarrhea, no constipation. She did have a laparoscopic cholecystectomy performed approximately one month ago for biliary dyskinesia. A cholangiogram was also performed during the procedure, which did not show any gallstones or common duct stones. Upon examination, she did have elevation of pancreatic enzymes as well as mild inflammatory changes of the pancreas on CT scan consistent with pancreatitis. No ductal dilatation was identified. Total bilirubin was normal. PAST MEDICAL HISTORY: None. PAST SURGICAL HISTORY: Laparoscopic cholecystectomy on 01/25/2018. ALLERGIES: No known drug allergies. MEDICATIONS: None. SOCIAL HISTORY: Negative smoke, negative alcohol. FAMILY HISTORY: Noncontributory. VITAL SIGNS: Temperature 98.6, blood pressure 111/65, pulse 60, respirations 12, pulse ox 98% on room air. REVIEW OF SYSTEMS: Well-nourished female currently in no acute distress. She is not experiencing any shortness of breath or difficulty breathing. No chest pain, palpitations, diaphoresis. After eating or drinking some things, she will have some mild episodic episodes of epigastric pain, which is sharp and crampy in nature. She states that today has been much less severe than yesterday. No diarrhea, constipation, no red blood per rectum, no dark tarry stools. No fever, chills, no recent inadvertent weight loss. All other review of systems negative. PHYSICAL EXAMINATION: CHEST: Clear. Good breath sounds bilaterally. HEART: Regular, no murmurs. EXTREMITIES: No lower extremity edema, negative Homans sign. HEENT: No scleral icterus. NECK: No cervical lymphadenopathy. ABDOMEN: Soft, nondistended. There is mild discomfort in the epigastric region on deep palpation. There are no peritoneal signs. SKIN: Warm, dry. LABORATORY DATA: WBC 9.6, hemoglobin 11.0, hematocrit 34, platelets 273. Total bilirubin 0.7, lipase 723 down [place] [address]. ASSESSMENT AND PLAN: A 32-year-old female with idiopathic pancreatitis. This may be due to a transient sphincter of Oddi spasm versus biliary sludge causing stasis and backup of pancreatic enzymes. This may be due to anesthesia or medication induced as well from her previous surgery. At this time, she is improving. We will continue with conservative management with IV fluids as well as bowel rest. She is tolerating a clear liquid diet without any difficulty and we will advance her to a low fat diet. When she is tolerating a diet, has adequate pain control, she may be discharged home. We will recommend continuing a low fat diet for the next 6 weeks. Job ID: [id number] DocumentID: [id number] Dictated Date: 02/25/2018 11:11:38 Media Operator Date: 02/25/2018 12:38:52 Dictated By: BETHANY LIZARRAGA MD MTDD
[2018-02-25] MEDS: fentaNYL INJECTION 100 MCG/2 ML AMP IV PRN ×2 (15:38→21:43)
[2018-02-25 15:56] VITALS: BP 123/74
[2018-02-25 19:50] VITALS: BP 123/69
[2018-02-26] VITALS: BP 111/63
[2018-02-26 04:00] VITALS: BP 118/62
[2018-02-26] MEDS: NS W/KCL 20 MEQ/L 1,000 ML IV SCH ×2 (05:53→15:28)
[2018-02-26 06:58] LABS: BASOPHILS % (AUTO) 0 % (0-10); EOSINOPHILS # (AUTO) 0.2 10^3/uL (0.0-0.3); EOSINOPHILS % (AUTO) 2 % (0-10); HEMATOCRIT 35 % (35-52); HEMOGLOBIN 11.3 G/DL (11.5-16.0); LYMPHOCYTES # (AUTO) 2.2 X 10^3 (1.0-4.0); LYMPHOCYTES % (AUTO) 24 % (12-44); MEAN CORPUSCULAR HEMOGLOBIN 29 PG (25-34); MEAN CORPUSCULAR HGB CONC 33 G/DL (32-36); MEAN CORPUSCULAR VOLUME 89 FL (80-99); MEAN PLATELET VOLUME 10.4 FL (7.4-10.4); MONOCYTES # (AUTO) 0.7 X 10^3 (0.0-1.0); MONOCYTES % (AUTO) 8 % (0-12); NEUTROPHILS # (AUTO) 5.9 X 10^3 (1.8-7.8); NEUTROPHILS % (AUTO) 65 % (42-75); PLATELET COUNT 268 10^3/uL (130-400); RED BLOOD COUNT 3.92 10^6/uL (4.35-5.85); WHITE BLOOD COUNT 9.1 10^3/uL (4.3-11.0)
[2018-02-26 07:28] LABS: ALANINE AMINOTRANSFERASE 126 U/L (0-55); ALBUMIN 3.8 GM/DL (3.2-4.5); ALKALINE PHOSPHATASE 161 U/L (40-136); BILIRUBIN,TOTAL 0.9 MG/DL (0.1-1.0); BUN/CREATININE RATIO 10; CALCIUM 8.9 MG/DL (8.5-10.1); CARBON DIOXIDE 22 MMOL/L (21-32); CHLORIDE 110 MMOL/L (98-107); CREATININE SERUM 0.58 MG/DL (0.60-1.30); GFR ESTIMATED > 60; GLUCOSE 93 MG/DL (70-105); LIPASE 136 U/L (8-78); POTASSIUM 3.8 MMOL/L (3.6-5.0); SODIUM 139 MMOL/L (135-145); TOTAL PROTEIN 6.6 GM/DL (6.4-8.2)
[2018-02-26 08:00] VITALS: BP 95/53
--- NOTE | 2018-02-26 09:51 | Progress Note-Hospitalist ---
PRAVIN OLSON 02/26/18 0951: Subjective HPI/CC On Admission Date Seen by Provider: Feb 26, 2018 Time Seen by Provider: 09:00 Subjective/Events-last exam Patient reports pain is much improved Lipase improved Dr Zhu consulted No nausea Tolerating CLD Review of Systems Gastrointestinal: Abdominal Pain Objective Exam Vital Signs Vital Signs Date Time Temp Pulse Resp B/P (MAP) Pulse Ox O2 Delivery O2 Flow Rate FiO2 02/26/18 18:15 75 20 110/57 97 Room Air 02/26/18 16:00 99.5 Capillary Refill : Less Than 3 Seconds General Appearance: No Apparent Distress, WD/WN Neck: Full Range of Motion, Normal Inspection, Non Tender, Supple, Carotid Bruit Respiratory: Chest Non Tender, Lungs Clear, Normal Breath Sounds, No Accessory Muscle Use, No Respiratory Distress Cardiovascular: Regular Rate, Rhythm, No Edema, No Gallop, No JVD, No Murmur, Normal Peripheral Pulses Gastrointestinal: Normal Bowel Sounds, No Organomegaly, No Pulsatile Mass, Soft , Tenderness Neurologic/Psychiatric: Alert, Oriented x3, No Motor/Sensory Deficits, Normal Mood/Affect Skin: Normal Color, Warm/Dry Results/Procedures Lab Laboratory Tests 02/26/18 06:40 Patient resulted labs reviewed. Assessment/Plan Assessment and Plan Assess & Plan/Chief Complaint Assessment: Acute pancreatitis Recent choly due to biliary dyskinesia uncomplicated by Dr Zhu Obesity GERD Plan: Await Dr Marko reyna Diagnosis/Problems Diagnosis/Problems (1) acute pancreatitis Status: Acute (2) BILIARY DYSKINESIA Status: Chronic Clinical Quality Measures DVT/VTE Risk/Contraindication: Risk Factor Score Per Nursin RFS Level Per Nursing on Admit: 3=High JACK BERRY MED STUDENT 02/26/18 1214: Subjective HPI/CC On Admission CC: Pancreatitis HPI: Pt. was admitted from the ED after presenting with acute sharp abdominal pain primarily in the epigastric region. She is currently feeling better with no pain. She claims that she slept well through the night and has a good appetite this morning. The pt. reports no nausea or diarrhea currently but did have episodes of vomiting yesterday. She has been up and walking around and reports that her bowels are moving. She states that she has had a bad headache since last night. PMH: no chronic medical problems PSH: gallbladder Allergies: NKDA Meds: no current medications SH: Pt. does not drink, does not use tobacco FH: Pt. reports no known chronic medical problems Focused Exam Respiratory: Chest Non Tender, Lungs Clear, Normal Breath Sounds, No Accessory Muscle Use, No Respiratory Distress Cardiovascular: Regular Rate, Rhythm, No Edema, No Gallop, No JVD, No Murmur, Normal Peripheral Pulses Skin: normal color, warm/dry Objective Exam General Appearance: No Apparent Distress, WD/WN HEENT: PERRL/EOMI, TMs Normal, Normal ENT Inspection, Pharynx Normal Neck: Full Range of Motion, Normal Inspection, Non Tender, Supple Respiratory: Chest Non Tender, Lungs Clear, Normal Breath Sounds, No Respiratory Distress Cardiovascular: Regular Rate, Rhythm, No Edema, No Gallop, No JVD, No Murmur, Normal Peripheral Pulses Gastrointestinal: Normal Bowel Sounds, No Organomegaly, No Pulsatile Mass, Soft Neurologic/Psychiatric: Alert, Oriented x3, No Motor/Sensory Deficits, Normal Mood/Affect Skin: Normal Color, Warm/Dry Lymphatic: No Adenopathy Assessment/Plan Assessment and Plan Assess & Plan/Chief Complaint Assessment: 1) Acute pancreatitis PRAVIN OLSON DO Feb 26, 2018 09:51 JACK BERRY MED STUDENT Feb 26, 2018 12:14
[2018-02-26 12:46] VITALS: BP 111/51
--- NOTE | 2018-02-26 13:14 | Diagnostic Imaging Report ---
PROCEDURE: US abdomen complete. TECHNIQUE: Multiple real-time grayscale images were obtained over the abdomen in various projections. INDICATION: Pancreatitis. FINDINGS: Liver is normal in size at 17 cm. There is some increased echogenicity throughout the liver, suggestive of hepatic steatosis. No discrete liver mass is identified. The gallbladder is surgically absent. No biliary duct dilatation is seen. The pancreas is moderately obscured by bowel gas. The visualized pancreatic head and proximal body are unremarkable. No peripancreatic fluid collection is seen. The spleen is unremarkable. Aorta is obscured by bowel gas. The IVC is unremarkable. The right and left kidneys are unremarkable. No calculi or hydronephrosis is identified. There is no ascites. IMPRESSION: 1. Hepatic steatosis. 2. Status post cholecystectomy. 3. Otherwise, unremarkable abdominal ultrasound. Dictated by: Dictated on workstation # [id number]
--- NOTE | 2018-02-26 14:02 | Diagnostic Imaging Report ---
INDICATION: Pancreatitis. PROCEDURE: US PELVIC (NON OB) TECHNIQUE: Multiple Real-time grayscale images were obtained over the pelvis in various projections transabdominally. INDICATION: Pain. FINDINGS: The uterus measures 8.9 x 6.1 x 4.4 cm. The endometrium is 9 mm in thickness. No myometrial mass is seen. The right ovary measures 4.1 x 2.8 x 2.1 cm and the left ovary measures 2.5 x 2.9 x 2.5 cm. There is blood flow to both ovaries. The ovaries contain small follicles. No adnexal mass is seen. Moderate free fluid is present. IMPRESSION: Unremarkable transvaginal pelvic ultrasound apart from moderate free fluid. Dictated by: Dictated on workstation # [id number]
[2018-02-26 16:00] VITALS: BP 110/57
--- NOTE | 2018-02-26 17:45 | Progress Note (SOAP) ---
Subjective Date Seen by a Provider: Feb 26, 2018 Time Seen by a Provider: 17:40 Subjective/Events-last exam doing well. tolerating diet. no abdominal pain, pancreatic enzymes normalizing. Objective Exam Vital Signs Date Time Temp Pulse Resp B/P (MAP) Pulse Ox O2 Delivery O2 Flow Rate FiO2 02/26/18 16:00 99.5 75 20 110/57 (74) 97 Room Air 02/26/18 12:46 98.3 84 16 111/51 (71) 96 Room Air 02/26/18 08:46 Room Air 02/26/18 08:00 98.8 73 16 95/53 (67) 98 Room Air 02/26/18 04:00 98.9 71 20 118/62 (80) 98 Room Air 02/26/18 00:00 99.8 80 20 111/63 (79) 96 Room Air 02/25/18 20:00 Room Air 02/25/18 19:50 98.6 81 16 123/69 (87) 97 Room Air I & O 02/26/18 07:00 Intake Total 4420 ml Balance 4420 ml Capillary Refill : Less Than 3 Seconds General Appearance: No Apparent Distress HEENT: PERRL/EOMI Neck: Full Range of Motion Respiratory: Chest Non Tender, Lungs Clear Cardiovascular: Regular Rate, Rhythm Gastrointestinal: normal bowel sounds, non tender, soft Extremity: Normal Capillary Refill Neurologic/Psychiatric: Alert, Oriented x3 Skin: Normal Color Lymphatic: No Adenopathy Results Lab Laboratory Tests 02/26/18 06:40: White Blood Count 9.1, Red Blood Count 3.92L, Hemoglobin 11.3L, Hematocrit 35, Mean Corpuscular Volume 89, Mean Corpuscular Hemoglobin 29, Mean Corpuscular Hemoglobin Concent 33, Red Cell Distribution Width 13.0, Platelet Count 268, Mean Platelet Volume 10.4, Neutrophils (%) (Auto) 65, Lymphocytes (%) (Auto) 24 , Monocytes (%) (Auto) 8, Eosinophils (%) (Auto) 2, Basophils (%) (Auto) 0, Neutrophils # (Auto) 5.9, Lymphocytes # (Auto) 2.2, Monocytes # (Auto) 0.7, Eosinophils # (Auto) 0.2, Basophils # (Auto) 0.0, Sodium Level 139, Potassium Level 3.8, Chloride Level 110H, Carbon Dioxide Level 22, Anion Gap 7, Blood Urea Nitrogen 6L, Creatinine 0.58L, Estimat Glomerular Filtration Rate > 60, BUN /Creatinine Ratio 10, Glucose Level 93, Calcium Level 8.9, Corrected Calcium 9.1 , Total Bilirubin 0.9, Aspartate Amino Transf (AST/SGOT) 93H, Alanine Aminotransferase (ALT/SGPT) 126H, Alkaline Phosphatase 161H, Total Protein 6.6, Albumin 3.8, Lipase 136H Assessment/Plan Assessment/Plan Assess & Plan/Chief Complaint idiopathic pancreatitis. resolving. no abdominal pain. tolerating low fat diet. home soon. continue low fat diet 6 weeks. Clinical Quality Measures DVT/VTE Risk/Contraindication: Risk Factor Score Per Nursin RFS Level Per Nursing on Admit: 3=High BETHANY LIZARRAGA MD Feb 26, 2018 5:45 pm
[2018-02-26 18:15] VITALS: BP 110/57
--- NOTE | 2018-02-26 20:45 | Discharge Summary-Hospitalist ---
Diagnosis/Chief Complaint Date of Admission Feb 24, 2018 at 12:15 Date of Discharge Feb 26, 2018 at 18:25 Discharge Date: Feb 26, 2018 Discharge Time: 1800 Discharge Diagnosis (1) acute pancreatitis Status: Resolved (2) BILIARY DYSKINESIA Status: Chronic Discharge Summary Discharge Physical Exam Allergies: Coded Allergies: No Known Drug Allergies (Unverified , 01/22/18) Vitals & I&Os Vital Signs Date Time Temp Pulse Resp B/P (MAP) Pulse Ox O2 Delivery O2 Flow Rate FiO2 02/26/18 18:15 75 20 110/57 97 Room Air 02/26/18 16:00 99.5 General Appearance: No Apparent Distress, WD/WN, Chronically ill, Obese Respiratory: Chest Non Tender, Lungs Clear, Normal Breath Sounds, No Accessory Muscle Use, No Respiratory Distress Cardiovascular: Regular Rate, Rhythm, No Edema, No Gallop, No JVD, No Murmur, Normal Peripheral Pulses Gastrointestinal: Normal Bowel Sounds, No Organomegaly, No Pulsatile Mass, Soft , Tenderness Neurologic/Psychiatric: Alert, Oriented x3, No Motor/Sensory Deficits, Normal Mood/Affect Hospital Course See progress note from today for hospital course. Labs (last 24 hrs) Laboratory Tests 02/26/18 06:40: White Blood Count 9.1, Red Blood Count 3.92L, Hemoglobin 11.3L, Hematocrit 35, Mean Corpuscular Volume 89, Mean Corpuscular Hemoglobin 29, Mean Corpuscular Hemoglobin Concent 33, Red Cell Distribution Width 13.0, Platelet Count 268, Mean Platelet Volume 10.4, Neutrophils (%) (Auto) 65, Lymphocytes (%) (Auto) 24 , Monocytes (%) (Auto) 8, Eosinophils (%) (Auto) 2, Basophils (%) (Auto) 0, Neutrophils # (Auto) 5.9, Lymphocytes # (Auto) 2.2, Monocytes # (Auto) 0.7, Eosinophils # (Auto) 0.2, Basophils # (Auto) 0.0, Sodium Level 139, Potassium Level 3.8, Chloride Level 110H, Carbon Dioxide Level 22, Anion Gap 7, Blood Urea Nitrogen 6L, Creatinine 0.58L, Estimat Glomerular Filtration Rate > 60, BUN /Creatinine Ratio 10, Glucose Level 93, Calcium Level 8.9, Corrected Calcium 9.1 , Total Bilirubin 0.9, Aspartate Amino Transf (AST/SGOT) 93H, Alanine Aminotransferase (ALT/SGPT) 126H, Alkaline Phosphatase 161H, Total Protein 6.6, Albumin 3.8, Lipase 136H Patient resulted labs reviewed. Discussion & Recommendations Discharge Planning: <30 minutes discharge planning Discharge Home Medications: Active Scripts Active No Active Prescriptions or Reported Medications Instructions to patient/family Please see electronic discharge instructions given to patient. Clinical Quality Measures DVT/VTE Risk/Contraindication: Risk Factor Score Per Nursin RFS Level Per Nursing on Admit: 3=High PRAVIN OLSON DO Feb 26, 2018 20:45
== END 2018-02-26 18:25 | disposition home or self-care (01) | DRG 440 ==
LOC: EDUNIT# 10:31 → ER 10:32 → 4TH 12:15
PROVIDERS: ADMIT Family Medicine; ATTEND Family Medicine
DX: K85.00 Idiopathic acute pancreatitis without necrosis or infection (principal); K21.9 Gastro-esophageal reflux disease without esophagitis; E66.9 Obesity, unspecified; Z68.36 Body mass index [BMI] 36.0-36.9, adult
CPT/HCPCS: 36415; 74176; 76700; 76830; 80053; 81000; 83690; 84703; 85025; 96361; 96374; 96375

== ENCOUNTER 2021-04-17 18:54 | Emergency (ER) | payer SELFPAY ==
[~2021-04-17] VITALS: Ht 155 cm; Wt 91.0 kg
[~2021-04-17 18:54] MED LIST changes: -OMEP20CA12 PO; +OMEP20CA18 PO
[2021-04-17 19:17] LABS: BILIRUBIN,URINE NEGATIVE (NEGATIVE); CLARITY,URINE CLEAR; COLOR,URINE YELLOW; GLUCOSE, URINE (UA) NEGATIVE (NEGATIVE); KETONES,URINE NEGATIVE (NEGATIVE); LEUKOCYTE ESTERASE ,URINE NEGATIVE (NEGATIVE); NITRITE,URINE NEGATIVE (NEGATIVE); PROTEIN,URINE NEGATIVE (NEGATIVE)
[2021-04-17 19:23] LABS: BACTERIA,URINE NEGATIVE /HPF; RBC,URINE 0-2 /HPF; SQUAMOUS EPITHELIAL CELL,UR 0-2 /HPF; WBC,URINE 0-2 /HPF
[2021-04-17 19:29] LABS: BASOPHILS # (AUTO) 0.1 10^3/uL (0.0-0.1); BASOPHILS % (AUTO) 0 % (0-10); EOSINOPHILS # (AUTO) 0.1 10^3/uL (0.0-0.3); EOSINOPHILS % (AUTO) 1 % (0-10); HEMATOCRIT 39 % (35-52); HEMOGLOBIN 13.4 g/dL (11.5-16.0); LYMPHOCYTES # (AUTO) 2.6 10^3/uL (1.0-4.0); LYMPHOCYTES % (AUTO) 13 % (12-44); MEAN CORPUSCULAR HEMOGLOBIN 30 pg (25-34); MEAN CORPUSCULAR HGB CONC 34 g/dL (32-36); MEAN CORPUSCULAR VOLUME 87 fL (80-99); MEAN PLATELET VOLUME 10.3 fL (9.0-12.2); MONOCYTES # (AUTO) 1.3 10^3/uL (0.0-1.0); MONOCYTES % (AUTO) 7 % (0-12); NEUTROPHILS # (AUTO) 15.2 10^3/uL (1.8-7.8); NEUTROPHILS % (AUTO) 79 % (42-75); PLATELET COUNT 307 10^3/uL (130-400); WHITE BLOOD COUNT 19.3 10^3/uL (4.3-11.0)
--- NOTE | 2021-04-17 19:36 | ED Abdominal Pain ---
General Chief Complaint: Abdominal/GI Problems Stated Complaint: ABD PAIN Source of Information: Patient History of Present Illness Date Seen by Provider: Apr 17, 2021 Time Seen by Provider: 19:06 Initial Comments PT ARRIVES VIA POV FROM HOME C/O MID LOWER ABDOMINAL PAIN X 2 DAYS, WORSE SINCE LAST NIGHT + NAUSEA, NO VOMITING NO BM X 2 DAYS NO FEVER NO URINARY SYMPTOMS LMP 02/03/21, NO CONTROL. HAS NOT TAKEN A HOME TEST NO VAGINAL DISCHARGE OR SPOTTING PT HAS PCOS--PERIODS ALWAYS IRREGULAR TOOK TYLENOL 2 HOURS AGO WITHOUT RELIEF Allergies and Home Medications Allergies Coded Allergies: No Known Drug Allergies (Unverified , 01/22/18) Patient Home Medication List Home Medication List Reviewed: Yes Ciprofloxacin HCl (Ciprofloxacin HCl) 500 Mg Tablet, 500 MG PO BID Prescribed by: ZAMZAM SORENSON on 04/17/212000 Ketorolac Tromethamine (Ketorolac Tromethamine) 10 Mg Tablet, 10 MG PO Q6H Prescribed by: ZAMZAM SORENSON on 04/17/212000 Metronidazole (Metronidazole) 500 Mg Tablet, 500 MG PO BID Prescribed by: ZAMZAM SORENSON on 04/17/212000 Ondansetron (Ondansetron Odt) 4 Mg Tab.rapdis, 4 MG PO Q4H Prescribed by: ZAMZAM SORENSON on 04/17/212000 Review of Systems Review of Systems Constitutional: no symptoms reported Respiratory: No Symptoms Reported Cardiovascular: No Symptoms Reported Gastrointestinal: See HPI, Abdominal Pain, Constipated, Nausea; Denies Vomiting Genitourinary: See HPI Musculoskeletal: no symptoms reported Skin: no symptoms reported Psychiatric/Neurological: No Symptoms Reported Endocrine: No Symptoms Reported Hematologic/Lymphatic: No Symptoms Reported Past Xcpmpoi-Mtyggo-Edekrc Hx Patient Social History Tobacco Use?: No Substance use?: No Alcohol Use?: No Immunizations Up To Date Tetanus Booster (TDap): Unknown PED Vaccines UTD: Yes Seasonal Allergies Seasonal Allergies: Yes Past Medical History Surgeries: Yes Gallbladder Respiratory: No Cardiac: No Neurological: No Reproductive Disorders: Yes (TAKES METFORMIN FOR OVARIES) Female Reproductive Disorders: Menstrual Problems, Polycystic Ovarian Dis Sexually Transmitted Disease: No HIV/AIDS: No Genitourinary: No Gastrointestinal: Yes Gastroesophageal Reflux, Gall Bladder Disease Musculoskeletal: No Endocrine: No HEENT: No Loss of Vision: Denies Hearing Impairment: Denies Cancer: No Psychosocial: No Integumentary: No Blood Disorders: No Adverse Reaction/Blood Tranf: No Family Medical History Patient reports no known family medical history. Physical Exam Vital Signs Vital Signs - First Documented 04/17/21 19:27 Temp 36.3 Pulse 110 Resp 16 B/P (MAP) 139/96 (110) Pulse Ox 97 O2 Delivery Room Air Capillary Refill : Height/Weight/BMI Height: 5'3.00" Weight: 205lbs. 1.0oz. 93.554554lv; 36.3 BMI Method:Stated General Appearance: WD/WN, no apparent distress, obese, other (WALKS UPRIGHT AND MOVES WITHOUT DIFFICULTY. 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, no motor/sensory deficits, alert, normal mood/affect, oriented x 3 Skin: normal color (PT IS ), warm/dry; No rash Focused Exam Sepsis Stage: Ruled Out Possible Source: GI Tract/Intra-Abdominal Lactate Level 04/17/21 20:20: Lactic Acid Level 0.90 Time of Focused Exam: 19:55 Respiratory: Normal Breath Sounds, No Accessory Muscle Use, No Respiratory Distress Cardiovascular: Regular Rate, Rhythm, No Murmur Capillary Refill: Less Than 3 Seconds Skin: normal color, warm/dry Lactic Acid Level Laboratory Tests Test 04/17/21 20:20 Lactic Acid Level 0.90 MMOL/L (0.50-2.00) Within 3hrs of presentation: Admin fluids, Admin ABX, Blood cultures prior to ABX's, Focus exam, Lactate level Progress/Results/Core Measures Results/Orders Lab Results Laboratory Tests Test 04/17/21 19:08 04/17/21 19:20 04/17/21 20:20 Range/Units Urine Color YELLOW Urine Clarity CLEAR Urine pH 7.0 5-9 Urine Specific Marshall 1.015 L 1.016-1.022 Urine Protein NEGATIVE NEGATIVE Urine Glucose (UA) NEGATIVE NEGATIVE Urine Ketones NEGATIVE NEGATIVE Urine Nitrite NEGATIVE NEGATIVE Urine Bilirubin NEGATIVE NEGATIVE Urine Urobilinogen 1.0 < = 1.0 MG/DL Urine Leukocyte Esterase NEGATIVE NEGATIVE Urine RBC (Auto) 2+ H NEGATIVE Urine RBC 0-2 /HPF Urine WBC 0-2 /HPF Urine Squamous Epithelial Cells 0-2 /HPF Urine Renal Epithelial Cells NONE /HPF Urine Crystals NONE /LPF Urine Bacteria NEGATIVE /HPF Urine Casts NONE /LPF Urine Mucus NEGATIVE /LPF Urine Culture Indicated NO White Blood Count 19.3 H 4.3-11.0 10^3/uL Red Blood Count 4.50 3.80-5.11 10^6/uL Hemoglobin 13.4 11.5-16.0 g/dL Hematocrit 39 35-52 % Mean Corpuscular Volume 87 80-99 fL Mean Corpuscular Hemoglobin 30 25-34 pg Mean Corpuscular Hemoglobin Concent 34 32-36 g/dL Red Cell Distribution Width 12.6 10.0-14.5 % Platelet Count 307 130-400 10^3/uL Mean Platelet Volume 10.3 9.0-12.2 fL Immature Granulocyte % (Auto) 0 % Neutrophils (%) (Auto) 79 H 42-75 % Lymphocytes (%) (Auto) 13 12-44 % Monocytes (%) (Auto) 7 0-12 % Eosinophils (%) (Auto) 1 0-10 % Basophils (%) (Auto) 0 0-10 % Neutrophils # (Auto) 15.2 H 1.8-7.8 10^3/uL Lymphocytes # (Auto) 2.6 1.0-4.0 10^3/uL Monocytes # (Auto) 1.3 H 0.0-1.0 10^3/uL Eosinophils # (Auto) 0.1 0.0-0.3 10^3/uL Basophils # (Auto) 0.1 0.0-0.1 10^3/uL Immature Granulocyte # (Auto) 0.1 0.0-0.1 10^3/uL Neutrophils % (Manual) 77 % Lymphocytes % (Manual) 11 % Monocytes % (Manual) 11 % Eosinophils % (Manual) 1 % Blood Morphology Comment NORMAL Sodium Level 138 135-145 MMOL/L Potassium Level 3.4 L 3.6-5.0 MMOL/L Chloride Level 103 98-107 MMOL/L Carbon Dioxide Level 22 21-32 MMOL/L Anion Gap 13 5-14 MMOL/L Blood Urea Nitrogen 12 7-18 MG/DL Creatinine 0.68 0.60-1.30 MG/DL Estimat Glomerular Filtration Rate 100 BUN/Creatinine Ratio 18 Glucose Level 141 H 70-105 MG/DL Calcium Level 9.2 8.5-10.1 MG/DL Corrected Calcium 9.1 8.5-10.1 MG/DL Total Bilirubin 0.7 0.1-1.0 MG/DL Aspartate Amino Transf (AST/SGOT) 19 5-34 U/L Alanine Aminotransferase (ALT/SGPT) 41 0-55 U/L Alkaline Phosphatase 82 40-136 U/L Total Protein 8.1 6.4-8.2 GM/DL Albumin 4.1 3.2-4.5 GM/DL Procalcitonin 0.05 <0.10 NG/ML Lactic Acid Level 0.90 0.50-2.00 MMOL/L My Orders Orders - ZAMZAM SORENSON DO Urine Bedside (04/17/21 19:05) Ua Culture If Indicated (04/17/21 19:05) Ed Iv/Invasive Line Start (04/17/21 19:22) Cbc With Automated Diff (04/17/21 19:22) Comprehensive Metabolic Panel (04/17/21 19:22) Ct Abd/Pelvis Wo(Kidney Stone) (04/17/21 19:26) Abdomen, Flat & Upright/Decub (04/17/21 19:26) Manual Differential (04/17/21 19:20) Blood Culture (04/17/21 19:50) Urine Culture (04/17/21 19:50) Vital Signs Adult Sepsis Patie Q15M (04/17/21 19:50) Remove Rings In Anticipation O (04/17/21 19:50) Lactic Acid Analyzer (04/17/21 19:50) Lactated Ringers (Lr 1000 Ml Iv Solution (04/17/21 20:00) Procalcitonin (Pct) (04/17/21 19:50) Ciprofloxacin Iv 400mg/200ml (Cipro Iv S (04/17/21 20:00) Metronidazole 500mg/100ml Ivpb (Flagyl 5 (04/17/21 20:00) Ketorolac Injection (Toradol Injection) (04/17/21 20:00) Ondansetron Injection (Zofran Injectio (04/17/21 20:00) Rx-Ondansetron Po (Rx-Zofran Po) (04/17/21 20:02) Rx-Tramadol Hcl (Rx-Ultram) (04/17/21 20:02) Medications Given in ED Current Medications Medications Dose Ordered Sig/Kareem Route Start Time Stop Time Status Last Admin Dose Admin Ciprofloxacin/ Dextrose 200 ml @ 200 mls/hr ONCE ONCE IV 04/17/21 20:00 04/17/21 20:59 DC 04/17/21 20:56 200 MLS/HR Ketorolac Tromethamine 30 mg ONCE ONCE IVP 04/17/21 20:00 04/17/21 20:01 DC 04/17/21 20:17 30 MG Lactated Ringer's 1,000 ml @ 0 mls/hr Q0M ONCE IV 04/17/21 20:00 04/17/21 20:01 DC 04/17/21 20:16 0 MLS/HR Metronidazole 100 ml @ 100 mls/hr ONCE ONCE IV 04/17/21 20:00 04/17/21 20:59 DC 04/17/21 20:59 100 MLS/HR Ondansetron HCl 4 mg ONCE ONCE IVP 04/17/21 20:00 04/17/21 20:01 DC 04/17/21 20:16 4 MG Vital Signs/I&O 04/17/21 04/17/21 19:27 22:00 Temp 36.3 Pulse 110 77 Resp 16 16 B/P (MAP) 139/96 (110) 112/71 Pulse Ox 97 99 O2 Delivery Room Air Room Air Progress Progress Note : Progress Note GIVEN IV FLUIDS GIVEN ZOFRAN AND TORADOL WITH RELIEF OF PAIN AND NAUSEA GIVEN CIPRO + FLAGYL IV UNEVENTFUL ER STAY Diagnostic Imaging Comments ABDOMEN XRAYS--PER RADIOLOGIST REPORT AT 195 FINDINGS: The lung bases are clear. Bowel gas pattern is nonspecific. There are surgical clips in the right upper quadrant. There are no abnormal abdominal calcifications. IMPRESSION: Nonspecific bowel gas pattern. CT ABDOMEN/PELVIS--PER RADIOLOGIST REPORT AT 195 FINDINGS: The heart size is normal. The lung bases are clear. The liver is normal in size without focal lesions. Gallbladder surgically absent. No biliary duct dilatation. Spleen is normal. The pancreas and adrenal glands are unremarkable. There is a 2 mm nonobstructing stone in the right kidney. Left kidney is normal. Aorta is nonaneurysmal. The bowel gas pattern is nonspecific. There is some focal inflammatory change about the sigmoid colon suspect for uncomplicated diverticulitis. The bladder is normal. The uterus is normal. There is no pelvic mass or adenopathy. IMPRESSION: Focal inflammatory change about the sigmoid colon suspect for uncomplicated diverticulitis. 2 mm nonobstructing right renal calculus. No other acute abnormality in the abdomen or pelvis. Reviewed: Reviewed by Me Departure Impression Primary Impression: ACUTE SIGMOID DIVERTICULITIS Disposition: HOME, SELF-CARE Condition: Stable Departure-Patient Inst. Decision time for Depature: 19:59 Referrals: LUPE MALHOTRA DO (PCP) Primary Care Physician ELISE NGUYEN APRN (Family) Primary Care Physician ERIK GAYTAN DO Patient Instructions: Diverticulitis (DC) Add. Discharge Instructions: CLEAR LIQUIDS--WATER, BROTH, JELLO, GATORADE NO FOOD UNTIL YOU ARE RECHECKED AND CLEARED BY DR. RAHMAN NEEDED FOR PAIN OR FEVER FOLLOW UP WITH DR. GAYTAN ON MONDAY, RETURN TO ER IF WORSE All discharge instructions reviewed with patient and/or family. Voiced understanding. Scripts Ondansetron (Ondansetron Odt) 4 Mg Tab.rapdis 4 MG PO Q4H for Nausea/Vomiting, #10 TAB Prov: ZAMZAM SORENSON DO 04/17/21 Metronidazole (Metronidazole) 500 Mg Tablet 500 MG PO BID, #14 TAB 0 Refills Prov: ZAMZAM SORENSON K DO 04/17/21 Ketorolac Tromethamine (Ketorolac Tromethamine) 10 Mg Tablet 10 MG PO Q6H for Pain, #15 TAB Prov: ZAMZAM SORENSON DO 04/17/21 Ciprofloxacin HCl (Ciprofloxacin HCl) 500 Mg Tablet 500 MG PO BID, #14 TAB Prov: ZAMZAM SORENSON K DO 04/17/21 ZAMZAM SORENSON DO Apr 17, 2021 19:36
[2021-04-17 19:44] LABS: EOSINOPHILS % (MANUAL) 1 %; LYMPHOCYTES % (MANUAL) 11 %; MONOCYTES % (MANUAL) 11 %; NEUTROPHILS % (MANUAL) 77 %; RBC MORPH NORMAL
[2021-04-17 19:50] LABS: ALBUMIN 4.1 GM/DL (3.2-4.5); BILIRUBIN,TOTAL 0.7 MG/DL (0.1-1.0); CALCIUM 9.2 MG/DL (8.5-10.1); CREATININE SERUM 0.68 MG/DL (0.60-1.30); POTASSIUM 3.4 MMOL/L (3.6-5.0); TOTAL PROTEIN 8.1 GM/DL (6.4-8.2)
--- NOTE | 2021-04-17 19:54 | Diagnostic Imaging Report ---
PROCEDURE: CT urinary tract, rule out kidney stone. TECHNIQUE: Multiple contiguous axial images were obtained through the abdomen and pelvis without the use of intravenous contrast. Auto Exposure Controls were utilized during the CT exam to meet ALARA standards for radiation dose reduction. INDICATION: Flank pain. FINDINGS: The heart size is normal. The lung bases are clear. The liver is normal in size without focal lesions. Gallbladder surgically absent. No biliary duct dilatation. Spleen is normal. The pancreas and adrenal glands are unremarkable. There is a 2 mm nonobstructing stone in the right kidney. Left kidney is normal. Aorta is nonaneurysmal. The bowel gas pattern is nonspecific. There is some focal inflammatory change about the sigmoid colon suspect for uncomplicated diverticulitis. The bladder is normal. The uterus is normal. There is no pelvic mass or adenopathy. IMPRESSION: Focal inflammatory change about the sigmoid colon suspect for uncomplicated diverticulitis. 2 mm nonobstructing right renal calculus. No other acute abnormality in the abdomen or pelvis. Dictated by: Dictated on workstation # [id number]
--- NOTE | 2021-04-17 19:55 | Diagnostic Imaging Report ---
INDICATION: Abdominal pain. FINDINGS: The lung bases are clear. Bowel gas pattern is nonspecific. There are surgical clips in the right upper quadrant. There are no abnormal abdominal calcifications. IMPRESSION: Nonspecific bowel gas pattern. Dictated by: Dictated on workstation # [id number]
[2021-04-17] MEDS ORDERED: LACTATED RINGERS 1,000 ML IV ONE (20:00)
[2021-04-17] MEDS ORDERED: KETOROLAC 30 MG/ML VIAL IVP ONE (20:00)
[2021-04-17] MEDS ORDERED: ONDANSETRON 4 MG/2 ML (SDV) Z0FRAN IVP ONE (20:00)
[2021-04-17] MEDS ORDERED: metroNIDAZOLE 500MG/100ML IVPB 100 ML IV ONE (20:00)
[2021-04-17] MEDS ORDERED: CIPROFLOXACIN IV 400MG/200ML 200 ML IV ONE (20:00)
[2021-04-17] MEDS ORDERED: CIPR500T5 PO (20:01)
[2021-04-17] MEDS ORDERED: KETO10TA PO (20:01)
[2021-04-17] MEDS ORDERED: METR-145 PO (20:01)
[2021-04-17] MEDS ORDERED: ONDA4TAB11 PO (20:01)
[2021-04-17] MEDS ORDERED: RX-ONDANSETRON 4 MG ODT (ZOFRAN) PPK #4 PO STA (20:02)
[2021-04-17 22:00] VITALS: BP 112/71
== END 2021-04-17 22:02 | disposition home or self-care (01) ==
LOC: EDUNIT# 18:54 → ER 18:57
DX: K57.32 Diverticulitis of large intestine without perforation or abscess without bleeding (principal); E66.9 Obesity, unspecified; Z68.36 Body mass index [BMI] 36.0-36.9, adult
CPT/HCPCS: 36415; 74019; 74176; 80053; 81000; 83605; 84145; 84703; 85007; 85027; 87040; 87088

== ENCOUNTER 2021-06-07 05:41 | Outpatient (CLI) | payer SELFPAY ==
[~2021-06-07] VITALS: Ht 150 cm; Wt 91.0 kg
[~2021-06-07 05:41] MED LIST changes: +CIPR500T5 PO; +KETO10TA PO; +METR-145 PO; +ONDA4TAB11 PO
== END 2021-06-07 14:06 ==
LOC: PREOP 05:41
PROVIDERS: ATTEND Surgery
DX: Z01.818 Encounter for other preprocedural examination (principal)

== ENCOUNTER 2021-06-15 07:00 | Day surgery (SDC) | payer OTHER ==
[~2021-06-15] VITALS: Ht 150 cm; Wt 91.0 kg
[2021-06-15] MEDS ORDERED: PROPOFOL INJECTION 50 ML IV ONE ×2 (07:11→08:23)
[2021-06-15] MEDS ORDERED: MIDAZOLAM 2 MG/2 ML (VERSED) VIAL ONE (07:11)
[2021-06-15] MEDS ORDERED: LACTATED RINGERS 1,000 ML IV STA (07:16)
[2021-06-15 07:48] VITALS: BP 130/83
--- NOTE | 2021-06-15 08:04 | Progress Note-Pre Operative ---
Pre-Operative Progress Note H&P Reviewed The H&P was reviewed, patient examined and no changes noted. Date Seen by Provider: Jun 15, 2021 Time Seen by Provider: 07:59 Date H&P Reviewed: Jun 15, 2021 Time H&P Reviewed: 07:59 Pre-Operative Diagnosis: history of diverticulitis ERIK GAYTAN DO Jun 15, 2021 08:04
[2021-06-15 08:45] VITALS: BP 134/75
--- NOTE | 2021-06-15 08:45 | Progress Note-Post Operative ---
Post-Operative Progess Note Surgeon (s)/Cash Applications Coordinator (s) Surgeon ERIK GAYTAN DO Cash Applications Coordinator: na Pre-Operative Diagnosis history of diverticulitis Post-Operative Diagnosis colon polyps, diverticulosis Procedure & Operative Findings Date of Procedure 06/15/21 Procedure Performed/Findings colonoscopy c hot bx polypectomy x 2 and cold bx polypectomy x 1 Anesthesia Type per heel breaster Estimated Blood Loss Estimated blood loss (mL): scant Specimens/Packing Specimens Removed colon polyps ERIK GAYTAN DO Jun 15, 2021 08:44
--- NOTE | 2021-06-15 08:48 | Discharge Inst-Simple/Standard ---
Discharge Inst-Standard Patient Instructions/Follow Up Plan of Care/Instructions/FU: 2 weeks nikki Activity as Tolerated: Yes Discharge Diet: Regular Diet (high fiber) ERIK GAYTAN DO Jun 15, 2021 08:48
[2021-06-15 08:50] VITALS: BP 135/77
[2021-06-15 08:54] VITALS: BP 116/69
[2021-06-15 08:55] VITALS: BP 116/69
[2021-06-15 09:29] VITALS: BP 116/69
--- NOTE | 2021-06-15 10:27 | OPERATIVE REPORT ---
DATE OF SERVICE: 06/15/2021 PREOPERATIVE DIAGNOSIS: History of diverticulitis. POSTOPERATIVE DIAGNOSES: Colon polyps and diverticulosis. PROCEDURES PERFORMED: Colonoscopy with hot biopsy polypectomy x2 and cold biopsy polypectomy x1 of the sigmoid colon. The hot biopsy polypectomies were ascending colon. SURGEON: Erik Carballo DO. ANESTHESIA: Per HEALTH ASSISTANT. ESTIMATED BLOOD LOSS: Scant. COMPLICATIONS: None. INDICATIONS FOR PROCEDURE: The patient is a 36-year-old female with history of diverticulitis. She understands the risks and benefits of the procedure and wishes to proceed. Consent was signed in the chart. DESCRIPTION OF PROCEDURE: The patient was taken to the endoscopy suite and placed in a left lateral recumbent position. Timeout was performed. Digital rectal exam was performed. No palpable polyps, masses or ulcerations. Scope was inserted in the rectum and advanced all the way to the cecum with minimal difficulty. Prep was adequate with irrigation and suction. Scope was slowly retracted back. No polyps, masses or ulcerations within the cecum. In the ascending colon, two small polyps were present, which hot biopsy polypectomy was performed. Scope was then continuously and slowly retracted back. No polyps, masses or ulcerations in the remainder of the ascending, transverse, and descending colon. In the sigmoid colon, minimal amount of diverticulosis was present. In one area, a very small polyp was present, which cold biopsy polypectomy was performed. This was near diverticulum. Scope was then slowly retracted back into the rectum, where it was attempted to be retroflexed, but due it being narrow, multiple insertions and retractions were made noting no other pathology. The patient tolerated the procedure well without any complications. She was taken to the recovery room in a stable condition. RECOMMENDATIONS: The patient will have repeat colonoscopy in five years. Any issues before that be seen at that time. The patient will follow up in the office in two weeks to discuss. We recommended high fiber diet. CC: Meghan Pena APRN - requested, unable to deliver. Job ID: [id number] DocumentID: [id number] Dictated Date: 06/15/2021 08:47:14 Molder Helper Date: 06/15/2021 10:27:01 Dictated By: ERIK CARBALLO DO [facility]
--- NOTE | 2021-06-15 14:47 | Anesthesia-General Post-Op ---
MAC Patient Condition Mental Status/LOC: Same as Preop Cardiovascular: Satisfactory Nausea/Vomiting: Absent Respiratory: Satisfactory Pain: Controlled Complications: Absent Post Op Complications Complications None Follow Up Care/Instructions Patient Instructions None needed. Anesthesiology Discharge Order Discharge Order Patient is doing well, no complaints, stable vital signs, no apparent adverse anesthesia problems. No complications reported per nursing. GEN MCCABE CRNA Jun 15, 2021 14:47
== END 2021-06-15 09:29 | disposition home or self-care (01) ==
LOC: ENDO 07:00
PROVIDERS: ATTEND Surgery
DX: K63.5 Polyp of colon (principal); K57.30 Diverticulosis of large intestine without perforation or abscess without bleeding; Z90.49 Acquired absence of other specified parts of digestive tract; Z87.19 Personal history of other diseases of the digestive system
CPT/HCPCS: 88305